=== PATIENT | male | born 1950 | race Caucasian/White ===

== ENCOUNTER → 2017-07-03 | Day surgery (SDC) | payer OTHER, BC ==
[2017-06-20 07:46] VITALS: Ht 162.6 cm; Wt 81.8 kg
[~2017-07-03] VITALS: Ht 162.6 cm; Wt 81.8 kg
[~2017-07-03] MED LIST: 500ML BSS 0.3ML EPI 1:1000PF IRRIG ONE; AMVISC PLUS 0.8ML SYRINGE INT OCU ONE; ASCO500T3 PO; ASPCH81X PO; ATROPINE SULFATE 0.1 MG/ML 5ML SYR IV PRN; BSS FLUSH ONE; BUPR-79 PO; CARV12.5 PO; CHOL1000 PO; CLON0.5T3 PO; ENDOCOAT 0.85ML SYRINGE INT OCU ONE; EpHEDrine SULFATE INJ 50 MG/ML AMP IV PRN; EpINEphrine INJ 1MG/ML AMP 1 MG/ML AMP ONE; FERR1TAB23 PO; FINA5TAB PO; FLM4 PO; FRS/40 PO; GLIM4TAB2 PO; LACTATED RINGER'S 1000ML 500 ML IV SCH; LIDOCAINE 4% OP SOLN DROP CHARGE ONE; LIDOCAINE 4% OP SOLN DROP CHARGE OPL SCH; LIDOCAINE HCL 1% MPF 2 ML VIAL ONE; LOSA50TA54 PO; METF-384 PO; MIDAZOLAM HCL 1 MG/ML 2ML VIAL ONE; MIX: 4ML BSS 1ML EPI 1:1000 PF TOP ONE; MOXIFLOXACIN OPH SOLN PER DROP CHARGE ONE; NTRGSL/4 UT; PANT40TA PO; POVIDONE-IODINE OP SOLN 30 ML BTL ONE; PROPARACAINE 0.5% OP SOLN PER DROP CHARGE OPL SCH; SIMV40TA2 PO; SPR25 PO; SUCR1TAB29 PO; SYMIN160 INH; TIOT1SPR INH; TOBRAMYCIN/DEXAMETHASONE OPH OINT PER APPLN CHARGE ONE; VITAMIN B12 PO; VNTHFA/IN INH; WARF2TAB8 PO; ZOLP10TA6 PO; [UNRECOGNIZED DRUG - OTHER] PO
--- NOTE | 2017-07-03 11:35 | History & Physical Bridge - [place] ---
H&P Re-Evaluation Bridge Note: I have examined the patient, reviewed the History & Physical and in the interval since the performance of the History & Physical I have noted the following changes of clinical significance: No changes noted
[2017-07-03] MEDS: PHENYLEPHRINE HCL 2.5% OP SOLN PER DROP CHARGE OPL SCH ×3 (11:38→11:48)
[2017-07-03] MEDS: TROPICAMIDE 1% OP SOLN PER DROP CHARGE OPL SCH ×3 (11:39→11:49)
[2017-07-03] MEDS: CYCLOPENTOLATE HCL 1% OP SOLN PER DROP CHARGE OPL SCH ×3 (11:40→11:50)
[2017-07-03] MEDS: MOXIFLOXACIN OPH SOLN PER DROP CHARGE OPL SCH ×3 (11:41→11:51)
--- NOTE | 2017-07-03 12:41 | [facility] Post Operative Brief Note ---
Immediate Operative Summary Operative Date Jul 03, 2017. Pre-Operative Diagnosis Cataract left eye Post-Operative Diagnosis Same Procedure(s) Performed Left Cataract Phacoemulsification With Intraocular Lens Implant Surgeon Sales Forecast Analyst Surgeon(s) None Estimated Blood Loss Zero Findings left cataract Specimens None Complication(s) None Disposition
--- NOTE | 2017-07-03 12:42 | [facility] Operative Report ---
Operative Report Date of Service Jul 03, 2017. Operative Report DATE OF OPERATION: 07/03/17 PREOPERATIVE DIAGNOSIS: Senile nuclear cataract, left eye POSTOPERATIVE DIAGNOSIS: Senile nuclear cataract, left eye PROCEDURE PERFORMED: Phacoemulsification with intraocular lens implantation, left eye SURGEON: Dr. Hugh Jacobs ANESTHESIA: Topical with 1% intracameral lidocaine and monitored anesthesia care COMPLICATIONS: None DESCRIPTION OF PROCEDURE: After positively identifying the patient both verbally and by wristband in the preoperative area, the left eye was marked as the operative eye. The patient was then brought back to the operating room by the anesthesia and nursing staff where they were given a drop of Lidocaine and betadine into the operative eye. They were then sterilely prepped and draped in the standard fashion typical for ophthalmic surgery. Steri-strips were placed along the upper eyelids to keep the lashes back, and a lid speculum was placed into the operative eye. At this point, a documented time out was performed with members of the ophthalmology, nursing, and anesthesia staffs all agreeing upon the correct patient, correct location for surgery, correct procedure, and correct type and power of intraocular lens to be implanted. The microscope was then swung into position. First, a paracentesis wound was made using a sideport blade. Then, in sequence, 1% preservative-free lidocaine followed by Endocoat viscoelastic was injected into the anterior chamber. Next , the main incision was made with a keratome blade in triplanar fashion. A sharp cystotome was introduced into the eye and used to create a tear in the anterior capsule, which was directed into a continuous curvilinear capsulorrhexis using Utrata forceps. Hydrodissection was then performed with BSS on a flat-tip cannula. Next, the phacoemulsification handpiece was introduced into the eye and used to remove the nucleus in a [id number] fashion. This was done without complication and then the irrigation-aspiration handpiece was introduced into the eye and used to remove all remaining cortical and epinuclear material. Amvisc was then injected into the anterior chamber as well as into the capsular bag and using the lens injector system, an MX60 14.5 D lens, serial number [id number], and expiration date 11/2017 was injected into the capsular bag and rotated into the correct position. Next, the irrigation- aspiration handpiece was used to remove all remaining Amvisc. BSS was used to hydrate the main wound, and then BSS was injected into the paracentesis site to reach physiologic pressure and then the main wound was checked and found to be watertight. The patient was given drops of Vigamox and Tobradex ointment into the operative eye, and then the surrounding area was cleaned and dried. A clear plastic shield was placed over the eye and the patient was then sat up and taken from the operating room by the anesthesia staff having tolerated the procedure well and suffering no complications. DISPOSITION: The patient was returned to the recovery room in stable condition. I attest to the content of the Intraoperative Record and any orders documented therein. Any exceptions are noted below.
--- NOTE | 2017-07-03 12:43 | Discharge Instructions-SurgCtr ---
Discharge Instructions Date of Service Jul 03, 2017. Visit Reason for Visit: Left Cataract Discharge Discharge Diagnosis / Problem: left cataract Discharge Goals Goal(s): Decrease discomfort, Improve function Activity Recommendations Activity Limitations: as noted below Anesthesia . Post Anesthesia Instructions: If you have had General Anesthesia or IV Sedation: * Do not drive today. * Resume driving when surgeon permits. * Do not make important decisions or sign legal documents today. * Call surgeon for: 1. Temperature elevations greater than 101 degrees F. 2. Uncontrollable pain. 3. Excessive bleeding. 4. Persistent nausea and vomiting. 5. Medication intolerance (nausea, vomiting or rash). * For nausea and vomiting use only clear liquids such as: tea, soda, bouillon until nausea subsides, then gradually increase diet as tolerated. * If you have any concerns or questions, call your surgeon's office. If physician is unavailable and it is an emergency, call 911 or go to the nearest emergency room. . Instructions / Follow-Up Instructions / Follow-Up ACTIVITY RECOMMENDATIONS: * Light activities. * You may walk outside, read, watch television. * You may notice redness on the white part of the eye and some blurry vision - this is normal. MEDICATIONS: Resume previous medications unless instructed otherwise by your surgeon. Start all eye drops at 2:30 pm today: * Eye drops (today): Prednisone - one drop in operative eye every 2 hours while awake Ofloxacin - one drop in operative eye every 2 hours while awake Prolensa - one drop in operative eye daily SPECIAL CARE INSTRUCTIONS: * Tape plastic shield over eye to sleep at night. Call your doctor at with any concerns or problems. FOLLOW UP VISIT: Follow-up with Dr Jacobs at [place] office as scheduled. Diet Recommendations Home Diet: no limitations Procedures Procedures Performed: Left Cataract Phacoemulsification With Intraocular Lens Implant Pending Studies Studies pending at discharge: no Medical Emergencies . Who to Call and When: Medical Emergencies: If at any time you feel your situation is an emergency, please call 911 immediately. . Non-Emergent Contact Non-Emergency issues call your: Surgeon . . "Provider Documentation" section prepared by Hugh Jacobs. .
[2017-07-03 12:44] VITALS: TEMP 36.9
--- NOTE | 2017-07-03 12:47 | Anesthesia Progress Nt - [facility] ---
Anesthesia Post Op Note Date & Time Jul 03, 2017 at 12:47 Vital Signs Pain Intensity: 0 Notes Mental Status: alert / awake / arousable, participated in evaluation Pt Amnestic to Procedure: Yes Nausea / Vomiting: adequately controlled Pain: adequately controlled Airway Patency, RR, SpO2: stable & adequate BP & HR: stable & adequate Hydration State: stable & adequate Anesthetic Complications: no major complications apparent
[2017-07-03 13:11] VITALS: BP 124/76; PULSE 71; O2SAT 95
== END | disposition home or self-care (01) ==
LOC: X.SURG 10:32
PROVIDERS: ATTEND Ophthalmology
DX: E11.36 Type 2 diabetes mellitus with diabetic cataract (principal); H25.12 Age-related nuclear cataract, left eye; I25.2 Old myocardial infarction; J45.909 Unspecified asthma, uncomplicated; J44.9 Chronic obstructive pulmonary disease, unspecified; G47.33 Obstructive sleep apnea (adult) (pediatric); Z79.899 Other long term (current) drug therapy

== ENCOUNTER → 2017-07-17 | Day surgery (SDC) | payer OTHER, BC ==
[2017-07-11 07:32] VITALS: Ht 162.6 cm; Wt 81.8 kg
[~2017-07-17] VITALS: Ht 162.6 cm; Wt 81.8 kg
[~2017-07-17] MED LIST changes: -CLON0.5T3 PO; -EpHEDrine SULFATE INJ 50 MG/ML AMP IV PRN; +KLN/5 PO; -LIDOCAINE 4% OP SOLN DROP CHARGE OPL SCH; +LIDOCAINE 4% OP SOLN DROP CHARGE OPR SCH; -PROPARACAINE 0.5% OP SOLN PER DROP CHARGE OPL SCH; +PROPARACAINE 0.5% OP SOLN PER DROP CHARGE OPR SCH; +SPIR25TA6 PO; -SPR25 PO
[2017-07-17] MEDS: PHENYLEPHRINE HCL 2.5% OP SOLN PER DROP CHARGE OPR SCH ×3 (09:46→09:56)
[2017-07-17] MEDS: TROPICAMIDE 1% OP SOLN PER DROP CHARGE OPR SCH ×3 (09:47→09:57)
[2017-07-17] MEDS: CYCLOPENTOLATE HCL 1% OP SOLN PER DROP CHARGE OPR SCH ×3 (09:48→09:58)
[2017-07-17] MEDS: MOXIFLOXACIN OPH SOLN PER DROP CHARGE OPR SCH ×3 (09:49→09:59)
--- NOTE | 2017-07-17 11:04 | [facility] Post Operative Brief Note ---
Immediate Operative Summary Operative Date Jul 17, 2017. Pre-Operative Diagnosis Cataract Right Eye Post-Operative Diagnosis Same Procedure(s) Performed Right Cataract Phacoemulsification With Intraocular Lens Implant Surgeon Dr. Jacobs Short Story Writer Surgeon(s) None Estimated Blood Loss 0 Findings right cataract Specimens None Complication(s) None Disposition
--- NOTE | 2017-07-17 11:05 | [facility] Operative Report ---
Operative Report Date of Service Jul 17, 2017. Operative Report DATE OF OPERATION: 07/17/17 PREOPERATIVE DIAGNOSIS: Senile nuclear cataract, right eye POSTOPERATIVE DIAGNOSIS: Senile nuclear cataract, right eye PROCEDURE PERFORMED: Phacoemulsification with intraocular lens implantation, right eye SURGEON: Dr. Hugh Jacobs ANESTHESIA: Topical with 1% intracameral lidocaine and monitored anesthesia care COMPLICATIONS: None DESCRIPTION OF PROCEDURE: After positively identifying the patient both verbally and by wristband in the preoperative area, the right eye was marked as the operative eye. The patient was then brought back to the operating room by the anesthesia and nursing staff where they were given a drop of Lidocaine and betadine into the operative eye. They were then sterilely prepped and draped in the standard fashion typical for ophthalmic surgery. Steri-strips were placed along the upper eyelids to keep the lashes back, and a lid speculum was placed into the operative eye. At this point, a documented time out was performed with members of the ophthalmology, nursing, and anesthesia staffs all agreeing upon the correct patient, correct location for surgery, correct procedure, and correct type and power of intraocular lens to be implanted. The microscope was then swung into position. First, a paracentesis wound was made using a sideport blade. Then, in sequence, 1% preservative-free lidocaine followed by Endocoat viscoelastic was injected into the anterior chamber. Next , the main incision was made with a keratome blade in triplanar fashion. A sharp cystotome was introduced into the eye and used to create a tear in the anterior capsule, which was directed into a continuous curvilinear capsulorrhexis using Utrata forceps. Hydrodissection was then performed with BSS on a flat-tip cannula. Next, the phacoemulsification handpiece was introduced into the eye and used to remove the nucleus in a [id number] fashion. This was done without complication and then the irrigation-aspiration handpiece was introduced into the eye and used to remove all remaining cortical and epinuclear material. Amvisc was then injected into the anterior chamber as well as into the capsular bag and using the lens injector system, an MX60 15.0 D lens, serial number [id number], and expiration date 12/2019 was injected into the capsular bag and rotated into the correct position. Next, the irrigation- aspiration handpiece was used to remove all remaining Amvisc. BSS was used to hydrate the main wound, and then BSS was injected into the paracentesis site to reach physiologic pressure and then the main wound was checked and found to be watertight. The patient was given drops of Vigamox and Tobradex ointment into the operative eye, and then the surrounding area was cleaned and dried. A clear plastic shield was placed over the eye and the patient was then sat up and taken from the operating room by the anesthesia staff having tolerated the procedure well and suffering no complications. DISPOSITION: The patient was returned to the recovery room in stable condition. I attest to the content of the Intraoperative Record and any orders documented therein. Any exceptions are noted below.
[2017-07-17 11:06] VITALS: TEMP 36.7
--- NOTE | 2017-07-17 11:06 | Discharge Instructions-SurgCtr ---
Discharge Instructions Date of Service Jul 17, 2017. Visit Reason for Visit: Cataract Right Eye Discharge Discharge Diagnosis / Problem: right cataract Discharge Goals Goal(s): Decrease discomfort, Improve function Medications Stopped Medications Name(s): METFORMIN LAST DOSE 07/14/17 Activity Recommendations Activity Limitations: as noted below Anesthesia . Post Anesthesia Instructions: If you have had General Anesthesia or IV Sedation: * Do not drive today. * Resume driving when surgeon permits. * Do not make important decisions or sign legal documents today. * Call surgeon for: 1. Temperature elevations greater than 101 degrees F. 2. Uncontrollable pain. 3. Excessive bleeding. 4. Persistent nausea and vomiting. 5. Medication intolerance (nausea, vomiting or rash). * For nausea and vomiting use only clear liquids such as: tea, soda, bouillon until nausea subsides, then gradually increase diet as tolerated. * If you have any concerns or questions, call your surgeon's office. If physician is unavailable and it is an emergency, call 911 or go to the nearest emergency room. . Instructions / Follow-Up Instructions / Follow-Up ACTIVITY RECOMMENDATIONS: * Light activities. * You may walk outside, read, watch television. * You may notice redness on the white part of the eye and some blurry vision - this is normal. MEDICATIONS: Resume previous medications unless instructed otherwise by your surgeon. Start all eye drops at 1 pm today: * Eye drops (today): Prednisone - one drop in operative eye every 2 hours while awake Ofloxacin - one drop in operative eye every 2 hours while awake Prolensa - one drop in operative eye daily SPECIAL CARE INSTRUCTIONS: * Tape plastic shield over eye to sleep at night. Call your doctor at with any concerns or problems. FOLLOW UP VISIT: Follow-up with Dr Jacobs at [place] office as scheduled. Diet Recommendations Home Diet: no limitations Procedures Procedures Performed: Right Cataract Phacoemulsification With Intraocular Lens Implant Pending Studies Studies pending at discharge: no Medical Emergencies . Who to Call and When: Medical Emergencies: If at any time you feel your situation is an emergency, please call 911 immediately. . Non-Emergent Contact Non-Emergency issues call your: Surgeon . . "Provider Documentation" section prepared by Hugh Jacobs. .
[2017-07-17 11:38] VITALS: BP 131/77; PULSE 72; O2SAT 97
--- NOTE | 2017-07-17 11:40 | Anesthesia Progress Nt - [facility] ---
Anesthesia Post Op Note Date & Time Jul 17, 2017 at 11:40 Vital Signs Vital Signs Past 12 Hours Date Time Temp Pulse Resp B/P (MAP) Pulse Ox O2 Delivery O2 Flow Rate FiO2 07/17/17 11:06 36.7 73 16 123/73 (90) 95 Room Air 07/17/17 09:41 36.7 73 16 130/78 (95) 95 Room Air Notes Mental Status: alert / awake / arousable, participated in evaluation Pt Amnestic to Procedure: Yes Nausea / Vomiting: adequately controlled Pain: adequately controlled Airway Patency, RR, SpO2: stable & adequate BP & HR: stable & adequate Hydration State: stable & adequate Anesthetic Complications: no major complications apparent
== END | disposition home or self-care (01) ==
LOC: X.SURG 09:10
PROVIDERS: ATTEND Ophthalmology
DX: H25.11 Age-related nuclear cataract, right eye (principal); E11.9 Type 2 diabetes mellitus without complications; I10 Essential (primary) hypertension; E78.00 Pure hypercholesterolemia, unspecified; K21.9 Gastro-esophageal reflux disease without esophagitis; Z86.73 Personal history of transient ischemic attack (TIA), and cerebral infarction without residual deficits; J44.9 Chronic obstructive pulmonary disease, unspecified; G47.30 Sleep apnea, unspecified; F41.9 Anxiety disorder, unspecified; Z95.818 Presence of other cardiac implants and grafts; Z95.0 Presence of cardiac pacemaker; I25.10 Atherosclerotic heart disease of native coronary artery without angina pectoris; I25.2 Old myocardial infarction; Z96.649 Presence of unspecified artificial hip joint; I50.9 Heart failure, unspecified; Z98.42 Cataract extraction status, left eye; Z79.01 Long term (current) use of anticoagulants; Z79.82 Long term (current) use of aspirin

== ENCOUNTER 2024-08-19 17:07 | Inpatient (IN) ==
--- NOTE | 2024-08-19 17:15 | ED Triage Note ---
Date of Service August 19, 2024 Provider in Triage Author: Debbie Holloway History of Present Illness This patient was briefly evaluated while in triage. An abbreviated physical exam was performed. This patient is a 74-year-old Male who presents to the ED for evaluation shortness of breath and chest tightness with exertion for several days went to [facility] today (was + influenza) per patient report, they were admitting him, but he didn't want to wait to be seen, so left and came to our facility. extensive cardiac history, hx of CVA, on warfarin. Physical Exam GENERAL: NAD CARDIOVASCULAR: tachycardic in 120s RESPIRATORY: BS diminished ABDOMEN: BS x 4. Nontender to palpation. Initial orders for labs and / or imaging were placed and patient was placed in the waiting area until a bed is available. Please see further documentation for the full ED course.
[2024-08-19 17:48] LABS: Hematocrit (blood only) 42.9 % (42.0-52.0); Hemoglobin 14.1 g/dl (14.0-18.0); Mean Corpuscular Hemoglobin 31.5 pg (25.0-34.0); Mean Corpuscular Hgb Conc 32.9 g/dL (32.0-36.0); Mean Corpuscular Volume 95.8 fL (80.0-100.0); Mean Platelet Volume 9.5 fL (9.4-12.4); Platelet Count 222 K/uL (130-400); RDW Coefficient of Variation 17.1 % (11.5-14.5); RDW Standard Deviation 59.9 fL (36.4-46.3); Red Blood Count 4.48 M/uL (4.70-6.10); White Blood Count 6.15 K/ul (4.8-10.8)
[2024-08-19 18:08] LABS: Albumin Globulin Ratio 1.5 (0.9-2); Albumin Level 4.4 gm/dl (3.4-5.0); BUN Creatinine Ratio 20.1 (10-20); Bilirubin,Total 0.5 mg/dl (0.2-1.0); Calcium 8.7 mg/dl (8.6-10.3); Creatinine Clr Calc Pharmacy 37.8 ml/min; Globulin 2.9 gm/dl (2.5-4.0); Potassium 4.1 mmol/L (3.5-5.1); Total Protein 7.3 gm/dl (6.0-8.3)
[2024-08-19 18:12] LABS: Basophils # (auto) 0.01 K/uL (0.00-0.20); Basophils % (auto) 0.2 %; Immature Granulocytes # (auto) 0.04 K/uL (0.01-0.20); Immature Granulocytes % (auto) 0.7 %; Lymphocytes # (auto) 0.25 K/uL (1.20-3.40); Lymphocytes % (auto) 4.1 %; Monocytes # (auto) 0.02 K/uL (0.11-0.59); Monocytes % (auto) 0.3 %; Neutrophils # (auto) 5.83 K/uL (1.40-6.50); Neutrophils % (auto) 94.7 %; Ovalocytes 1+; Troponin I High Sensitivity 26.9 pg/ml (0-20)
[2024-08-19] MEDS: SODIUM CHLORIDE 0.9% 1,000 ML IV ONE (18:25)
[2024-08-19 18:33] LABS: Adenovirus PCR Not Detected (NotDetected); Bordetella parapertussis PCR Not Detected (NotDetected); Bordetella pertussis PCR Not Detected (NotDetected); Chlamydia pneumoniae PCR Not Detected (NotDetected); Coronavirus 229E PCR Not Detected (NotDetected); Coronavirus CoV-2 (COVID19)PCR Not Detected (NotDetected); Coronavirus HKU1 PCR Not Detected (NotDetected); Coronavirus NL63 PCR Not Detected (NotDetected); Coronavirus OC43PCR Not Detected (NotDetected); Human Metapneumovirus PCR Not Detected (NotDetected); Influenza A (H3) PCR DETECTED (NotDetected); Influenza B PCR Not Detected (NotDetected); Mycoplasma pneumoniae PCR Not Detected (NotDetected); Parainfluenza Virus 1 PCR Not Detected (NotDetected); Parainfluenza Virus 2 PCR Not Detected (NotDetected); Parainfluenza Virus 3 PCR Not Detected (NotDetected); Parainfluenza Virus 4 PCR Not Detected (NotDetected); Respiratory Syncytial VirusPCR Not Detected (NotDetected); Rhinovirus/Enterovirus PCR Not Detected (NotDetected)
[2024-08-19 18:37] LABS: INR 3.1 (0.9-1.1); Partial Thromboplastin Ratio 1.6; Partial Thromboplastin Time 44 Seconds (21-31); Prothrombin Time 30.3 Seconds (9.0-12.0)
--- NOTE | 2024-08-19 18:45 | XRay Report ---
EXAM: Radiograph of the Chest 1 View INDICATION: Shortness of breath. TECHNIQUE: Frontal view of the chest. COMPARISON: No relevant prior studies available. FINDINGS: Lungs and pleural spaces: Moderate consolidation left lung base and small left pleural effusion noted. No pneumothorax. Heart: Shape and configuration within normal limits allowing for technique. Mediastinum: Normal contour. Bones/joints: No fracture, erosion or dislocation. Soft tissues: No abnormality noted. No radiopaque foreign body noted. Tubes, lines and devices: Prominent cardiac shadow. Right ventricular pacing lead intact. Upper abdomen: No abnormality noted. IMPRESSION: Moderate consolidation left lung base and small left pleural effusion noted. Consider pneumonia and mucous plugging. ACT 112: Negative or not required by law. Electronically signed by Ghada Gomes 08-19-2024 6:45 PM
[2024-08-19] MEDS ORDERED: CARBOHYDRATES FOR HYPOGLYCEMIA PO PRN ×2 (18:53→21:34)
[2024-08-19] MEDS ORDERED: DEXTROSE 50% 50 ML SYRINGE IV PRN ×2 (18:53→21:34)
[2024-08-19] MEDS ORDERED: GLUCOSE 10 TAB/TUBE PO PRN ×2 (18:53→21:34)
[2024-08-19] MEDS ORDERED: GLUCAGON FOR INJ 1 MG VIAL SQ PRN ×2 (18:53→21:34)
[2024-08-19] MEDS ORDERED: GLUCOSE 40% GEL 15 GM TUBE PO PRN ×2 (18:53→21:34)
--- NOTE | 2024-08-19 18:53 | Emergency Department Note ---
Impression & Plan DKA (diabetic ketoacidosis) ADMIT ED Provider Note HPI: History obtained from patient. The patient is a 74-year-old gentleman with history of previous stroke, diabetes, presents the emergency department today with a chief complaint of cough, shortness of breath, chest pressure with exertion. Patient states he has had the symptoms for the past 4 days. Patient states that he was seen this morning at [facility] in the ER, he states he was recommended for admission but he signed out AMA because it was taking too long to get his home medications. Patient therefore came to this emergency department to be assessed, on arrival here to the ED the patient is initially tachycardic and hypertensive, he was initially saturating at 93% on room air on arrival. ROS: - Per HPI Differential Diagnosis: Pneumonia, viral upper respiratory infection to include COVID-19, influenza A, pneumonia, ACS, pulmonary embolism, amongst other potential pathologies. *Outpatient medications and allergy history reviewed. PE: General: Alert HEENT: Normocephalic, trachea midline Eyes: Extraocular eye movement is intact, no scleral erythema Pulmonary: Clear to auscultation bilaterally, no wheezing Cardio: Tachycardic rate with regular rhythm GI: Abdomen is soft to palpation : No suprapubic tenderness MSK: No evidence of trauma or malformation of the extremities, no edema Skin: No evidence of rash Neuro: Alert, no focal deficits Psychiatric: Cooperative INDEPENDENT INTERPRETATIONS: residential monitor: (As interpreted by myself): - An order was placed for continuous cardiac monitoring - Patient was noted to be in sinus tachycardia with a rate of 120 EKG: (As interpreted by myself): Rate: 124 Rhythm: Sinus tachycardia Intervals: Within normal limits ST changes: No ST elevation Time: 1723 Chest x-ray: (As interpreted by myself): Left lower lobe pneumonia Interventions provided in ED: -IV fluid bolus, IV insulin drip, Tamiflu Medical Decision Making: IV was established and lab work obtained, patient was placed on manager monitoring. Lab work shows no leukocytosis, hemoglobin is normal, platelet count is normal, INR is therapeutic at 3.1, CMP shows creatinine 1.64 which is slightly elevated for the patient, blood glucose level is 490, serum bicarbonate level is slightly reduced at 19, initial high-sensitivity troponin level is mildly elevated. EKG does not show any evidence of acute ischemic changes per my interpretation. Viral panel testing was obtained and the patient is positive for influenza A, chest x-ray shows what appears to be a left lower lobe infiltrate. I think this is likely viral. Given the patient's lab work findings he was initiated on IV fluids and eventually an insulin drip over concern for a mild DKA. I discussed the patient's presentation with the on-call hospitalist, Dr. Lagunas, and the patient was placed for admission in stable condition. Patient was in agreement for admission and he was admitted in stable condition. Consultants/Discussions held with other healthcare providers: -Hospitalist, Dr. Lagunas Disposition discussion held by myself with: -Patient * CRITICAL CARE TIME: ( 44 ) minutes -I personally spent 44 minutes of critical care time on this patient independent of any procedures and diagnosis and management of diabetic ketoacidosis requiring initiation of insulin drip, interpretation of diagnostic studies, discussion with other healthcare providers and arrangement of admission. Diagnosis: 1. Diabetic ketoacidosis, acute 2. Influenza A infection, acute 3. Viral pneumonia, acute 4. Elevated creatinine, acute Disposition: Admission Kt Magana DO Emergency Medicine Past Med/Surg History Problem List (Updated 08/19/24 @ 22:36 by Kt Magana DO) DKA (diabetic ketoacidosis) (Acute) Hyperglycemia Hypomagnesemia Influenza Acute hypoxemic respiratory failure Ischemic cardiomyopathy Encounter for pre-operative examination Urinary incontinence BPH loc w/o ur obs/LUTS Recurrent UTI Bladder neck contracture Medical History CAD (coronary artery disease) HFrEF (heart failure with reduced ejection fraction) Posterior cerebral artery syndrome Carotid artery stenosis Hx MRSA infection 2014 unknown source-[facility] Hx of sepsis hospitalized 09/10/[address] [place]- w/ kidney infection- multiple kidney infections in the past few months Christian catheter in place Pacemaker [employer] 2015- last checked 09/2022 GERD (gastroesophageal reflux disease) IBS (irritable bowel syndrome) Diabetes mellitus, type 2 On anticoagulant therapy on warfarin Anxiety Depression Stroke 08/28/21- right sided weakness and hip weakness 2012--short term memory loss, "left/right eye top right corner can not see out of"--d/t clot, reason for warfarin Hypertension Hyperlipidemia 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 Flory Avalos Myocardial Infarction 1994 and 2001 Sleep apnea cpap Chronic obstructive pulmonary disease Asthma inhalers daily and prn Surgical History History of prostate surgery laser procedure History of total left hip replacement History of colonoscopy History of esophagogastroduodenoscopy (EGD) History of cholecystectomy History of tooth extraction all teeth Hx of parathyroidectomy partial History of bilateral cataract extraction History of angioplasty 1994 @ [place] History of heart artery stent x4--10/2001, 11/2007, 04/2015; 2019 [facility] [place] History of cardiac cath 2001 @ [place]/2007 X 1 STENT @ [place]/2014 X 1 STENT @ [facility]; 2018 [facility] Family History Aunt Family history of diabetes mellitus Other No family history of adverse response to anesthesia Social History Smoking Status: Former smoker Cigarettes Per Day: QUIT 01/1995; Second Hand Exposure: No; Do You Dip or Chew Tobacco: No; Hx Alcohol Use: No Hx Substance Use: No Preferred Language: Northern Irish Communication Ability: Effective Certified Medical Asst Required: No Beliefs That Will Affect Care: None Current Living Situation: Spouse Feels Safe at Home: Yes Assistive Devices: CPAP, Denture - Upper, Denture - Lower and Glasses Allergies Allergies Allergy/AdvReac Type Severity Reaction Status Date / Time venlafaxine Allergy Intermediate abnormal Verified 08/19/24 19:24 sexual function azithromycin Allergy Mild Hives Verified 08/19/24 19:24 [From Zithromax Z-Konrad] levofloxacin Allergy Unknown unknown Verified 08/19/24 19:24 Penicillins Allergy Unknown rash Verified 08/19/24 19:24 phenylpropanolamine Allergy Unknown RASH Verified 08/19/24 19:24 phenyltoloxamine Allergy Unknown RASH Verified 08/19/24 19:24 adhesive tape AdvReac Unknown pulls off Verified 08/19/24 19:24 skin sinubid Allergy Unknown Hives Uncoded 08/19/24 19:24 mirtazapine AdvReac Severe dysphoria Uncoded 08/19/24 19:24 Home Meds Home Medications Medication Instructions Recorded Confirmed albuterol sulfate 90 mcg/actuation 2 - 4 puff inhalation Q6H PRN 08/15/18 08/19/24 aerosol inhaler (Ventolin HFA) Shortness Of Breath ascorbic acid (vitamin C) 500 mg 1 cap PO 3XWK 08/15/18 08/19/24 capsule atorvastatin 80 mg tablet 80 mg PO HS 08/15/18 08/19/24 cholecalciferol (vitamin D3) 25 1,000 unit PO QPM 08/15/18 08/19/24 mcg (1,000 unit) capsule (Vitamin D3) clonazepam 0.5 mg tablet 0.25 mg PO DAILY PRN Anxiety 08/15/18 08/19/24 ferrous sulfate 325 mg (65 mg 325 mg PO 3XWK 08/15/18 08/19/24 iron) tablet nitroglycerin 0.4 mg sublingual 1 dose sublingual UD PRN Angina 08/15/18 08/19/24 tablet pantoprazole 40 mg tablet,delayed 40 mg PO QAM 08/15/18 08/19/24 release spironolactone 25 mg tablet 25 mg PO QAM PRN Shortness Of 08/15/18 08/19/24 Breath Or Wheezing cranberry fruit 450 mg tablet 450 mg PO QDL 10/31/22 08/19/24 (cranberry) fluticasone propionate 50 1 spray intranasal QDD 10/31/22 08/19/24 mcg/actuation nasal spray,suspension insulin aspart U-100 100 unit/mL 1 sliding scale dose subcut 10/31/22 08/19/24 subcutaneous solution (Novolog USEASDIRECTD U-100 Insulin aspart) insulin glargine 100 unit/mL (3 32 unit subcut QDD 10/31/22 08/19/24 mL) subcutaneous pen isosorbide mononitrate 60 mg 60 mg PO QAM 10/31/22 08/19/24 tablet,extended release 24 hr gmxlav-[id number]-utcflop 1 cap PO DAILY 10/31/22 08/19/24 3,000-9,500-15,000 unit capsule, delayed rel (Creon) sertraline 50 mg tablet 50 mg PO QAM 10/31/22 08/19/24 warfarin 2 mg tablet 2 mg PO UD 10/31/22 08/19/24 torsemide 20 mg tablet 60 mg PO QAM 12/24/22 08/19/24 cyanocobalamin (vitamin B-12) 500 500 mcg PO HS 08/19/24 08/19/24 mcg tablet magnesium chloride 71.5 mg 71.5 mg PO BID 08/19/24 08/19/24 (magnesium chloride) tablet,delayed release (Slow-Mag) metoprolol succinate 25 mg 25 mg PO DAILY 08/19/24 08/19/24 tablet,extended release 24 hr semaglutide 0.25 mg or 0.5 mg (2 0.5 mg subcut WK 08/19/24 08/19/24 mg/3 mL) subcutaneous pen injector (Ozempic) zolpidem 5 mg tablet 5 mg PO HS PRN Sleep 08/19/24 08/19/24 Previous Rx's Medication Instructions Recorded oxybutynin chloride 5 mg tablet 5 mg PO TID #90 tabs 04/07/24 Results & Data (ED) Vital Signs Vital Signs - 24 hr 08/19/24 17:12 08/19/24 17:12 08/19/24 18:03 Temperature 37.1 C Temperature Source Skin Pulse Rate 126 H 121 H Pulse Rate [Apical] Pulse Rhythm Pulse Rhythm [Apical] Pulse Strength [Apical] Respiratory Rate 18 Respiratory Effort / Characteristics Non-Labored Spontaneous Non-Labored Spontaneous Respiratory Depth Normal Normal Respiratory Pattern Regular Blood Pressure 175/80 H Blood Pressure [Right Arm] Blood Pressure Mean 111 Blood Pressure Mean [Right Arm] Blood Pressure Position [Right Arm] Pulse Oximetry 93 Oxygen Delivery Method Room Air Oxygen Flow Rate Sepsis Recent Fever Within 48 Hours No Sepsis New/Unexplained Change in Mental Status N/A Sepsis Action Taken by Nursing No Action Required Oxygen Flow Rate - Titration Pulse Oximetry Post Tiitration 08/19/24 18:13 08/19/24 18:13 08/19/24 18:13 Temperature Temperature Source Pulse Rate 117 H Pulse Rate [Apical] 117 H Pulse Rhythm Regular Pulse Rhythm [Apical] Regular Pulse Strength [Apical] Respiratory Rate 27 H 27 H Respiratory Effort / Characteristics Non-Labored Spontaneous Respiratory Depth Normal Respiratory Pattern Regular Blood Pressure Blood Pressure [Right Arm] 147/81 H Blood Pressure Mean Blood Pressure Mean [Right Arm] 103 Blood Pressure Position [Right Arm] Lying Pulse Oximetry 88 L 93 93 Oxygen Delivery Method Nasal Cannula Nasal Cannula Nasal Cannula Oxygen Flow Rate 0 2 Sepsis Recent Fever Within 48 Hours Sepsis New/Unexplained Change in Mental Status Sepsis Action Taken by Nursing Oxygen Flow Rate - Titration 2 Pulse Oximetry Post Tiitration 93 08/19/24 19:50 08/19/24 20:00 08/19/24 20:22 Temperature Temperature Source Pulse Rate 118 H 114 H Pulse Rate [Apical] 111 H Pulse Rhythm Pulse Rhythm [Apical] Regular Pulse Strength [Apical] Normal Respiratory Rate 18 Respiratory Effort / Characteristics Non-Labored Spontaneous Respiratory Depth Normal Respiratory Pattern Regular Blood Pressure 139/71 144/82 H Blood Pressure [Right Arm] 131/79 Blood Pressure Mean Blood Pressure Mean [Right Arm] 96 Blood Pressure Position [Right Arm] Lying Pulse Oximetry 92 Oxygen Delivery Method Nasal Cannula Oxygen Flow Rate 2 Sepsis Recent Fever Within 48 Hours Sepsis New/Unexplained Change in Mental Status Sepsis Action Taken by Nursing Oxygen Flow Rate - Titration Pulse Oximetry Post Tiitration 08/19/24 20:49 Temperature Temperature Source Pulse Rate Pulse Rate [Apical] 114 H Pulse Rhythm Pulse Rhythm [Apical] Pulse Strength [Apical] Respiratory Rate 24 Respiratory Effort / Characteristics Spontaneous Labored Short of Breath SOB on Exertion Tripoding Respiratory Depth Respiratory Pattern Blood Pressure Blood Pressure [Right Arm] Blood Pressure Mean Blood Pressure Mean [Right Arm] Blood Pressure Position [Right Arm] Pulse Oximetry 93 Oxygen Delivery Method Nasal Cannula Oxygen Flow Rate 3 Sepsis Recent Fever Within 48 Hours Sepsis New/Unexplained Change in Mental Status Sepsis Action Taken by Nursing Oxygen Flow Rate - Titration Pulse Oximetry Post Tiitration Laboratory Data 08/19/24 17:30 08/19/24 17:30 Lab Results 08/19/24 08/19/24 08/19/24 Range/Units 17:28 17:30 19:07 WBC 6.15 (4.8-10.8) K/ul RBC 4.48 L (4.70-6.10) M/uL Hgb 14.1 (14.0-18.0) g/dl POC Hgb (14.0-18.0) g/dl Hct 42.9 (42.0-52.0) % POC Hct (42-52) % MCV 95.8 (80.0-100.0) fL MCH 31.5 (25.0-34.0) pg MCHC 32.9 (32.0-36.0) g/dL RDW Std Deviation 59.9 H (36.4-46.3) fL RDW Coeff of Juine 17.1 H (11.5-14.5) % Plt Count 222 (130-400) K/uL MPV 9.5 (9.4-12.4) fL Immature Gran % (Auto) 0.7 % Neut % (Auto) 94.7 % Lymph % (Auto) 4.1 % [place] % (Auto) 0.3 % Eos % (Auto) 0.0 % Baso % (Auto) 0.2 % Neut # (Auto) 5.83 (1.40-6.50) K/uL Lymph # (Auto) 0.25 L (1.20-3.40) K/uL [place] # (Auto) 0.02 L (0.11-0.59) K/uL Eos # (Auto) 0.00 (0.00-0.50) K/uL Baso # (Auto) 0.01 (0.00-0.20) K/uL Immature Gran # (Auto) 0.04 (0.01-0.20) K/uL Ovalocytes 1+ PT 30.3 H (9.0-12.0) Seconds INR 3.1 H (0.9-1.1) APTT 44 H (21-31) Seconds PTT Ratio 1.6 POC pH (7.35-7.45) POC pCO2 (35-46) mmHg POC pO2 (80-95) mmHg POC HCO3 (19-24) daisy/L POC Total CO2 (24-31) mmol/L POC Base Excess (-9-1.8) daisy/L POC ABG O2 Sat (90-95) % POC Sodium (135-144) mmol/L Sodium 138 (136-145) mmol/L POC Potassium (3.3-5.0) mmol/L Potassium 4.1 (3.5-5.1) mmol/L Chloride 102 (98-107) mmol/L Carbon Dioxide 19 L (21-32) mmol/L Anion Gap 17 H (3-11) BUN 33 H (6-23) mg/dl Creatinine 1.64 H (0.6-1.4) mg/dl Est Cr Clr Drug Dosing 37.8 ml/min eGFR 43.35 BUN/Creatinine Ratio 20.1 H (10-20) Glucose 490 H* (70-99(Fasting)) mg/dl POC Glucose 479 H* (70-99) mg/dl Estimat Average Glucose 120 mg/dl Hemoglobin A1c 5.8 H (4.5-5.6) % Calcium 8.7 (8.6-10.3) mg/dl Phosphorus 2.9 (2.5-4.9) mg/dl Magnesium 1.1 L (1.7-2.4) mg/dl Total Bilirubin 0.5 (0.2-1.0) mg/dl AST 15 (13-39) U/L ALT 14 (7-52) U/L Alkaline Phosphatase 71 (34-104) U/L Troponin I High Sens 26.9 H 96.0 H* D (0-20) pg/ml Total Protein 7.3 (6.0-8.3) gm/dl Albumin 4.4 (3.4-5.0) gm/dl Globulin 2.9 (2.5-4.0) gm/dl Albumin/Globulin Ratio 1.5 (0.9-2) Procalcitonin (0-0.5) ng/ml Adenovirus (PCR) Not Detected (NotDetected) B. pertussis DNA (PCR) Not Detected (NotDetected) B.parapertussis DNA PCR Not Detected (NotDetected) C. pneumoniae DNA (PCR) Not Detected (NotDetected) Coronavirus OC43 (PCR) Not Detected (NotDetected) Coronavirus HKU1 (PCR) Not Detected (NotDetected) Coronavirus 229E (PCR) Not Detected (NotDetected) SARS-CoV-2 (PCR) Not Detected (NotDetected) Coronavirus NL63 (PCR) Not Detected (NotDetected) Human Metapneumovir PCR Not Detected (NotDetected) Influenza A (H3) PCR DETECTED A (NotDetected) Influenza Type B (PCR) Not Detected (NotDetected) M. pneumoniae (PCR) Not Detected (NotDetected) Parainfluenza 1 (PCR) Not Detected (NotDetected) Parainfluenza 2 (PCR) Not Detected (NotDetected) Parainfluenza 3 (PCR) Not Detected (NotDetected) Parainfluenza 4 (PCR) Not Detected (NotDetected) RSV (PCR) Not Detected (NotDetected) Entero/Rhino (PCR) Not Detected (NotDetected) 08/19/24 08/19/24 Range/Units 19:13 19:43 WBC (4.8-10.8) K/ul RBC (4.70-6.10) M/uL Hgb (14.0-18.0) g/dl POC Hgb 14.3 (14.0-18.0) g/dl Hct (42.0-52.0) % POC Hct 42 (42-52) % MCV (80.0-100.0) fL MCH (25.0-34.0) pg MCHC (32.0-36.0) g/dL RDW Std Deviation (36.4-46.3) fL RDW Coeff of Junie (11.5-14.5) % Plt Count (130-400) K/uL MPV (9.4-12.4) fL Immature Gran % (Auto) % Neut % (Auto) % Lymph % (Auto) % [place] % (Auto) % Eos % (Auto) % Baso % (Auto) % Neut # (Auto) (1.40-6.50) K/uL Lymph # (Auto) (1.20-3.40) K/uL [place] # (Auto) (0.11-0.59) K/uL Eos # (Auto) (0.00-0.50) K/uL Baso # (Auto) (0.00-0.20) K/uL Immature Gran # (Auto) (0.01-0.20) K/uL Ovalocytes PT (9.0-12.0) Seconds INR (0.9-1.1) APTT (21-31) Seconds PTT Ratio POC pH 7.38 (7.35-7.45) POC pCO2 34 L (35-46) mmHg POC pO2 61 L (80-95) mmHg POC HCO3 20 (19-24) daisy/L POC Total CO2 21 L (24-31) mmol/L POC Base Excess -5.0 (-9-1.8) daisy/L POC ABG O2 Sat 91.0 (90-95) % POC Sodium 138 (135-144) mmol/L Sodium (136-145) mmol/L POC Potassium 4.3 (3.3-5.0) mmol/L Potassium (3.5-5.1) mmol/L Chloride (98-107) mmol/L Carbon Dioxide (21-32) mmol/L Anion Gap (3-11) BUN (6-23) mg/dl Creatinine (0.6-1.4) mg/dl Est Cr Clr Drug Dosing ml/min eGFR BUN/Creatinine Ratio (10-20) Glucose (70-99(Fasting)) mg/dl POC Glucose (70-99) mg/dl Estimat Average Glucose mg/dl Hemoglobin A1c (4.5-5.6) % Calcium (8.6-10.3) mg/dl Phosphorus (2.5-4.9) mg/dl Magnesium (1.7-2.4) mg/dl Total Bilirubin (0.2-1.0) mg/dl AST (13-39) U/L ALT (7-52) U/L Alkaline Phosphatase (34-104) U/L Troponin I High Sens (0-20) pg/ml Total Protein (6.0-8.3) gm/dl Albumin (3.4-5.0) gm/dl Globulin (2.5-4.0) gm/dl Albumin/Globulin Ratio (0.9-2) Procalcitonin 0.06 (0-0.5) ng/ml Adenovirus (PCR) (NotDetected) B. pertussis DNA (PCR) (NotDetected) B.parapertussis DNA PCR (NotDetected) C. pneumoniae DNA (PCR) (NotDetected) Coronavirus OC43 (PCR) (NotDetected) Coronavirus HKU1 (PCR) (NotDetected) Coronavirus 229E (PCR) (NotDetected) SARS-CoV-2 (PCR) (NotDetected) Coronavirus NL63 (PCR) (NotDetected) Human Metapneumovir PCR (NotDetected) Influenza A (H3) PCR (NotDetected) Influenza Type B (PCR) (NotDetected) M. pneumoniae (PCR) (NotDetected) Parainfluenza 1 (PCR) (NotDetected) Parainfluenza 2 (PCR) (NotDetected) Parainfluenza 3 (PCR) (NotDetected) Parainfluenza 4 (PCR) (NotDetected) RSV (PCR) (NotDetected) Entero/Rhino (PCR) (NotDetected) Administered Medications Parenteral Electrolytes (Plasma-Lyte A Ph 7.4) 250 mls @ 60 mls/hr IV .Q4H10M ONE Stop: 08/19/24 23:52 Last Admin: 08/19/24 20:59 Dose: 60 mls/hr Documented By: HARJIT Magnesium Sulfate/Dextrose (Magnesium Sulfate / D5w) 1 gm in 100 mls @ 50 mls/hr IV Q2H KENDRA Stop: 08/20/24 03:59 Last Admin: 08/19/24 20:57 Dose: 50 mls/hr Documented By: HARJIT Discontinued Medications Sodium Chloride (Nss) 1,000 mls @ 999 mls/hr IV .Q1H1M ONE Stop: 08/19/24 19:18 Last Infusion: 08/19/24 21:54 Dose: Infused Documented By: Admin: 08/19/24 18:25 Dose: 999 mls/hr Documented By: HARJIT Insulin Human Regular 250 (units/ Sodium Chloride) 250 mls @ 8.2 mls/hr IV .Q24H [facility]; Protocol Stop: 09/18/24 18:59 Last Admin: 08/19/24 21:54 Dose: Not Given Documented By: KELLI Insulin Human Regular (Novolin-R Insulin Per Unit Charge) 10 units IV NOW STA Stop: 08/19/24 19:35 Last Admin: 08/19/24 19:55 Dose: 10 units Documented By: HARJIT Co-signed By: BETSY Ipratropium [place] (Ipratropium [place] Neb Soln 0.02% 0.5mg/2.5ml Vial) 0.5 mg NEB NOW STA Stop: 08/19/24 19:40 Last Admin: 08/19/24 20:49 Dose: 0.5 mg Documented By: RASHEEDA Levalbuterol HCl (Levalbuterol 1.25 Mg/3 Ml Neb) 1.25 mg NEB NOW STA Stop: 08/19/24 19:40 Last Admin: 08/19/24 20:49 Dose: 1.25 mg Documented By: RASHEEDA Metoprolol Tartrate (Metoprolol Tartrate 1 Mg/Ml Vial) 2.5 mg IV NOW STA Stop: 08/19/24 19:33 Last Admin: 08/19/24 19:50 Dose: 2.5 mg Documented By: HARJIT Miscellaneous (Stat Iv Infusion Titration Per Protocol) 1 each N/A NOW STA Stop: 08/19/24 18:54 Last Admin: 08/19/24 19:45 Dose: Not Given Documented By: HARJIT Oseltamivir Phosphate (Oseltamivir Phosphate 75 Mg Cap) 75 mg PO NOW STA; Protocol Stop: 08/19/24 18:55 Last Admin: 08/19/24 18:59 Dose: 75 mg Documented By: HARJIT Imaging Data Radiologist's Impression: Chest X-Ray 08/19/24 17:16 EXAM: Radiograph of the Chest 1 View INDICATION: Shortness of breath. TECHNIQUE: Frontal view of the chest. COMPARISON: No relevant prior studies available. FINDINGS: Lungs and pleural spaces: Moderate consolidation left lung base and small left pleural effusion noted. No pneumothorax. Heart: Shape and configuration within normal limits allowing for technique. Mediastinum: Normal contour. Bones/joints: No fracture, erosion or dislocation. Soft tissues: No abnormality noted. No radiopaque foreign body noted. Tubes, lines and devices: Prominent cardiac shadow. Right ventricular pacing lead intact. Upper abdomen: No abnormality noted. IMPRESSION: Moderate consolidation left lung base and small left pleural effusion noted. Consider pneumonia and mucous plugging. ACT 112: Negative or not required by law. Electronically signed by Ghada Gomes 08-19-2024 6:45 PM Discharge Plan Visit Data Chief Complaint: Shortness of Breath/Dyspnea Stated Complaint: +FLU, LOW OX, SOB, TIGHT CHEST ED Provider: Kt Magana Discharge Problem: DKA (diabetic ketoacidosis) Patient Disposition: Admitted As Inpatient Discharge Instructions Interventions: ED Discharge Assessment Last Done: 08/19/24 21:17
[2024-08-19] MEDS: OSELTAMIVIR PHOSPHATE 75 MG CAP PO STA (18:59)
[2024-08-19 19:35] LABS: Magnesium 1.1 mg/dl (1.7-2.4); Phosphorus 2.9 mg/dl (2.5-4.9)
[2024-08-19 19:37] LABS: Estimated Average Glucose 120 mg/dl; Hemoglobin A1C 5.8 % (4.5-5.6)
[2024-08-19] MEDS: STAT IV Infusion **Titration per Protocol STA (19:45)
[2024-08-19] MEDS: METOPROLOL TARTRATE 1 MG/ML VIAL IV STA ×2 (19:50→23:12)
--- NOTE | 2024-08-19 19:53 | History & Physical Report ---
Date of Service August 19, 2024 Assessment & Plan (1) Acute hypoxemic respiratory failure: (2) Influenza: (3) Hypomagnesemia: (4) Hyperglycemia: (5) Diabetes mellitus, type 2: (6) HFrEF (heart failure with reduced ejection fraction): (7) ICD (implantable cardioverter-defibrillator) in place: (8) Chronic obstructive pulmonary disease: (9) Asthma: (10) Sleep apnea: (11) CAD (coronary artery disease): (12) Stroke: (13) On anticoagulant therapy: Plan: HPI, ROS, PE completed by Carlie Ohara PA-C Assessment and Plan per Dr Lagunas. See addendum. History of Present Illness Chief Complaint: Cough Primary Care Provider: Edelmira Scott PA-C Patient is a 74-year-old male with PMH COPD, asthma, DM II, HFrEF, CAD, ischemic cardiomyopathy, ICD in place, CVA, anticoagulated on warfarin, CKD III, GERD, depression, anxiety, LURDES, BPH, chronic suprapubic catheter, left 3rd toe osteo myelitis s/p amputation, presented to ER with complaint of cough and SOB x 3 days. Patient reports 3 days ago started with cough which is productive of white/cream-colored sputum. Also complains of shortness of breath. He states for the past 3 days has also been having chest heaviness and tightness which is worse with walking. He has been having tactile fevers. He states has been using his albuterol inhaler 4 times a day at home which helps with shortness of breath and chest tightness initially and then quickly returns. He states around someone with a cough recently. Denies diaphoresis, N/V/D/C, MONTE, dizziness, syncope, neck pain, palpitations, hemoptysis, choking, otalgia, abdominal pain, extremity weakness, extremity edema, rashes, hematuria. Was seen at [facility] today for complaint of cough, shortness of breath. Per outpatient chart review ER note states patient was hypoxic on room air at rest with O2 sat in the 80s. Patient was found to have +Influenza A PCR. It was recommended patient be admitted, he had declined admission initially as he had requested a private room and then agreed upon admission. Per note patient was admitted by the hospitalist team however patient was still in the ER as bed not immediately available and patient ultimately chose to sign out AMA. Patient presented to [facility] this evening. In ER afebrile, P: 126, R: 27, BP: 175/80, dropped to 88% on RA. Allergies Allergy/AdvReac Type Severity Reaction Status Date / Time venlafaxine Allergy Intermediate abnormal Verified 08/19/24 19:24 sexual function azithromycin Allergy Mild Hives Verified 08/19/24 19:24 [From Zithromax Z-Konrad] levofloxacin Allergy Unknown unknown Verified 08/19/24 19:24 Penicillins Allergy Unknown rash Verified 08/19/24 19:24 phenylpropanolamine Allergy Unknown RASH Verified 08/19/24 19:24 phenyltoloxamine Allergy Unknown RASH Verified 08/19/24 19:24 adhesive tape AdvReac Unknown pulls off Verified 08/19/24 19:24 skin sinubid Allergy Unknown Hives Uncoded 08/19/24 19:24 mirtazapine AdvReac Severe dysphoria Uncoded 08/19/24 19:24 Home Medications Medication Instructions Recorded Confirmed Type albuterol sulfate 90 mcg/actuation 2 - 4 puff inhalation Q6H PRN 08/15/18 08/19/24 History aerosol inhaler (Ventolin HFA) Shortness Of Breath ascorbic acid (vitamin C) 500 mg 1 cap PO 3XWK 08/15/18 08/19/24 History capsule atorvastatin 80 mg tablet 80 mg PO HS 08/15/18 08/19/24 History cholecalciferol (vitamin D3) 25 1,000 unit PO QPM 08/15/18 08/19/24 History mcg (1,000 unit) capsule (Vitamin D3) clonazepam 0.5 mg tablet 0.25 mg PO DAILY PRN Anxiety 08/15/18 08/19/24 History ferrous sulfate 325 mg (65 mg 325 mg PO 3XWK 08/15/18 08/19/24 History iron) tablet nitroglycerin 0.4 mg sublingual 1 dose sublingual UD PRN Angina 08/15/18 08/19/24 History tablet pantoprazole 40 mg tablet,delayed 40 mg PO QAM 08/15/18 08/19/24 History release spironolactone 25 mg tablet 25 mg PO QAM PRN Shortness Of 08/15/18 08/19/24 History Breath Or Wheezing cranberry fruit 450 mg tablet 450 mg PO QDL 10/31/22 08/19/24 History (cranberry) fluticasone propionate 50 1 spray intranasal QDD 10/31/22 08/19/24 History mcg/actuation nasal spray,suspension insulin aspart U-100 100 unit/mL 1 sliding scale dose subcut 10/31/22 08/19/24 History subcutaneous solution (Novolog USEASDIRECTD U-100 Insulin aspart) insulin glargine 100 unit/mL (3 32 unit subcut QDD 10/31/22 08/19/24 History mL) subcutaneous pen isosorbide mononitrate 60 mg 60 mg PO QAM 10/31/22 08/19/24 History tablet,extended release 24 hr okhyis-[id number] 1 cap PO DAILY 10/31/22 08/19/24 History 3,000-9,500-15,000 unit capsule, delayed rel (Creon) sertraline 50 mg tablet 50 mg PO QAM 10/31/22 08/19/24 History warfarin 2 mg tablet 2 mg PO UD 10/31/22 08/19/24 History torsemide 20 mg tablet 60 mg PO QAM 12/24/22 08/19/24 History oxybutynin chloride 5 mg tablet 5 mg PO TID #90 tabs 04/07/24 08/19/24 Rx cyanocobalamin (vitamin B-12) 500 500 mcg PO HS 08/19/24 08/19/24 History mcg tablet magnesium chloride 71.5 mg 71.5 mg PO BID 08/19/24 08/19/24 History (magnesium chloride) tablet,delayed release (Slow-Mag) metoprolol succinate 25 mg 25 mg PO DAILY 08/19/24 08/19/24 History tablet,extended release 24 hr semaglutide 0.25 mg or 0.5 mg (2 0.5 mg subcut WK 08/19/24 08/19/24 History mg/3 mL) subcutaneous pen injector (Ozempic) zolpidem 5 mg tablet 5 mg PO HS PRN Sleep 08/19/24 08/19/24 History Past Med/Surg History Problem List (Updated 08/19/24 @ 22:36 by Kt Magana DO) DKA (diabetic ketoacidosis) (Acute) Hyperglycemia Hypomagnesemia Influenza Acute hypoxemic respiratory failure Ischemic cardiomyopathy Encounter for pre-operative examination Urinary incontinence BPH loc w/o ur obs/LUTS Recurrent UTI Bladder neck contracture Medical History CAD (coronary artery disease) HFrEF (heart failure with reduced ejection fraction) Posterior cerebral artery syndrome Carotid artery stenosis Hx MRSA infection 2014 unknown source-[facility] Hx of sepsis hospitalized 09/10/22 [facility]- w/ kidney infection- multiple kidney infections in the past few months Christian catheter in place Pacemaker [employer] 2015- last checked 09/2022 GERD (gastroesophageal reflux disease) IBS (irritable bowel syndrome) Diabetes mellitus, type 2 On anticoagulant therapy on warfarin Anxiety Depression Stroke 08/28/21- right sided weakness and hip weakness 2012--short term memory loss, "left/right eye top right corner can not see out of"--d/t clot, reason for warfarin Hypertension Hyperlipidemia ICD (implantable cardioverter-defibrillator) in place 03/2016 meditronic @ [facility]---follows with Dr. Flory Avalos Myocardial Infarction 1994 and 2001 Sleep apnea cpap Chronic obstructive pulmonary disease Asthma inhalers daily and prn Surgical History History of prostate surgery laser procedure History of total left hip replacement History of colonoscopy History of esophagogastroduodenoscopy (EGD) History of cholecystectomy History of tooth extraction all teeth Hx of parathyroidectomy partial History of bilateral cataract extraction History of angioplasty 1994 @ [place] History of heart artery stent x4--10/2001, 11/2007, 04/2015; 2018 [facility] History of cardiac cath 2001 @ [place]/2007 X 1 STENT @ [place]/2014 X 1 STENT @ [facility]; 2018 [facility] X 2 Family History Aunt Family history of diabetes mellitus Other No family history of adverse response to anesthesia Social History Smoking Status: Former smoker Cigarettes Per Day: QUIT 01/1995; Second Hand Exposure: No; Do You Dip or Chew Tobacco: No; Hx Alcohol Use: No Hx Substance Use: No Preferred Language: Citizen Of [place] Communication Ability: Effective Technology Applications Engineer Required: No Beliefs That Will Affect Care: None Current Living Situation: Spouse Feels Safe at Home: Yes Assistive Devices: CPAP, Denture - Upper, Denture - Lower and Glasses Review of Systems Review of Systems: All systems reviewed & are unremarkable except as noted in HPI & below Physical Exam Physical Exam: General: no acute distress on 2L O2 via NC, obese elderly male Head: normocephalic, atraumatic Eyes: conjunctiva non-injected, anicteric ENT: normal inspection external ears, nose, mucous membranes moist Neck: supple, trachea midline, non-tender Lungs: no respiratory distress at rest on current 2L via NC with O2 sat 93%, +dyspnea with prolonged talking, RR: 22, +diminished breath sounds throughout with wheezing CV: tachycardia, rate 114, regular rhythm, trace pretibial edema Abd: normal BS, soft, non-tender, +suprapubic catheter in place Ext: no cyanosis, no calf tenderness. left foot: +healing laceration at amputation site at area of 3rd distal metatarsal without any erythema or discharge Neuro: A&O x 3, no focal deficits noted, normal affect Skin: warm, dry Results & Data Results & Data Vital Signs (Past 12 Hours) Vital Signs Temp Pulse Pulse Resp BP BP Pulse Ox 08/19/24 18:13 117 H 27 H 93 08/19/24 18:13 117 H 27 H 147/81 H 93 08/19/24 18:13 88 L 08/19/24 18:03 121 H 08/19/24 17:12 37.1 C 126 H 18 175/80 H 93 O2 Del Method O2 Flow Rate 08/19/24 18:13 Nasal Cannula 08/19/24 18:13 Nasal Cannula 2 08/19/24 18:13 Nasal Cannula 0 08/19/24 18:03 08/19/24 17:12 Room Air Laboratory Results Short CBC 08/19/24 Range/Units 17:30 WBC 6.15 (4.8-10.8) K/ul Hgb 14.1 (14.0-18.0) g/dl Hct 42.9 (42.0-52.0) % Plt Count 222 (130-400) K/uL BMP 08/19/24 17:30 Sodium 138 Potassium 4.1 Chloride 102 Carbon Dioxide 19 L BUN 33 H Creatinine 1.64 H Glucose 490 H* Calcium 8.7 Liver Function 08/19/24 Range/Units 17:30 Total Bilirubin 0.5 (0.2-1.0) mg/dl AST 15 (13-39) U/L ALT 14 (7-52) U/L Alkaline Phosphatase 71 (34-104) U/L Albumin 4.4 (3.4-5.0) gm/dl Diagnostic Findings Chest X-Ray 08/19/24 17:16 EXAM: Radiograph of the Chest 1 View INDICATION: Shortness of breath. TECHNIQUE: Frontal view of the chest. COMPARISON: No relevant prior studies available. FINDINGS: Lungs and pleural spaces: Moderate consolidation left lung base and small left pleural effusion noted. No pneumothorax. Heart: Shape and configuration within normal limits allowing for technique. Mediastinum: Normal contour. Bones/joints: No fracture, erosion or dislocation. Soft tissues: No abnormality noted. No radiopaque foreign body noted. Tubes, lines and devices: Prominent cardiac shadow. Right ventricular pacing lead intact. Upper abdomen: No abnormality noted. IMPRESSION: Moderate consolidation left lung base and small left pleural effusion noted. Consider pneumonia and mucous plugging. ACT 112: Negative or not required by law. Electronically signed by Ghada Gomes 08-19-2024 6:45 PM Supervising Physician Co-Signing Physician Notes IM ATTENDING : Patient seen and examined. History obtained from patient and records. Concur with salient points upon review of preceding documentation by Ms. Carlie Ohara PA-C. In addition, patient with transient epistaxis episode at the ER. I take responsibility for plan of care below. FINAL ASSESSMENT AND PLAN as follows : Acute hypoxemic respiratory failure Secondary to asthma/COPD exacerbation secondary to community-acquired pne umonia/influenza illness Possible sepsis Mild DKA likely secondary to missed home insulin and Solu-Medrol Rx given at [facility] in a.m. DM2 insulin requiring, well-controlled as of today's hemoglobin A1c of 5.8 Troponin elevation secondary to illness Chronic systolic heart failure secondary to ischemic cardiomyopathy status post ICD (EF 25-29%, TTE 2023), patient euvolemic to dry CAD status post stent/PVD Transient epistaxis secondary to respiratory infection, history embolic CVA on Coumadin, patient hemoglobin stable, INR therapeutic Hypertension, elevated secondary illness Hyperlipidemia on statin Rx Hypomagnesemia CRI (creatinine at baseline) LURDES on CPAP Primary hyperparathyroidism status post surgery BPH status post surgery Anxiety/mood disorder, some anxiety during exam Left toe osteomyelitis status post recent podiatric surgery, healing well. Past tobacco abuse Medical telemetry Supplemental O2 CS, Ceftriaxone and Doxycycline Nebs RTC, short course low-dose prednisone course Pulmonary consult if without improvement Tamiflu adjusted for renal function Gentle IV hydration given systolic dysfunction, guideline recommended 30 cc/kg IBW fluid bolus administration over 3 hours for sepsis precluded by systolic dysfunction; resume home diuretic once patient euvolemic Replace magnesium Oral vitamin K 1 dose now given epistaxis in the setting of Coumadin coagulopathy with potential to progress following antibiotic administration, hold Coumadin for now Basal bolus insulin, ISS BG goal 1 10-1 40, carb count coverage DVT prophylaxis. Coumadin INR goal between 2 and 3 if without additional bouts of epistaxis I spent a total of 40 minutes coordinating, documenting, and providing care for this patientexcludingtime spent by another provider/QHP. Text document was generated using [employer] voice recognition software. It may contain grammatical or spelling errors. Kindly contact jonathanigned for clarification of any documentation item in brandyn ocampo.
[2024-08-19] MEDS: NovoLIN-R INSULIN PER UNIT CHARGE IV STA (19:55)
[2024-08-19 19:57] LABS: iSTAT Arterial Blood Gas HCO3 20 meg/L (19-24); iSTAT Arterial Blood Gas pCO2 34 mmHg (35-46); iSTAT Arterial Blood Gas pH 7.38 (7.35-7.45); iSTAT Arterial Blood Gas pO2 61 mmHg (80-95); iSTAT Carbon Dioxide 21 mmol/L (24-31); iSTAT Hematocrit 42 % (42-52); iSTAT Hemoglobin 14.3 g/dl (14.0-18.0); iSTAT Potassium 4.3 mmol/L (3.3-5.0); iSTAT Sodium 138 mmol/L (135-144)
--- NOTE | 2024-08-19 20:41 | History & Physical Report ---
Date of Service August 19, 2024 History of Present Illness Primary Care Provider: Edelmira Scott PA-C Allergies Allergy/AdvReac Type Severity Reaction Status Date / Time venlafaxine Allergy Intermediate abnormal Verified 08/19/24 19:24 sexual function azithromycin Allergy Mild Hives Verified 08/19/24 19:24 [From Zithromax Z-Konrad] levofloxacin Allergy Unknown unknown Verified 08/19/24 19:24 Penicillins Allergy Unknown rash Verified 08/19/24 19:24 phenylpropanolamine Allergy Unknown RASH Verified 08/19/24 19:24 phenyltoloxamine Allergy Unknown RASH Verified 08/19/24 19:24 adhesive tape AdvReac Unknown pulls off Verified 08/19/24 19:24 skin sinubid Allergy Unknown Hives Uncoded 08/19/24 19:24 mirtazapine AdvReac Severe dysphoria Uncoded 08/19/24 19:24 Home Medications Medication Instructions Recorded Confirmed Type albuterol sulfate 90 mcg/actuation 2 - 4 puff inhalation Q6H PRN 08/15/18 08/19/24 History aerosol inhaler (Ventolin HFA) Shortness Of Breath ascorbic acid (vitamin C) 500 mg 1 cap PO 3XWK 08/15/18 08/19/24 History capsule atorvastatin 80 mg tablet 80 mg PO HS 08/15/18 08/19/24 History cholecalciferol (vitamin D3) 25 1,000 unit PO QPM 08/15/18 08/19/24 History mcg (1,000 unit) capsule (Vitamin D3) clonazepam 0.5 mg tablet 0.5 mg PO DAILY PRN Anxiety 08/15/18 08/19/24 History cyanocobalamin (vitamin B-12) 2,500 mcg sublingual HS 08/15/18 08/19/24 History 2,500 mcg sublingual tablet (Vitamin B-12) ferrous sulfate 325 mg (65 mg 325 mg PO 3XWK 08/15/18 08/19/24 History iron) tablet losartan 50 mg tablet 12.5 mg PO QAM 08/15/18 08/19/24 History metformin 850 mg tablet 500 mg PO QID 08/15/18 07/14/24 History nitroglycerin 0.4 mg sublingual 1 dose sublingual UD PRN Angina 08/15/18 07/14/24 History tablet pantoprazole 40 mg tablet,delayed 40 mg PO QAM 08/15/18 07/14/24 History release spironolactone 25 mg tablet 25 mg PO QAM PRN Shortness Of 08/15/18 07/14/24 History Breath Or Wheezing cranberry fruit 450 mg tablet 450 mg PO QDL 10/31/22 08/19/24 History (cranberry) fluticasone propionate 50 1 spray intranasal QDD 10/31/22 08/19/24 History mcg/actuation nasal spray,suspension insulin aspart U-100 100 unit/mL 1 sliding scale dose subcut 10/31/22 08/19/24 History subcutaneous solution (Novolog USEASDIRECTD U-100 Insulin aspart) insulin glargine 100 unit/mL (3 32 unit subcut QDD 10/31/22 08/19/24 History mL) subcutaneous pen isosorbide mononitrate 60 mg 60 mg PO QAM 10/31/22 08/19/24 History tablet,extended release 24 hr [id number] 1 cap PO DAILY 10/31/22 08/19/24 History 3,000-9,500-15,000 unit capsule, delayed rel (Creon) metoclopramide HCl 5 mg tablet 5 mg PO QDL 10/31/22 07/14/24 History metoprolol tartrate 25 mg tablet 25 mg PO QDD 10/31/22 07/14/24 History semaglutide 0.25 mg or 0.5 mg (2 0.5 mg subcut WK 10/31/22 07/14/24 History mg/1.5 mL) subcutaneous pen injector (Ozempic) sertraline 50 mg tablet 50 mg PO QAM 10/31/22 07/14/24 History warfarin 2 mg tablet 2 mg PO UD 10/31/22 07/14/24 History torsemide 20 mg tablet 60 mg PO QAM 12/24/22 07/14/24 History oxybutynin chloride 5 mg tablet 5 mg PO TID #90 tabs 04/07/24 07/14/24 Rx zolpidem 5 mg tablet 5 mg PO HS PRN Sleep 08/19/24 08/19/24 History Past Med/Surg History Problem List (Updated 08/19/24 @ 20:02 by Carlie Ohara PA-C) Hyperglycemia Hypomagnesemia Influenza Acute hypoxemic respiratory failure Ischemic cardiomyopathy Encounter for pre-operative examination Urinary incontinence BPH loc w/o ur obs/LUTS Recurrent UTI Bladder neck contracture Medical History (Updated 08/19/24 @ 20:02 by Carlie Ohara PA-C) CAD (coronary artery disease) HFrEF (heart failure with reduced ejection fraction) Posterior cerebral artery syndrome Carotid artery stenosis Hx MRSA infection 2014 unknown source-[facility] Hx of sepsis hospitalized 09/10/22 [facility]- w/ kidney infection- multiple kidney infections in the past few months Christian catheter in place Pacemaker [employer] 2015- last checked 09/2022 GERD (gastroesophageal reflux disease) IBS (irritable bowel syndrome) Diabetes mellitus, type 2 On anticoagulant therapy on warfarin Anxiety Depression Stroke 08/28/21- right sided weakness and hip weakness 2012--short term memory loss, "left/right eye top right corner can not see out of"--d/t clot, reason for warfarin Hypertension Hyperlipidemia 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 Flory Avalos Myocardial Infarction 1994 and 2001 Sleep apnea cpap Chronic obstructive pulmonary disease Asthma inhalers daily and prn Surgical History History of prostate surgery laser procedure History of total left hip replacement History of colonoscopy History of esophagogastroduodenoscopy (EGD) History of cholecystectomy History of tooth extraction all teeth Hx of parathyroidectomy partial History of bilateral cataract extraction History of angioplasty 1994 @ [place] History of heart artery stent x4--10/2001, 11/2007, 04/2015; 2018 [facility] [place] History of cardiac cath 2001 @ [place]/2007 X 1 STENT @ [place]/2014 X 1 STENT @ [facility]; 2018 [facility] X 2 Family History Aunt Family history of diabetes mellitus Other No family history of adverse response to anesthesia Social History Smoking Status: Former smoker Cigarettes Per Day: QUIT 01/1995; Second Hand Exposure: No; Do You Dip or Chew Tobacco: No; Hx Alcohol Use: No Hx Substance Use: No Preferred Language: Amharic Communication Ability: Effective [employer] Required: No Beliefs That Will Affect Care: None Current Living Situation: Spouse Feels Safe at Home: Yes Assistive Devices: CPAP, Denture - Upper, Denture - Lower and Glasses Results & Data Results & Data Vital Signs (Past 12 Hours) Vital Signs Temp Pulse Pulse Resp BP BP Pulse Ox 08/19/24 20:22 114 H 144/82 H 08/19/24 20:00 111 H 18 131/79 92 08/19/24 19:50 118 H 139/71 08/19/24 18:13 117 H 27 H 93 08/19/24 18:13 117 H 27 H 147/81 H 93 08/19/24 18:13 88 L 08/19/24 18:03 121 H 08/19/24 17:12 37.1 C 126 H 18 175/80 H 93 O2 Del Method O2 Flow Rate 08/19/24 20:22 08/19/24 20:00 Nasal Cannula 2 08/19/24 19:50 08/19/24 18:13 Nasal Cannula 08/19/24 18:13 Nasal Cannula 2 08/19/24 18:13 Nasal Cannula 0 08/19/24 18:03 08/19/24 17:12 Room Air Laboratory Results Laboratory Results WBC 6.15 K/ul (4.8-10.8) 08/19/24 17:30 RBC 4.48 M/uL (4.70-6.10) L 08/19/24 17:30 Hgb 14.1 g/dl (14.0-18.0) 08/19/24 17:30 POC Hgb 14.3 g/dl (14.0-18.0) 08/19/24 19:43 Hct 42.9 % (42.0-52.0) 08/19/24 17:30 POC Hct 42 % (42-52) 08/19/24 19:43 MCV 95.8 fL (80.0-100.0) 08/19/24 17:30 MCH 31.5 pg (25.0-34.0) 08/19/24 17:30 MCHC 32.9 g/dL (32.0-36.0) 08/19/24 17:30 RDW Std Deviation 59.9 fL (36.4-46.3) H 08/19/24 17:30 RDW Coeff of Junie 17.1 % (11.5-14.5) H 08/19/24 17:30 Plt Count 222 K/uL (130-400) 08/19/24 17:30 MPV 9.5 fL (9.4-12.4) 08/19/24 17:30 Immature Gran % (Auto) 0.7 % 08/19/24 17:30 Neut % (Auto) 94.7 % 08/19/24 17:30 Lymph % (Auto) 4.1 % 08/19/24 17:30 [place] % (Auto) 0.3 % 08/19/24 17:30 Eos % (Auto) 0.0 % 08/19/24 17:30 Baso % (Auto) 0.2 % 08/19/24 17:30 Neut # (Auto) 5.83 K/uL (1.40-6.50) 08/19/24 17:30 Lymph # (Auto) 0.25 K/uL (1.20-3.40) L 08/19/24 17:30 [place] # (Auto) 0.02 K/uL (0.11-0.59) L 08/19/24 17:30 Eos # (Auto) 0.00 K/uL (0.00-0.50) 08/19/24 17:30 Baso # (Auto) 0.01 K/uL (0.00-0.20) 08/19/24 17:30 Immature Gran # (Auto) 0.04 K/uL (0.01-0.20) 08/19/24 17:30 Ovalocytes 1+ 08/19/24 17:30 PT 30.3 Seconds (9.0-12.0) H 08/19/24 17:30 INR 3.1 (0.9-1.1) H 08/19/24 17:30 APTT 44 Seconds (21-31) H 08/19/24 17:30 PTT Ratio 1.6 08/19/24 17:30 POC pH 7.38 (7.35-7.45) 08/19/24 19:43 POC pCO2 34 mmHg (35-46) L 08/19/24 19:43 POC pO2 61 mmHg (80-95) L 08/19/24 19:43 POC HCO3 20 daisy/L (19-24) 08/19/24 19:43 POC Total CO2 21 mmol/L (24-31) L 08/19/24 19:43 POC Base Excess -5.0 daisy/L (-9-1.8) 08/19/24 19:43 POC ABG O2 Sat 91.0 % (90-95) 08/19/24 19:43 POC Sodium 138 mmol/L (135-144) 08/19/24 19:43 Sodium 138 mmol/L (136-145) 08/19/24 17:30 POC Potassium 4.3 mmol/L (3.3-5.0) 08/19/24 19:43 Potassium 4.1 mmol/L (3.5-5.1) 08/19/24 17:30 Chloride 102 mmol/L (98-107) 08/19/24 17:30 Carbon Dioxide 19 mmol/L (21-32) L 08/19/24 17:30 Anion Gap 17 (3-11) H 08/19/24 17:30 BUN 33 mg/dl (6-23) H 08/19/24 17:30 Creatinine 1.64 mg/dl (0.6-1.4) H 08/19/24 17:30 Est Cr Clr Drug Dosing 37.8 ml/min 08/19/24 17:30 eGFR 43.35 08/19/24 17:30 BUN/Creatinine Ratio 20.1 (10-20) H 08/19/24 17:30 Glucose 490 mg/dl (70-99(Fasting)) H* 08/19/24 17:30 POC Glucose 479 mg/dl (70-99) H* 08/19/24 17:28 Estimat Average Glucose 120 mg/dl 08/19/24 17:30 Hemoglobin A1c 5.8 % (4.5-5.6) H 08/19/24 17:30 Calcium 8.7 mg/dl (8.6-10.3) 08/19/24 17:30 Phosphorus 2.9 mg/dl (2.5-4.9) 08/19/24 17:30 Magnesium 1.1 mg/dl (1.7-2.4) L 08/19/24 17:30 Total Bilirubin 0.5 mg/dl (0.2-1.0) 08/19/24 17:30 AST 15 U/L (13-39) 08/19/24 17:30 ALT 14 U/L (7-52) 08/19/24 17:30 Alkaline Phosphatase 71 U/L (34-104) 08/19/24 17:30 Troponin I High Sens 96.0 pg/ml (0-20) H* D 08/19/24 19:07 Total Protein 7.3 gm/dl (6.0-8.3) 08/19/24 17:30 Albumin 4.4 gm/dl (3.4-5.0) 08/19/24 17:30 Globulin 2.9 gm/dl (2.5-4.0) 08/19/24 17:30 Albumin/Globulin Ratio 1.5 (0.9-2) 08/19/24 17:30 Adenovirus (PCR) Not Detected (NotDetected) 08/19/24 17:30 B. pertussis DNA (PCR) Not Detected (NotDetected) 08/19/24 17:30 B.parapertussis DNA PCR Not Detected (NotDetected) 08/19/24 17:30 C. pneumoniae DNA (PCR) Not Detected (NotDetected) 08/19/24 17:30 Coronavirus OC43 (PCR) Not Detected (NotDetected) 08/19/24 17:30 Coronavirus HKU1 (PCR) Not Detected (NotDetected) 08/19/24 17:30 Coronavirus 229E (PCR) Not Detected (NotDetected) 08/19/24 17:30 SARS-CoV-2 (PCR) Not Detected (NotDetected) 08/19/24 17:30 Coronavirus NL63 (PCR) Not Detected (NotDetected) 08/19/24 17:30 Human Metapneumovir PCR Not Detected (NotDetected) 08/19/24 17:30 Influenza A (H3) PCR DETECTED (NotDetected) A 08/19/24 17:30 Influenza Type B (PCR) Not Detected (NotDetected) 08/19/24 17:30 M. pneumoniae (PCR) Not Detected (NotDetected) 08/19/24 17:30 Parainfluenza 1 (PCR) Not Detected (NotDetected) 08/19/24 17:30 Parainfluenza 2 (PCR) Not Detected (NotDetected) 08/19/24 17:30 Parainfluenza 3 (PCR) Not Detected (NotDetected) 08/19/24 17:30 Parainfluenza 4 (PCR) Not Detected (NotDetected) 08/19/24 17:30 RSV (PCR) Not Detected (NotDetected) 08/19/24 17:30 Entero/Rhino (PCR) Not Detected (NotDetected) 08/19/24 17:30 Impressions Chest X-Ray 08/19/24 17:16 EXAM: Radiograph of the Chest 1 View INDICATION: Shortness of breath. TECHNIQUE: Frontal view of the chest. COMPARISON: No relevant prior studies available. FINDINGS: Lungs and pleural spaces: Moderate consolidation left lung base and small left pleural effusion noted. No pneumothorax. Heart: Shape and configuration within normal limits allowing for technique. Mediastinum: Normal contour. Bones/joints: No fracture, erosion or dislocation. Soft tissues: No abnormality noted. No radiopaque foreign body noted. Tubes, lines and devices: Prominent cardiac shadow. Right ventricular pacing lead intact. Upper abdomen: No abnormality noted. IMPRESSION: Moderate consolidation left lung base and small left pleural effusion noted. Consider pneumonia and mucous plugging. ACT 112: Negative or not required by law. Electronically signed by Ghada Gomes 08-19-2024 6:45 PM
[2024-08-19] MEDS: IPRATROPIUM BROMIDE NEB SOLN 0.02% 0.5MG/2.5ML VIAL NEB STA (20:49)
[2024-08-19] MEDS: LEVALBUTEROL 1.25 MG/3 ML NEB NEB STA (20:49)
[2024-08-19] MEDS: MAGNESIUM SULFATE / D5W 1 GM/100 ML BAG IV SCH (20:57)
[2024-08-19] MEDS: PLASMA-LYTE A 250 ML IV ONE (20:59)
[2024-08-19] MEDS ORDERED: INSULIN ASPART PER UNIT CHARGE SC SCH (21:00)
[2024-08-19] MEDS ORDERED: NITROGLYCERIN SL 0.4 MG/TAB TAB SL PRN (21:32)
[2024-08-19] MEDS: INSULIN REGULAR 250 UNITS in SODIUM CHLORIDE 0.9% 247.5 ML IV SCH (21:54)
[2024-08-19] MEDS: LANTUS PER UNIT CHARGE SQ STA (22:31)
[2024-08-19] MEDS: INSULIN ASPART PER UNIT CHARGE SC SCH (22:31)
[2024-08-19] MEDS: DOXYCYCLINE HYCLATE 100 MG in DEXTROSE 5% MINI-B 100 ML IV ONE (22:32)
[2024-08-19] MEDS: PHYTONADIONE 5 MG TAB PO STA (23:11)
[2024-08-19] MEDS: ZOLPIDEM TARTRATE 5 MG TAB PO PRN (23:11)
[2024-08-19] MEDS: clonazePAM 0.5 MG TAB PO PRN (23:13)
[2024-08-20 00:14] LABS: BUN Creatinine Ratio 22.3 (10-20); Calcium 8.6 mg/dl (8.6-10.3); Creatinine Clr Calc Pharmacy 41.7 ml/min; Potassium 4.1 mmol/L (3.5-5.1); Troponin I High Sensitivity 1224.5 pg/ml (0-20)
[2024-08-20] MEDS: cefTRIAXone SODIUM 2,000 MG/50 ML BAG IV SCH (00:40)
[2024-08-20] MEDS: METOPROLOL TARTRATE 1 MG/ML VIAL IV STA (00:50)
[2024-08-20] MEDS: LEVALBUTEROL 1.25 MG/3 ML NEB NEB SCH (00:56)
[2024-08-20] MEDS: IPRATROPIUM BROMIDE NEB SOLN 0.02% 0.5MG/2.5ML VIAL INH SCH (00:56)
[2024-08-20] MEDS: ALBUMIN 25% 25 GM/100 ML VIAL IV ONE (01:04)
[2024-08-20] MEDS: PLASMA-LYTE A 250 ML IV ONE (02:50)
[2024-08-20 04:20] LABS: Hematocrit (blood only) 35.7 % (42.0-52.0); Immature Granulocytes # (auto) 0.03 K/uL (0.01-0.20); Immature Granulocytes % (auto) 0.4 %; Lymphocytes # (auto) 0.63 K/uL (1.20-3.40); Lymphocytes % (auto) 8.2 %; Mean Corpuscular Hemoglobin 31.7 pg (25.0-34.0); Mean Corpuscular Hgb Conc 33.6 g/dL (32.0-36.0); Mean Corpuscular Volume 94.4 fL (80.0-100.0); Mean Platelet Volume 8.9 fL (9.4-12.4); Monocytes % (auto) 3.9 %; Neutrophils # (auto) 6.72 K/uL (1.40-6.50); Neutrophils % (auto) 87.5 %; Platelet Count 186 K/uL (130-400); RDW Coefficient of Variation 16.8 % (11.5-14.5); RDW Standard Deviation 57.8 fL (36.4-46.3); Red Blood Count 3.78 M/uL (4.70-6.10); White Blood Count 7.68 K/ul (4.8-10.8)
[2024-08-20 04:41] LABS: BUN Creatinine Ratio 24.6 (10-20); Calcium 8.4 mg/dl (8.6-10.3); Creatinine Clr Calc Pharmacy 47.5 ml/min; Magnesium 2.2 mg/dl (1.7-2.4); Troponin I High Sensitivity 1396.5 pg/ml (0-20)
[2024-08-20 04:47] LABS: INR 2.9 (0.9-1.1); Prothrombin Time 28.6 Seconds (9.0-12.0)
[2024-08-20] MEDS: LANTUS PER UNIT CHARGE SQ SCH (06:02)
[2024-08-20] MEDS: INSULIN ASPART PER UNIT CHARGE SC SCH (06:03)
[2024-08-20] MEDS: DOXYCYCLINE HYCLATE 100 MG CAP PO SCH (08:51)
[2024-08-20] MEDS: SERTRALINE HCL 50 MG TABLET PO SCH (08:51)
[2024-08-20] MEDS: PANTOprazole 40 MG TAB PO SCH (08:51)
[2024-08-20] MEDS: oxyBUTYnin chloride 5 MG TAB PO SCH (08:51)
[2024-08-20] MEDS: ISOSORBIDE MONO EXTENDED REL 60 MG TABCR PO SCH (08:51)
[2024-08-20] MEDS: predniSONE 20 MG TAB PO SCH (08:51)
[2024-08-20] MEDS: PANCREAZE (LIPASE 4,200U) CAP PO SCH (08:52)
[2024-08-20] MEDS ORDERED: LANTUS PER UNIT CHARGE SQ SCH (09:00)
[2024-08-20] MEDS ORDERED: OSELTAMIVIR PHOSPHATE 75 MG CAP PO SCH (09:00)
[2024-08-20] MEDS ORDERED: SODIUM CHLORIDE 0.65% NA SOLN 45 ML (OCEAN) PRN (09:16)
--- NOTE | 2024-08-20 09:48 | Electrocardiogram Report ---
Test Reason : Blood Pressure : */* mmHG Vent. Rate : 124 BPM Atrial Rate : 124 BPM P-R Int : 176 ms QRS Dur : 86 ms QT Int : 290 ms P-R-T Axes : -24 9 98 degrees QTcB Int : 416 ms Sinus tachycardia with Fusion complexes Low voltage QRS Possible Inferior infarct (cited on or before 28-Sep-2015) Cannot rule out Anterior infarct (cited on or before 28-Sep-2015) Abnormal ECG When compared with ECG of 30-Sep-2015 09:34, Fusion complexes are now Present Questionable change in initial forces of Inferior leads Confirmed by Quentin Zambrano ([id number]) on 08/20/2024 9:47:37 AM Referred By: Confirmed By: Quentin Zambrano
[2024-08-20] MEDS: OSELTAMIVIR PHOSPHATE SUSP 30 MG/5 ML UDP PO SCH (10:23)
--- NOTE | 2024-08-20 10:46 | Hospitalist Progress Note ---
Date of Service August 20, 2024 Assessment & Plan (1) Severe sepsis with acute organ dysfunction: (2) Acute hypoxemic respiratory failure: (3) Influenza A with pneumonia: (4) COPD exacerbation: (5) Hypomagnesemia: (6) Diabetes mellitus, type 2: (7) ICD (implantable cardioverter-defibrillator) in place: (8) Chronic obstructive pulmonary disease: (9) Sleep apnea: (10) CAD (coronary artery disease): (11) Demand ischemia of myocardium: (12) On anticoagulant therapy: (13) Chronic heart failure with reduced ejection fraction (HFrEF, <= 40%): (14) Subconjunctival hemorrhage of right eye: Plan Patient with severe sepsis due to influenza pneumonia with evidence of demand ischemia and respiratory failure. Slowly improving. Continues to have tachycardia. Requires hospital level care, high risk for further decompensation with his comorbidities and severe influenza infection. Continue oxygen support Continue Tamiflu Low suspicion for secondary bacterial pneumonia with low procalcitonin, normal WBCs, normal lactic acid. Can narrow antibiotics Continue supportive care for influenza, mucolytics, antitussives Continue neb treatments and steroids for COPD exacerbation Echocardiogram pending Admission and Anticipated Discharge Date Admission Date: August 19, 2024 Subjective Patient states that his breathing does feel improved. Still with headache, scratchy throat, little bit of epistaxis due to dry nares and coughing Physical Exam Physical Exam: Constitutional: Alert, mildly ill in appearance, no acute distress HEENT: Mucous membranes moist. Right subconjunctival hemorrhage Lungs: Decreased breath sounds, prolonged expiratory phase, diffuse scattered wheezes on expiration CV: S1-S2, regular, tachycardic Abdomen: Soft, nontender, nondistended Extremities: No significant edema Neuro: No focal deficits Psych: Cooperative, normal mood Results & Data Results & Data Vital Signs (Past 12 Hours) Vital Signs Temp Pulse Pulse Pulse Resp BP BP 08/20/24 07:37 36.8 C 115 H 24 110/72 08/20/24 07:15 107 H 20 08/20/24 04:10 36.9 C 98 H 20 128/62 08/20/24 00:56 101 H 24 08/20/24 00:56 100 H 24 08/20/24 00:50 97 H 135/62 08/20/24 00:48 97 H 135/62 08/20/24 00:27 96 H 145/62 H 08/19/24 23:59 110 H 08/19/24 23:30 36.7 C 112 H 18 162/78 H 08/19/24 23:12 115 H 138/90 Pulse Ox O2 Del Method O2 Flow Rate 08/20/24 07:37 94 Nasal Cannula 3 08/20/24 07:15 90 Room Air 08/20/24 04:10 90 Nasal Cannula 3 08/20/24 00:56 91 CPAP 08/20/24 00:56 91 08/20/24 00:50 08/20/24 00:48 08/20/24 00:27 08/19/24 23:59 08/19/24 23:30 91 Nasal Cannula 2 08/19/24 23:12 Diagnostic Findings Reviewed imaging, laboratory and diagnostic studies. Pertinent findings as below. WBCs 7.8 Hemoglobin 12.0 INR 2.9 Electrolytes stable Glucoses reviewed, elevated due to steroids Lactate 1.8 Magnesium 2.2, improved Troponins reviewed Procalcitonin 0.06 Personally reviewed EKG, sinus tachycardia
[2024-08-20] MEDS ORDERED: NON-FORMULARY MEDICATION (Cranberry Fruit [Cranberry] 450 mg Tablet) PO SCH (11:30)
[2024-08-20] MEDS: ACETAMINOPHEN 325 MG TAB PO PRN (14:32)
[2024-08-20] MEDS ORDERED: HYDROcodone/HOMATROPINE SYRUP 5MG/1.5MG 5ML UDP PO PRN (15:49)
[2024-08-20] MEDS: WARFARIN SOD 2 MG TAB PO SCH (17:38)
[2024-08-20] MEDS: FLUTICASONE PROPIONATE NA SPR 16 GM BTL NAE SCH (17:39)
[2024-08-20] MEDS ORDERED: CYANOCOBALAMIN (B-12) 2,500 MCG TABLET PO SCH (21:00)
[2024-08-20] MEDS: ATORVASTATIN 40 MG TAB PO SCH (21:44)
[2024-08-20] MEDS: CYANOCOBALAMIN (B-12) 500 MCG TABLET PO SCH (21:45)
[2024-08-20] MEDS: CHOLECALCIFEROL 25 MCG (1000 UNITS) TAB PO SCH (21:45)
[2024-08-20] MEDS: guaiFENesin 600 MG TABCR PO SCH (21:46)
[2024-08-20] MEDS: METOPROLOL SUCC 25MG EXT REL TAB PO SCH (21:50)
[2024-08-21 06:52] LABS: Hematocrit (blood only) 35.7 % (42.0-52.0); Hemoglobin 11.9 g/dl (14.0-18.0); Mean Corpuscular Hemoglobin 31.9 pg (25.0-34.0); Mean Corpuscular Hgb Conc 33.3 g/dL (32.0-36.0); Mean Corpuscular Volume 95.7 fL (80.0-100.0); Mean Platelet Volume 9.6 fL (9.4-12.4); Platelet Count 183 K/uL (130-400); RDW Coefficient of Variation 16.7 % (11.5-14.5); RDW Standard Deviation 58.7 fL (36.4-46.3); Red Blood Count 3.73 M/uL (4.70-6.10)
[2024-08-21 07:15] LABS: BUN Creatinine Ratio 29.3 (10-20); Calcium 8.9 mg/dl (8.6-10.3); Creatinine Clr Calc Pharmacy 50.1 ml/min; Potassium 4.2 mmol/L (3.5-5.1)
[2024-08-21 07:34] LABS: Troponin I High Sensitivity 2174.1 pg/ml (0-20)
[2024-08-21 07:39] LABS: INR 1.5 (0.9-1.1); Prothrombin Time 15.6 Seconds (9.0-12.0)
[2024-08-21] MEDS: predniSONE 20 MG TAB PO SCH (08:04)
[2024-08-21] MEDS: FERROUS SULFATE 325 MG TAB PO SCH (08:05)
--- NOTE | 2024-08-21 08:51 | Cardiology Consultation ---
Date of Consultation August 21, 2024 Assessment & Plan (1) Influenza A with pneumonia: (2) Demand ischemia of myocardium: (3) Chronic heart failure with reduced ejection fraction (HFrEF, <= 40%): (4) Subconjunctival hemorrhage of right eye: Plan Assessment: 74 year old medically complex male admitted with acute hypoxia s/t influenza A and suspected pneumonia Cardiology requested for troponin elevation. Evaluation and recommendations. Plan: 1. Influenza A with pneumonia -Acutely ill appearing, but hemodynamically stable at this time. -Continued management of flu and pneumonia per primary team. Tamiflu, doxycycline, prednisone, and nebulizer treatments. 2. Demand ischemia of myocardium -Patient with known severe coronary disease, not amendable to PCI or intervention with ischemic cardiomyopathy -EKG unchanged. No acute St-T wave changes. -Echocardiogram obtained which shows stable reduced LVEF and no new wall motion abnormalities. Compared with most recent OP study and is unchanged. -Elevated troponin secondary to hypoxia (demand ischemia) in the setting of an acute infectious resp. process. -Continue Atorvastatin, Imdur, and Toprol xl as per current regimen 3. Chronic HFrEF -Patient is euvolemic on exam. -Chest xray with no suggestion of acute cardiac process -Strict I&O and daily weights. Renal function continues to trend back to baseline. will discuss with Dr. Klein, but would recommend restarting his home regimen of Torsemide in the AM. Patient is very sensitive to fluid shifts. Spironolactone as per home regimen on PRN basis. 4. Subconjunctival hemorrhage of right eye -in the setting of harsh persistent cough. -Continue Warfarin as per current regimen with close monitoring of INR Case has been discussed with Dr. Klein. Further recommendations regarding plan of care as per his assessment. I spent a total of 40 minutes on the date of service in preparation, delivery, documentation of the care provided to the patient excluding any time spent in the performance of separately billed services. BARBARA [facility] Cardiology [facility] Supervising Physician Co-Signing Physician Notes I have personally performed a history and physical examination on the patient. I have reviewed the advance practitioner's documentation, and I agree with, and take responsibility for the plan of care. 74-year-old male admitted due to acute hypoxemic respiratory failure due to influenza A pneumonia. Cardiology consultation requested due to elevated troponin. Patient without anginal symptoms. Echocardiogram with stable findings compared to previous. He does not display signs/symptoms of volume overload currently. INR therapeutic on admission, therefore, IV heparin was not initiated. Clopidogrel on hold since admission. INR today subtherapeutic. Chronically anticoagulated with warfarin due to history of posterior embolic stroke. Clinical status improved since admission, however, continues to require s upplemental oxygen. Denies anginal symptoms prior to admission. No orthopnea, PND, or lower extremity edema. Telemetry reveals sinus rhythm in the 70s and 80s. Recommendations: * Restart clopidogrel 75 mg daily * No indication for IV heparin at this time * Dose warfarin for goal INR 2.0-3.0 * Continue Atorvastatin, Imdur, and Toprol xl * Restart torsemide and spironolactone in AM pending review of labs * Low-dose Entresto remain on hold due to borderline hypotension I spent a total of 40 minutes on the date of service in preparation, delivery, and documentation of the care provided to this patient, excluding any time spent in the performance of separately billed services. Bertrand Klein DO, [facility] History of Present Illness Reason for Consultation: Demand ischemia vs ACS [facility] Att[facility]ician: Lupillo Mcwilliams DO History of Present Illness HPI: Patient is a 74 year old male with complex PMHx as stated below that presen fransico to the ER with known recent diagnosis of influenza A, shortness of breath, chest tightness, and a cough. Patient had initially presented to [facility] on 08/19/2024 with the same symptoms. He tested positive for Influenza A and was recommended for admission due to hypoxia. Patient accepted admission, but when it was time to move him up to his inpatient room, he refused and despite reiteration of his condition by the provider, chose to sign himself out AMA. Record obtained from ER-Admission note in EPIC dated 08/19/2024. Upon seeing patient today, he is resting comfortably in bed without cardiac complaint. Reports resolution of chest tightness, which he feels the nebulizers and use of incentive spirometer have helped. Reports some improvement in breathing. Currently with O2 sats in the low to mid 90's on 2LPM. Cardiac history: 1. CAD -Positive nuclear stress test 02/06/2023; CATH 02/2023 unchanged, no intervention -Negative stress test 2019 -PCI for recurrent ISR 2018 -BMS to LAD for ISR 2014 -PCI LAD 2001 -PCI to LAD 1994 2. ICM -EF 25-29% 11/2023 -EF 35-39% 2022 -EF 30-35% 2021 -EF 40% 2018 3. HFrEF 4. Single Chamber ICD 2015 5. HLD 6. 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 HTN 8. DM 2 9. Hypomagnesemia 10. LURDES on CPAP 11. Depression 12. CKD II -chronic indwelling de EKG on admission ST, prior cited Anterior and inferior infarct. Rate 124bpm Echocardiogram obtained 08/20/24 and unchanged when compared with patient's prior study at [facility] Chest Xray: IMPRESSION: Moderate consolidation left lung base and small left pleural effusion noted. Consider pneumonia and mucous plugging. Troponin elevation with peak Trop of 2925.4 and trending down. -750cc fluid balance Allergies Allergy/AdvReac Type Severity Reaction Status Date / Time venlafaxine Allergy Intermediate abnormal Verified 08/19/24 19:24 sexual function azithromycin Allergy Mild Hives Verified 08/19/24 19:24 [From Zithromax Z-Konrad] levofloxacin Allergy Unknown unknown Verified 08/19/24 19:24 Penicillins Allergy Unknown rash Verified 08/19/24 19:24 phenylpropanolamine Allergy Unknown RASH Verified 08/19/24 19:24 phenyltoloxamine Allergy Unknown RASH Verified 08/19/24 19:24 adhesive tape AdvReac Unknown pulls off Verified 08/19/24 19:24 skin sinubid Allergy Unknown Hives Uncoded 08/19/24 19:24 mirtazapine AdvReac Severe dysphoria Uncoded 08/19/24 19:24 Home Medications Medication Instructions Recorded Confirmed Type albuterol sulfate 90 mcg/actuation 2 - 4 puff inhalation Q6H PRN 08/15/18 08/19/24 History aerosol inhaler (Ventolin HFA) Shortness Of Breath ascorbic acid (vitamin C) 500 mg 1 cap PO 3XWK 08/15/18 08/19/24 History capsule atorvastatin 80 mg tablet 80 mg PO HS 08/15/18 08/19/24 History cholecalciferol (vitamin D3) 25 1,000 unit PO QPM 08/15/18 08/19/24 History mcg (1,000 unit) capsule (Vitamin D3) clonazepam 0.5 mg tablet 0.25 mg PO DAILY PRN Anxiety 08/15/18 08/19/24 History ferrous sulfate 325 mg (65 mg 325 mg PO 3XWK 08/15/18 08/19/24 History iron) tablet nitroglycerin 0.4 mg sublingual 1 dose sublingual UD PRN Angina 08/15/18 08/19/24 History tablet pantoprazole 40 mg tablet,delayed 40 mg PO QAM 08/15/18 08/19/24 History release spironolactone 25 mg tablet 25 mg PO QAM PRN Shortness Of 08/15/18 08/19/24 History Breath Or Wheezing cranberry fruit 450 mg tablet 450 mg PO QDL 10/31/22 08/19/24 History (cranberry) fluticasone propionate 50 1 spray intranasal QDD 10/31/22 08/19/24 History mcg/actuation nasal spray,suspension insulin aspart U-100 100 unit/mL 1 sliding scale dose subcut 10/31/22 08/19/24 History subcutaneous solution (Novolog USEASDIRECTD U-100 Insulin aspart) insulin glargine 100 unit/mL (3 32 unit subcut QDD 10/31/22 08/19/24 History mL) subcutaneous pen isosorbide mononitrate 60 mg 60 mg PO QAM 10/31/22 08/19/24 History tablet,extended release 24 hr [id number]-[id number] 1 cap PO DAILY 10/31/22 08/19/24 History 3,000-9,500-15,000 unit capsule, delayed rel (Creon) sertraline 50 mg tablet 50 mg PO QAM 10/31/22 08/19/24 History warfarin 2 mg tablet 2 mg PO UD 10/31/22 08/19/24 History torsemide 20 mg tablet 60 mg PO QAM 12/24/22 08/19/24 History oxybutynin chloride 5 mg tablet 5 mg PO TID #90 tabs 04/07/24 08/19/24 Rx cyanocobalamin (vitamin B-12) 500 500 mcg PO HS 08/19/24 08/19/24 History mcg tablet magnesium chloride 71.5 mg 71.5 mg PO BID 08/19/24 08/19/24 History (magnesium chloride) tablet,delayed release (Slow-Mag) metoprolol succinate 25 mg 25 mg PO DAILY 08/19/24 08/19/24 History tablet,extended release 24 hr semaglutide 0.25 mg or 0.5 mg (2 0.5 mg subcut WK 08/19/24 08/19/24 History mg/3 mL) subcutaneous pen injector (Ozempic) zolpidem 5 mg tablet 5 mg PO HS PRN Sleep 08/19/24 08/19/24 History Patient History Medical History CAD (coronary artery disease) HFrEF (heart failure with reduced ejection fraction) Posterior cerebral artery syndrome Carotid artery stenosis Hx MRSA infection 2014 unknown source-[facility] Hx of sepsis hospitalized 09/10/22 [facility] Avalos- w/ kidney infection- multiple kidney infections in the past few months De catheter in place Pacemaker [employer] 2015- last checked 09/2022 GERD (gastroesophageal reflux disease) IBS (irritable bowel syndrome) Diabetes mellitus, type 2 On anticoagulant therapy on warfarin Anxiety Depression Stroke 08/28/21- right sided weakness and hip weakness 2012--short term memory loss, "left/right eye top right corner can not see out of"--d/t clot, reason for warfarin Hypertension Hyperlipidemia ICD (implantable cardioverter-defibrillator) in place 03/2016 meditronic @ [facility]---follows with Dr. Flory Avalos Myocardial Infarction 1994 and 2001 Sleep apnea cpap Chronic obstructive pulmonary disease Asthma inhalers daily and prn Surgical History History of prostate surgery laser procedure History of total left hip replacement History of colonoscopy History of esophagogastroduodenoscopy (EGD) History of cholecystectomy History of tooth extraction all teeth Hx of parathyroidectomy partial History of bilateral cataract extraction History of angioplasty 1994 @ [place] History of heart artery stent x4--10/2001, 11/2007, 04/2015; 2019 [facility]IK[facility] Marie History of cardiac cath 2001 @ /2007 X 1 STENT @ [place]/2015 X 1 STENT @ [facility]; 2018 [facility] [place] X 2 Family History Aunt Family history of diabetes mellitus Other No family history of adverse response to anesthesia Social History Smoking Status: Former smoker Tobacco Type: Cigarettes Cigarettes Per Day: QUIT 01/1995; Smoking End Date: 01-25-1995; Second Hand Exposure: No; Do You Dip or Chew Tobacco: No; Tobacco Cessation Education Requested by Patient: No Hx Alcohol Use: No Hx Substance Use: No Preferred Language: Filipino Communication Ability: Effective Technical Services Consultant Required: No Beliefs That Will Affect Care: None Current Living Situation: Spouse Other Information That Helps Us Care for You: No Feels Safe at Home: Yes Safety Concerns: Feels Safe At This Time Assistive Devices: CPAP Review of Systems Review of Systems: All systems reviewed & are unremarkable except as noted in HPI & below Physical Exam Constitutional: well developed, well nourished and + ill appearing; no acute d istress Eyes: PERRL, conjunctivae normal, anicteric sclerae (right eye with prior trauma and unequal pupil. ) + conjunctival abnormality (right eye. known) Neck: normal visual inspection and trachea midline Respiratory: normal respiratory effort, + cough and able to speak in complete sentences; no respiratory distress and no labored breathing Auscultation: + diminished lung sounds (bilateral bases ) and + wheezes; no crackles and no rales Cardiovascular: Rate/Rhythm: regular rate and regular rhythm Heart Sounds: normal S1 and normal S2 Vessels: dorsalis pedis pulses present; no JVD Extremities: no edema Skin: no rashes, warm and dry Psychiatric: A+Ox3, euthymic affect Results & Data Vital Signs (Past 12 Hours) Vital Signs Temp Pulse Pulse Resp BP BP Pulse Ox 08/21/24 07:51 08/21/24 07:45 36.6 C 73 18 137/65 94 08/21/24 07:34 86 15 92 08/21/24 07:11 78 08/21/24 03:29 36.5 C 96 H 20 158/62 H 94 08/20/24 23:41 36.5 C 95 H 20 152/64 H 94 08/20/24 22:56 08/20/24 21:50 105 H O2 Del Method O2 Flow Rate 08/21/24 07:51 Nasal Cannula 2 08/21/24 07:45 Nasal Cannula 2 08/21/24 07:34 Nasal Cannula 2 08/21/24 07:11 08/21/24 03:29 Nasal Cannula 2 08/20/24 23:41 Nasal Cannula 2 08/20/24 22:56 Nasal Cannula 2 08/20/24 21:50 Laboratory Results Cardiac Enzymes 08/20/24 08/20/24 08/21/24 Range/Units 08:56 15:36 06:28 Troponin I High Sens 1794.7 H* D 2925.4 H* D 2174.1 H* D (0-20) pg/ml Coagulation 08/21/24 Range/Units 06:28 PT 15.6 H (9.0-12.0) Seconds CBC 08/21/24 Range/Units 06:28 WBC 8.30 (4.8-10.8) K/ul RBC 3.73 L (4.70-6.10) M/uL Hgb 11.9 L (14.0-18.0) g/dl Hct 35.7 L (42.0-52.0) % Plt Count 183 (130-400) K/uL Comprehensive Metabolic Panel 08/21/24 Range/Units 06:28 Sodium 140 (136-145) mmol/L Potassium 4.2 (3.5-5.1) mmol/L Chloride 108 H (98-107) mmol/L Carbon Dioxide 27 (21-32) mmol/L BUN 36 H (6-23) mg/dl Creatinine 1.23 (0.6-1.4) mg/dl Glucose 188 H (70-99(Fasting)) mg/dl Calcium 8.9 (8.6-10.3) mg/dl Intake and Output 08/20/24 08/21/24 08/21/24 22:59 06:59 14:59 Intake Total 300 / 1150 120 / 1150 Output Total 450 / 1650 600 / 1650 Balance -150 / -500 -480 / -500 Intake: Oral 300 / 900 120 / 900 Output: Urine Amount (Catheter) 450 / 1650 600 / 1650 Suprapubic 450 / 1650 600 / 1650 Other: Weight 82 kg Weight Measurement Method Built in [facility] Diagnostic Findings Echo 08/20/2024 LVEF 30-35% large sized apical, septal, anteroseptal, anterior and inferior wall motion abnormality with hypokinesis to akinesis to segments. RV normal size RV systolic function is normal Left atrium moderatly dilated Mild AI, Mild to moderate MR Mild TR PASP 43mmHG ECHO 12/13/2023 EPIC The qualitative LV ejection fraction is 25-29% (severely reduced). There is a large sized apical, septal, anteroseptal, and inferior wall motion abnormality with hypokinesis to akinesis of the segments. The left ventricular cavity is moderately dilated (LVED volume 90-100 ml/m^2). The LV wall thickness is mildly increased (concentric). Swirling noted in apex, but no definite LV thrombus. The left ventricular diastolic function is mildly abnormal (grade I). The right ventricular cavity size is qualitatively normal. Image resolution does not allow dimension measurements. The right ventricular systolic function is qualitatively normal. There is a pacemaker wire in the right ventricle. Mild aortic valve regurgitation is present. There is mild mitral annular calcification. Mild mitral regurgitation is present. There is mild pulmonary regurgitation. The proximal ascending thoracic aorta is mildly enlarged. The aortic root is borderline enlarged. Indeterminate IVC size and collapsability. Right atrial pressure estimated at 8 mmHg. Trivial tricuspid regurgitation is present. The signal is inadequate to calculate pulmonary artery systolic pressure. When compared to prior study in 09/2022 the EF has declined further.
[2024-08-21] MEDS: BENZONATATE 100 MG CAPSULE PO PRN (09:06)
--- NOTE | 2024-08-21 11:22 | Hospitalist Progress Note ---
Date of Service August 21, 2024 Assessment & Plan (1) Severe sepsis with acute organ dysfunction: (2) Acute hypoxemic respiratory failure: (3) Influenza A with pneumonia: (4) Demand ischemia of myocardium: (5) COPD exacerbation: (6) Hypomagnesemia: (7) Diabetes mellitus, type 2: (8) ICD (implantable cardioverter-defibrillator) in place: (9) Chronic obstructive pulmonary disease: (10) Sleep apnea: (11) CAD (coronary artery disease): (12) On anticoagulant therapy: (13) Chronic heart failure with reduced ejection fraction (HFrEF, <= 40%): (14) Subconjunctival hemorrhage of right eye: Plan Patient with acute influenza pneumonia and demand ischemia associated with this. Continue Tamiflu Continue to titrate oxygen as able Continue nebulizer treatments and prednisone for exacerbation of COPD in the setting of influenza pneumonia Cardiology consult for significantly elevated troponin, again suspect demand ischemia in setting of infection, however, patient with known CAD and ischemic cardiomyopathy. Continue to monitor glucose, cover with's insulin short acting. Anticipate glucose will improve when completes course of prednisone Dose warfarin daily, continue to monitor INR Attempted to contact patient's , no answer, no identifiable voicemail message. Admission and Anticipated Discharge Date Admission Date: August 19, 2024 Subjective Patient sitting up on edge of bed, ate a good breakfast. Definitely feels as though his breathing has improved but still little tightness in the chest with deep inspiration. Physical Exam Physical Exam: Constitutional: Alert, nontoxic in appearance HEENT: Mucous membranes moist. Lungs: Decreased breath sounds, improved airflow, improved wheezing CV: S1-S2, regular Abdomen: Soft, nontender, nondistended Extremities: No significant edema Neuro: No focal deficits Psych: Cooperative, normal mood Results & Data Results & Data Vital Signs (Past 12 Hours) Vital Signs Temp Pulse Pulse Resp BP BP Pulse Ox 08/21/24 07:51 08/21/24 07:45 36.6 C 73 18 137/65 94 08/21/24 07:34 86 15 92 08/21/24 07:11 78 08/21/24 03:29 36.5 C 96 H 20 158/62 H 94 08/20/24 23:41 36.5 C 95 H 20 152/64 H 94 O2 Del Method O2 Flow Rate 08/21/24 07:51 Nasal Cannula 2 08/21/24 07:45 Nasal Cannula 2 08/21/24 07:34 Nasal Cannula 2 08/21/24 07:11 08/21/24 03:29 Nasal Cannula 2 08/20/24 23:41 Nasal Cannula 2 Diagnostic Findings Reviewed imaging, laboratory and diagnostic studies. Pertinent findings as below. Reviewed echocardiogram, ejection fraction 30 to 35%, no significant changes from previous INR 1.5, significant decrease from yesterday Troponin 2174, trending downward now Glucoses reviewed, slightly elevated due to steroids Blood cultures no growth
[2024-08-21] MEDS: CLOPIDOGREL BISULFATE 75 MG TAB PO SCH (14:57)
[2024-08-21] MEDS: WARFARIN SOD 3 MG TAB PO SCH (15:00)
[2024-08-22 07:11] LABS: INR 1.4 (0.9-1.1); Prothrombin Time 14.7 Seconds (9.0-12.0)
--- NOTE | 2024-08-22 07:48 | Cardiology Progress Note ---
Date of Service August 22, 2024 Assessment & Plan (1) Influenza A with pneumonia: (2) Demand ischemia of myocardium: (3) Chronic heart failure with reduced ejection fraction (HFrEF, <= 40%): (4) Subconjunctival hemorrhage of right eye: Plan Assessment: 74 year old medically complex male admitted with acute hypoxia s/t influenza A and suspected pneumonia Cardiology requested for troponin elevation. Evaluation and recommendations. Plan: 1. Influenza A with pneumonia -Acutely ill appearing, but hemodynamically stable at this time. -Continued management of flu and pneumonia per primary team. Tamiflu, doxycycline, prednisone, and nebulizer treatments. 2. Demand ischemia of myocardium -Patient with known severe coronary disease, not amendable to PCI or intervention with ischemic cardiomyopathy -EKG unchanged. No acute St-T wave changes. -Echocardiogram obtained which shows stable reduced LVEF and no new wall motion abnormalities. Compared with most recent OP study and is unchanged. -Elevated troponin secondary to hypoxia (demand ischemia) in the setting of an acute infectious resp. process. -Continue Atorvastatin, Imdur, and Toprol xl as per current regimen 3. Chronic HFrEF -Patient is euvolemic on exam. -Chest xray with no suggestion of acute cardiac process -Strict I&O and daily weights. Renal function continues to trend back to baseline. will discuss with Dr. Klein, but would recommend restarting his home regimen of Torsemide in the AM. Patient is very sensitive to fluid shifts. Spironolactone as per home regimen on PRN basis. 4. Subconjunctival hemorrhage of right eye -in the setting of harsh persistent cough. -Continue Warfarin as per current regimen with close monitoring of INR 08/22/2024: -Patient is doing well from a cardiac perspective. -Respiratory status continues to improve. Continued management of acute infectious process by primary team. Wean O2 as appropriate. Encourage patient to be OOB in a chair today -BP well controlled. -Continue GDMT for known severe coronary disease including Atorvastatin, Imdur, Toprol xl, and Plavix -Continue Torsemide -Continue Warfarin -Cardiology will sign off. Please reach out with any new acute questions or concerns. Case has been discussed with Dr. Klein. Further recommendations regarding plan of care as per his assessment. I spent a total of 30 minutes on the date of service in preparation, delivery, documentation of the care provided to the patient excluding any time spent in the performance of separately billed services. [facility] Admission and Anticipated Discharge Date Admission Date: August 19, 2024 Supervising Physician Co-Signing Physician Notes I have personally performed a history and physical examination on the patient. I have reviewed the advance practitioner's documentation, and I agree with, and take responsibility for the plan of care. 74-year-old male admitted due to acute hypoxemic respiratory failure due to influenza A pneumonia. Cardiology consultation requested due to elevated tro ponin. Patient without anginal symptoms. Echocardiogram with stable findings compared to previous. He does not display signs/symptoms of volume overload currently. INR subtherapeutic over the past 2 days. Clopidogrel restarted 08/21/2024. Chronically anticoagulated with warfarin due to history of posterior embolic stroke. Clinical status improved since admission, however, continues to require supplemental oxygen. Denies anginal symptoms prior to admission. No orthopnea, PND, or lower extremity edema. Telemetry reveals sinus rhythm in the 70s and 80s. Recommendations: * Continue clopidogrel 75 mg daily, Aspirin discontinued * Agree with BID lovenox until INR therapeutic * Dose warfarin for goal INR 2.0-3.0 * Continue Atorvastatin, Imdur, and Toprol xl * Restart torsemide and spironolactone * Consider restarting low-dose Entresto at discharge pending ongoing BP assessment * Cardiology will sign off, please call with additional concerns/questions. I spent a total of 30 minutes on the date of service in preparation, delivery, and documentation of the care provided to this patient, excluding any time spent in the performance of separately billed services. Bertrand Klein DO, [facility] Subjective 08/22/2024: Patient seen and examined in follow up today. Feeling well from a cardiac perspective. No chest pain, pressure or palpitations, no edema. Patient states that his breathing continues to improve. He is currently saturating well on 2LPM. Patient does not wear O2 at home. Labs, vitals, diagnostics, telemetry and documentation reviewed. Telemetry reviewed showing SR with occasional PVC's rates 50's-80's. No acute events overnight. INR subtherapeutic 1.4 Review of Systems Review of Systems: All systems reviewed & are unremarkable except as noted in HPI & below Physical Exam Constitutional: well developed and well nourished; no acute distress Eyes: PERRL, conjunctivae normal, anicteric sclerae (right eye with prior trauma and unequal pupil. ) + conjunctival abnormality (right eye. known) Neck: normal visual inspection and trachea midline Respiratory: normal respiratory effort, + cough and able to speak in complete sentences; no respiratory distress and no labored breathing Auscultation: + diminished lung sounds (bilateral bases ) and + wheezes; no crackles and no rales Cardiovascular: Rate/Rhythm: regular rate and regular rhythm Heart Sounds: normal S1 and normal S2 Vessels: dorsalis pedis pulses present; no JVD Extremities: no edema Skin: no rashes, warm and dry Psychiatric: A+Ox3, euthymic affect Results & Data Vital Signs (Past 12 Hours) Vital Signs Temp Pulse Pulse Resp BP BP Pulse Ox 08/22/24 07:22 75 18 94 08/22/24 03:40 36.5 C 79 16 125/64 95 08/22/24 00:43 86 18 91 08/21/24 23:26 36.8 C 89 16 144/72 H 93 08/21/24 22:00 88 08/21/24 20:10 08/21/24 20:07 91 H 17 93 08/21/24 20:03 37.1 C 91 H 18 137/75 93 O2 Del Method O2 Flow Rate 08/22/24 07:22 Nasal Cannula 2 08/22/24 03:40 Nasal Cannula 2 08/22/24 00:43 Nasal Cannula 2 08/21/24 23:26 Nasal Cannula 2 08/21/24 22:00 08/21/24 20:10 Nasal Cannula 2 08/21/24 20:07 Nasal Cannula 2 08/21/24 20:03 Room Air Laboratory Results Coagulation 08/22/24 Range/Units 06:10 PT 14.7 H (9.0-12.0) Seconds Intake and Output 08/21/24 08/22/24 08/22/24 22:59 06:59 14:59 Intake Total 840 / 1090 250 / 1090 Output Total 850 / 1400 550 / 1400 Balance -10 / -310 -300 / -310 Intake: Oral 840 / 1090 250 / 1090 Output: Urine Amount (Catheter) 850 / 1400 550 / 1400 Suprapubic 850 / 1400 550 / 1400 Other: Weight 83.9 kg
[2024-08-22] MEDS: TORSEMIDE 20 MG TAB PO SCH (08:52)
--- NOTE | 2024-08-22 10:07 | Hospitalist Progress Note ---
Date of Service August 22, 2024 Assessment & Plan (1) Severe sepsis with acute organ dysfunction: (2) Acute hypoxemic respiratory failure: (3) Influenza A with pneumonia: (4) Demand ischemia of myocardium: (5) COPD exacerbation: (6) Hypomagnesemia: (7) Diabetes mellitus, type 2: (8) ICD (implantable cardioverter-defibrillator) in place: (9) Chronic obstructive pulmonary disease: (10) Sleep apnea: (11) CAD (coronary artery disease): (12) On anticoagulant therapy: (13) Chronic heart failure with reduced ejection fraction (HFrEF, <= 40%): (14) Subconjunctival hemorrhage of right eye: Plan Patient presented with acute sepsis with organ dysfunction due to severe influenza pneumonia. Patient is steadily improving. Patient still requiring some oxygen, continue to attempt to titrate off Complete course of Tamiflu Continue prednisone and neb treatments as needed Patient did receive a 2.5 mg of vitamin K in the ED for very mildly elevated INR, this explains why patient's INR is now subtherapeutic. Start Lovenox for coverage while warfarin dosing increased Continue to monitor INR May need 2 step pulse oximetry tomorrow to determine if he needs home oxygen, hopefully discharge home with or without oxygen tomorrow if he continues to improve. Admission and Anticipated Discharge Date Admission Date: August 19, 2024 Subjective Patient continues to feel better each day. Nursing reports he did desaturate with activity. Physical Exam Physical Exam: Constitutional: Alert, nontoxic HEENT: Mucous membranes moist. Lungs: Decreased breath sounds, prolonged expiratory phase few scattered expiratory wheezes, overall improved airflow CV: S1-S2, regular Abdomen: Soft, nontender, nondistended Extremities: Trace ankle edema Neuro: No focal deficits Psych: Cooperative, normal mood Results & Data Results & Data Vital Signs (Past 12 Hours) Vital Signs Temp Pulse Resp BP BP Pulse Ox O2 Del Method 08/22/24 09:56 Nasal Cannula 08/22/24 07:49 36.7 C 68 16 130/58 L 95 Nasal Cannula 08/22/24 07:22 75 18 94 Nasal Cannula 08/22/24 03:40 36.5 C 79 16 125/64 95 Nasal Cannula 08/22/24 00:43 86 18 91 Nasal Cannula 08/21/24 23:26 36.8 C 89 16 144/72 H 93 Nasal Cannula O2 Flow Rate 08/22/24 09:56 2 08/22/24 07:49 2 08/22/24 07:22 2 08/22/24 03:40 2 08/22/24 00:43 2 08/21/24 23:26 2 Diagnostic Findings INR 1.4
[2024-08-22] MEDS: ENOXAPARIN 80 MG/0.8 ML SYR SQ SCH (12:04)
[2024-08-22] MEDS ORDERED: WARFARIN SOD 5 MG TAB PO SCH (16:00)
[2024-08-22] MEDS: WARFARIN SOD 4 MG TAB PO SCH (16:04)
[2024-08-23 07:22] LABS: Hematocrit (blood only) 40.3 % (42.0-52.0); Hemoglobin 13.7 g/dl (14.0-18.0); Mean Corpuscular Hemoglobin 31.9 pg (25.0-34.0); Mean Corpuscular Volume 93.9 fL (80.0-100.0); Mean Platelet Volume 9.8 fL (9.4-12.4); Platelet Count 216 K/uL (130-400); RDW Coefficient of Variation 15.7 % (11.5-14.5); RDW Standard Deviation 53.8 fL (36.4-46.3); Red Blood Count 4.29 M/uL (4.70-6.10); White Blood Count 7.71 K/ul (4.8-10.8)
[2024-08-23 07:41] LABS: INR 1.6 (0.9-1.1)
[2024-08-23 07:53] LABS: BUN Creatinine Ratio 38.5 (10-20); Calcium 9.4 mg/dl (8.6-10.3); Creatinine Clr Calc Pharmacy 45.5 ml/min; Potassium 4.5 mmol/L (3.5-5.1)
[2024-08-23 07:57] VITALS: TEMP 97.7
--- NOTE | 2024-08-23 10:06 | Discharge Summary ---
Discharge Summary Date of Service August 23, 2024 Principal Dx & Hospital Course #1 = Principal Diagnosis (1) Severe sepsis with acute organ dysfunction: (2) Acute hypoxemic respiratory failure: (3) Influenza A with pneumonia: (4) Demand ischemia of myocardium: (5) COPD exacerbation: (6) Hypomagnesemia: (7) Diabetes mellitus, type 2: (8) ICD (implantable cardioverter-defibrillator) in place: (9) Chronic obstructive pulmonary disease: (10) Sleep apnea: (11) CAD (coronary artery disease): (12) On anticoagulant therapy: (13) Chronic heart failure with reduced ejection fraction (HFrEF, <= 40%): (14) Subconjunctival hemorrhage of right eye: Plan Patient presented to the emergency room with acute shortness of breath and cough. Noted to be hypoxic and tested positive for influenza A. Patient was admitted with severe sepsis due to influenza a pneumonia with respiratory failure due to exacerbation of COPD and pneumonia. Patient also has significant demand ischemia associated with his influenza A. Patient was given supportive measures. Supported with oxygen. Started empirically on antibiotics as well as Tamiflu. On further testing low suspicion for secondary bacterial pneumonia. His antibiotics were de-escalated to doxycycline for exacerbation of COPD and he continued on the Tamiflu. He was continued on his warfarin and INR was managed daily. Cardiology consultation was obtained for significant increase in his troponin. Patient has known ischemic cardiomyopathy and decreased ejection fraction. Echocardiogram was performed and overall was stable at his baseline. Symptom gottlieb he steadily improved through his hospitalization his shortness of breath significantly improved. His troponins trended downward. Rest of his vital signs remained stable. Patient's activity increased and he was ambulating throughout the room, however he continued to require some supplemental oxygen. On the day of discharge two-step oximetry was performed and indicated that he would meet criteria for home oxygen. This will be arranged for him. He will be discharged home to follow-up with his outpatient providers. Will coordinate home oxygen. He will complete a course of doxycycline and Tamiflu. He will also complete a short 5-day burst of steroids. Notes For Next Care Provider Continue to evaluate for ongoing home oxygen needs Medication Changes From Visit Tamiflu, doxycycline, prednisone courses for his exacerbation of COPD due to influenza A Admission HPI Per Admitting Provider Patient is a 74-year-old male with PMH COPD, asthma, DM II, HFrEF, CAD, ischemic cardiomyopathy, ICD in place, CVA, anticoagulated on warfarin, CKD III, GERD, depression, anxiety, LURDES, BPH, chronic suprapubic catheter, left 3rd toe osteomyelitis s/p amputation, presented to ER with complaint of cough and SOB x 3 days. Patient reports 3 days ago started with cough which is productive of white/cream-colored sputum. Also complains of shortness of breath. He states for the past 3 days has also been having chest heaviness and tightness which is worse with walking. He has been having tactile fevers. He states has been using his albuterol inhaler 4 times a day at home which helps with shortness of breath and chest tightness initially and then quickly returns. He states around someone with a cough recently. Denies diaphoresis, N/V/D/C, MONTE, dizziness, syncope, neck pain, palpitations, hemoptysis, choking, otalgia, abdominal pain, extremity weakness, extremity edema, rashes, hematuria. Was seen at [facility] today for complaint of cough, shortness of breath. Per outpatient chart review ER note states patient was hypoxic on room air at rest with O2 sat in the 80s. Patient was found to have +Influenza A PCR. It was recommended patient be admitted, he had declined admission initially as he had requested a private room and then agreed upon admission. Per note patient was admitted by the hospitalist team however patient was still in the ER as bed not immediately available and patient ultimately chose to sign out AMA. Patient presented to [facility] this evening. In ER afebrile, P: 126, R: 27, BP: 175/80, dropped to 88% on RA. Admission Exam Per Admitting Provider See H&P Discharge Exam Constitutional: Alert, nontoxic, no acute distress HEENT: Mucous membranes moist. Right subconjunctival hemorrhage Lungs: Decreased breath sounds, prolonged expiratory phase few rare scattered wheezes CV: S1-S2, regular Abdomen: Soft, nontender, nondistended Extremities: No significant edema Neuro: No focal deficits Psych: Cooperative, normal mood Updated Medication List Medication Instructions Recorded Confirmed Type ascorbic acid (vitamin C) 500 mg 1 cap PO 3XWK 08/15/18 08/19/24 History capsule atorvastatin 80 mg tablet 80 mg PO HS 08/15/18 08/19/24 History cholecalciferol (vitamin D3) 25 1,000 unit PO QPM 08/15/18 08/19/24 History mcg (1,000 unit) capsule (Vitamin D3) clonazepam 0.5 mg tablet 0.25 mg PO DAILY PRN Anxiety 08/15/18 08/19/24 History ferrous sulfate 325 mg (65 mg 325 mg PO 3XWK 08/15/18 08/19/24 History iron) tablet nitroglycerin 0.4 mg sublingual 1 dose sublingual UD PRN Angina 08/15/18 08/19/24 History tablet pantoprazole 40 mg tablet,delayed 40 mg PO QAM 08/15/18 08/19/24 History release spironolactone 25 mg tablet 25 mg PO QAM PRN Shortness Of 08/15/18 08/19/24 History Breath Or Wheezing cranberry fruit 450 mg tablet 450 mg PO QDL 10/31/22 08/19/24 History (cranberry) fluticasone propionate 50 1 spray intranasal QDD 10/31/22 08/19/24 History mcg/actuation nasal spray,suspension insulin aspart U-100 100 unit/mL 1 sliding scale dose subcut 10/31/22 08/19/24 History subcutaneous solution (Novolog USEASDIRECTD U-100 Insulin aspart) insulin glargine 100 unit/mL (3 32 unit subcut QDD 10/31/22 08/19/24 History mL) subcutaneous pen isosorbide mononitrate 60 mg 60 mg PO QAM 10/31/22 08/19/24 History tablet,extended release 24 hr [id number] 1 cap PO DAILY 10/31/22 08/19/24 History 3,000-9,500-15,000 unit capsule, delayed rel (Creon) sertraline 50 mg tablet 50 mg PO QAM 10/31/22 08/19/24 History warfarin 2 mg tablet 2 mg PO UD 10/31/22 08/19/24 History torsemide 20 mg tablet 60 mg PO QAM 12/24/22 08/19/24 History oxybutynin chloride 5 mg tablet 5 mg PO TID #90 tabs 04/07/24 08/19/24 Rx cyanocobalamin (vitamin B-12) 500 500 mcg PO HS 08/19/24 08/19/24 History mcg tablet magnesium chloride 71.5 mg 71.5 mg PO BID 08/19/24 08/19/24 History (magnesium chloride) tablet,delayed release (Slow-Mag) metoprolol succinate 25 mg 25 mg PO DAILY 08/19/24 08/19/24 History tablet,extended release 24 hr semaglutide 0.25 mg or 0.5 mg (2 0.5 mg subcut WK 08/19/24 08/19/24 History mg/3 mL) subcutaneous pen injector (Ozempic) zolpidem 5 mg tablet 5 mg PO HS PRN Sleep 08/19/24 08/19/24 History albuterol sulfate 90 mcg/actuation 2 puff inhalation Q2H PRN 08/23/24 Rx aerosol inhaler (Ventolin HFA) Shortness Of Breath #8.5 grams benzonatate 100 mg capsule 200 mg (2 x 100 mg) PO TID PRN 08/23/24 Rx cough #30 caps clopidogrel 75 mg tablet 75 mg PO QAM #30 tabs 08/23/24 Rx doxycycline hyclate 100 mg capsule 100 mg PO BID #3 caps 08/23/24 Rx guaifenesin 600 mg tablet, 1,200 mg (2 x 600 mg) PO Q12 #30 08/23/24 Rx extended release 12 hr (Mucinex) tabs oseltamivir 30 mg capsule (Tamiflu) 30 mg PO BID 1 day #2 caps 08/23/24 Rx prednisone 20 mg tablet 40 mg (2 x 20 mg) PO DAILY #2 tabs 08/23/24 Rx Hospital Stay Data Consultations 08/19/24 19:35 ED Decision to Admit Stat 08/20/24 16:50 Consult Cardiology Routine Diagnostic Imagining Performed Reviewed imaging, laboratory and diagnostic studies. Pertinent findings as below. WBC 7.7 Hemoglobin 13.7 INR 1.6 Electrolytes stable Creatinine 1.35 Glucoses were monitored elevated due to steroids, anticipate continuing to improve as his course of prednisone is completed Pending Results Patient Have Any Pending Studies at Discharge: No Discharge Instructions Given to Patient (Per Discharging Provider) Wear oxygen at all times. Anticipate that you may be able to come off oxygen in a few weeks as you continue to recover Follow-up with your PCP Follow-up with cardiology Get PT/INR checked per usual process on Saturday Total Time Total Time Spent Total Time Spent (In Minutes): 37
[2024-08-23 11:34] VITALS: BP 121/62; RESP 16; O2SAT 94
[2024-08-23 12:10] VITALS: PULSE 70
== END 2024-08-23 14:21 | disposition home or self-care (01) | DRG 871 ==
LOC: ED 17:07 → 2W 20:52 → SUATTDRO 20:52 → 2W 21:17

== ENCOUNTER 2024-10-04 10:25 | Observation (INO) ==
--- NOTE | 2024-10-04 10:51 | Emergency Department Note ---
Impression & Plan COPD exacerbation, Breath shortness, Pleural effusion ED Provider Note NAME: STEVEN FRIEDMAN AGE: 74 SEX: M : 1950 ARRIVES VIA: Walk-In INFORMANT: Patient ED PROVIDER(S): Rufino Solorzano DO CHIEF COMPLAINT: Shortness of breath HPI: Patient is a 74-year-old male who presents to the ER with a past medical history of chronic heart failure with an EF less than 40, demand ischemia, COPD, sepsis, DKA who presents to the ER for shortness of breath which has gotten significantly worse over the past 2 days. He does admit to a mild cough. Denies any belly pain, nausea, vomiting, or diarrhea. No dysuria, urgency, or frequency. No other exacerbating or remitting factors. ADDITIONAL HISTORY OBTAINED: Per HPI Chronic Medical/Social Conditions Affecting Care: Per HPI PAST MEDICAL HISTORY:See Below PAST SURGICAL HISTORY:See Below FAMILY HISTORY:See Below SOCIAL HISTORY:See Below HOME MEDICATIONS:See Below ALLERGIES:See Below VITALS:See Below PHYSICAL EXAMINATION: GENERAL: Sitting up in bed, alert, dyspneic EYE EXAM: normal conjunctiva. OROPHARYNX: mucous membranes are moist NECK: supple, no nuchal rigidity, no adenopathy, non-tender LUNGS: Wheezing bilaterally. Normal chest wall mechanics HEART: no murmurs, S1 normal and S2 normal ABDOMEN: abdomen soft, non-tender, normo-active bowel sounds, no masses, no rebound or guarding. UPPER EXTREMITIES: upper extremities are grossly normal. LOWER EXTREMITIES: No pitting edema. NEURO EXAM: Normal sensorium, cranial nerves II-XII grossly intact, normal speech, no gross weakness of arms, no gross weakness of legs. MEDICAL DECISION MAKING: Patient is a 74-year-old female who presents ER for the above-stated complaint. IV was established and blood work was obtained. Labs show no significant leukocytosis or anemia. INR at 4.6. BMP with LFTs and bilirubin was unremarkable. Troponin was negative. Lipase was normal. Viral panel was negative. Chest x-ray with left-sided infiltrate/effusion. Patient was given neb treatments and steroids. He was given an hour-long neb treatment. He did feel significantly better. Discussed case with the hospitalist for further evaluation, management, and treatment. Consults/Care Managements Discussions: Per [facility] Triage Nursing notes reviewed. Limited review of prior medical records performed Vital Signs: reviewed and remarkable for no significant abnormalities Differential diagnosis: Differential diagnoses includes but is not limited to pneumonia, bronchitis, COPD/Asthma exacerbation, pneumothorax, pulmonary embolism, congestive heart failure, acute coronary syndrome ER treatment provided: See below Diagnostics interpreted by me include EKG and cardiac monitoring as listed below: -Cardiac Monitoring: An order was placed for continuous cardiac monitoring. The monitor shows a rate of 90 with sinus rhythm. -ECG: Sinus tachycardia rate of 146 Normal axis No PVCs QTc 414 -Laboratory studies:Interpreted by me as stated above in MDM and shown below. Imaging studies: Xrays: As interpreted by me: Portable AP upright 1 view of the chest left lower lobe infiltrate CTs show: none Procedures:none Critical Care: None Past Med/Surg History Problem List (Updated 10/04/24 @ 14:18 by Rufino Solorzano DO) Pleural effusion (Acute) Breath shortness (Acute) Subconjunctival hemorrhage of right eye Chronic heart failure with reduced ejection fraction (HFrEF, <= 40%) Demand ischemia of myocardium COPD exacerbation (Acute) Severe sepsis with acute organ dysfunction Influenza A with pneumonia DKA (diabetic ketoacidosis) (Acute) Hyperglycemia Hypomagnesemia Acute hypoxemic respiratory failure Ischemic cardiomyopathy Encounter for pre-operative examination Urinary incontinence BPH loc w/o ur obs/LUTS Recurrent UTI Bladder neck contracture Medical History CAD (coronary artery disease) HFrEF (heart failure with reduced ejection fraction) Posterior cerebral artery syndrome Carotid artery stenosis Hx MRSA infection 2014 unknown source-[facility] [place] Hx of sepsis hospitalized 09/10/22 [facility]- w/ kidney infection- multiple kidney infections in the past few months Christian catheter in place Pacemaker [employer] 2015- last checked 09/2022 GERD (gastroesophageal reflux disease) IBS (irritable bowel syndrome) Diabetes mellitus, type 2 On anticoagulant therapy on warfarin Anxiety Depression Stroke 08/28/21- right sided weakness and hip weakness 2012--short term memory loss, "left/right eye top right corner can not see out of"--d/t clot, reason for warfarin Hypertension Hyperlipidemia 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 Flory Avalos Myocardial Infarction 1994 and 2001 Sleep apnea cpap Chronic obstructive pulmonary disease Asthma inhalers daily and prn Surgical History History of prostate surgery laser procedure History of total left hip replacement History of colonoscopy History of esophagogastroduodenoscopy (EGD) History of cholecystectomy History of tooth extraction all teeth Hx of parathyroidectomy partial History of bilateral cataract extraction History of angioplasty 1994 @ [place] History of heart artery stent x4--10/2001, 11/2007, 04/2015; 2018 [facility] History of cardiac cath 2001 @ X 1 STENT @ [place]/2015 X 1 STENT @ [facility]; 2018 [facility] X 2 Family History Aunt Family history of diabetes mellitus Other No family history of adverse response to anesthesia Social History Smoking Status: Former smoker Tobacco Type: Cigarettes Cigarettes Per Day: QUIT 01/1995; Second Hand Exposure: No; Do You Dip or Chew Tobacco: No; Hx Alcohol Use: No Hx Substance Use: No Preferred Language: Palestinian Communication Ability: Effective 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 Beliefs That Will Affect Care: None Current Living Situation: Spouse Feels Safe at Home: Yes Assistive Devices: CPAP Allergies Allergies Allergy/AdvReac Type Severity Reaction Status Date / Time venlafaxine Allergy Intermediate abnormal Verified 08/19/24 19:24 sexual function azithromycin Allergy Mild Hives Verified 08/19/24 19:24 [From Zithromax Z-Konrad] levofloxacin Allergy Unknown unknown Verified 08/19/24 19:24 Penicillins Allergy Unknown rash Verified 08/19/24 19:24 phenylpropanolamine Allergy Unknown RASH Verified 08/19/24 19:24 phenyltoloxamine Allergy Unknown RASH Verified 08/19/24 19:24 adhesive tape AdvReac Unknown pulls off Verified 08/19/24 19:24 skin sinubid Allergy Unknown Hives Uncoded 08/19/24 19:24 mirtazapine AdvReac Severe dysphoria Uncoded 08/19/24 19:24 Home Meds Home Medications Medication Instructions Recorded Confirmed ascorbic acid (vitamin C) 500 mg 1 cap PO 3XWK 08/15/18 10/04/24 capsule atorvastatin 80 mg tablet 80 mg PO HS 08/15/18 10/04/24 cholecalciferol (vitamin D3) 25 1,000 unit PO QPM 08/15/18 10/04/24 mcg (1,000 unit) capsule (Vitamin D3) clonazepam 0.5 mg tablet 0.25 mg PO DAILY PRN Anxiety 08/15/18 10/04/24 ferrous sulfate 325 mg (65 mg 325 mg PO 3XWK 08/15/18 10/04/24 iron) tablet nitroglycerin 0.4 mg sublingual 1 dose sublingual UD PRN Angina 08/15/18 10/04/24 tablet pantoprazole 40 mg tablet,delayed 40 mg PO QAM 08/15/18 10/04/24 release spironolactone 25 mg tablet 25 mg PO UD PRN Shortness Of 08/15/18 10/04/24 Breath Or Wheezing cranberry fruit 450 mg tablet 450 mg PO QDL 10/31/22 10/04/24 (cranberry) fluticasone propionate 50 1 spray intranasal QDD 10/31/22 10/04/24 mcg/actuation nasal spray,suspension insulin aspart U-100 100 unit/mL 1 sliding scale dose subcut 10/31/22 10/04/24 subcutaneous solution (Novolog USEASDIRECTD U-100 Insulin aspart) insulin glargine 100 unit/mL (3 32 unit subcut QDD 10/31/22 10/04/24 mL) subcutaneous pen (Lantus Solostar U-100 Insulin) isosorbide mononitrate 60 mg 60 mg PO QAM 10/31/22 10/04/24 tablet,extended release 24 hr hmnfix-[id number]-jevbbub 1 cap PO DAILY 10/31/22 10/04/24 3,000-9,500-15,000 unit capsule, delayed rel (Creon) sertraline 50 mg tablet 50 mg PO QAM 10/31/22 10/04/24 torsemide 20 mg tablet 60 mg PO QAM 12/24/22 10/04/24 cyanocobalamin (vitamin B-12) 500 500 mcg PO PM 08/19/24 10/04/24 mcg tablet magnesium chloride 71.5 mg 71.5 mg PO BID 08/19/24 10/04/24 (magnesium chloride) tablet,delayed release (Slow-Mag) metoprolol succinate 25 mg 25 mg PO DAILY 08/19/24 10/04/24 tablet,extended release 24 hr semaglutide 0.25 mg or 0.5 mg (2 0.5 mg subcut UD 08/19/24 10/04/24 mg/3 mL) subcutaneous pen injector (Ozempic) zolpidem 5 mg tablet 5 mg PO HS PRN Sleep 08/19/24 10/04/24 guaifenesin 600 mg tablet, 1,200 mg PO UD 10/04/24 10/04/24 extended release 12 hr (Mucinex) ketoconazole 2 % shampoo 1 applic topical .Q3RD DAY 10/04/24 10/04/24 warfarin 2 mg tablet 2 - 3 mg PO UD 10/04/24 10/04/24 Previous Rx's Medication Instructions Recorded albuterol sulfate 90 mcg/actuation 2 puff inhalation Q2H PRN 08/23/24 aerosol inhaler (Ventolin HFA) Shortness Of Breath #8.5 grams benzonatate 100 mg capsule 200 mg (2 x 100 mg) PO TID PRN 08/23/24 cough #30 caps clopidogrel 75 mg tablet 75 mg PO QAM #30 tabs 08/23/24 oxybutynin chloride 5 mg tablet 5 mg PO TID #90 tabs 09/15/24 Results & Data (ED) Vital Signs Vital Signs - 24 hr 10/04/24 10:34 10/04/24 11:03 10/04/24 11:52 Temperature 36.4 C L Temperature Source Temporal Artery Scan Pulse Rate 85 87 Pulse Rate [Apical] Pulse Rhythm [Apical] Pulse Strength [Apical] Respiratory Rate 14 Respiratory Effort / Characteristics Spontaneous Respiratory Depth Normal Respiratory Pattern Regular Blood Pressure 143/70 H Blood Pressure [Left Arm] Blood Pressure Mean 94 Blood Pressure Mean [Left Arm] Blood Pressure Position [Left Arm] Pulse Oximetry 92 Oxygen Delivery Method Room Air Room Air Sepsis New/Unexplained Change in Mental Status No Sepsis Action Taken by Nursing No Action Required 10/04/24 12:31 Temperature Temperature Source Pulse Rate Pulse Rate [Apical] 92 H Pulse Rhythm [Apical] Regular Pulse Strength [Apical] Normal Respiratory Rate 22 Respiratory Effort / Characteristics Respiratory Depth Normal Respiratory Pattern Blood Pressure Blood Pressure [Left Arm] 153/63 H Blood Pressure Mean Blood Pressure Mean [Left Arm] 93 Blood Pressure Position [Left Arm] Sitting Pulse Oximetry 94 Oxygen Delivery Method Room Air Sepsis New/Unexplained Change in Mental Status Sepsis Action Taken by Nursing Laboratory Data 10/04/24 11:01 10/04/24 11:01 Lab Results 10/04/24 10/04/24 Range/Units 11:01 11:19 WBC 6.59 (4.8-10.8) K/ul RBC 4.83 (4.70-6.10) M/uL Hgb 14.8 (14.0-18.0) g/dl Hct 46.3 (42.0-52.0) % MCV 95.9 (80.0-100.0) fL MCH 30.6 (25.0-34.0) pg MCHC 32.0 (32.0-36.0) g/dL RDW Std Deviation 49.2 H (36.4-46.3) fL RDW Coeff of Junie 13.9 (11.5-14.5) % Plt Count 195 (130-400) K/uL MPV 9.3 L (9.4-12.4) fL Immature Gran % (Auto) 0.2 % Neut % (Auto) 63.9 % Lymph % (Auto) 29.3 % [place] % (Auto) 6.1 % Eos % (Auto) 0.0 % Baso % (Auto) 0.5 % Neut # (Auto) 4.22 (1.40-6.50) K/uL Lymph # (Auto) 1.93 (1.20-3.40) K/uL [place] # (Auto) 0.40 (0.11-0.59) K/uL Eos # (Auto) 0.00 (0.00-0.50) K/uL Baso # (Auto) 0.03 (0.00-0.20) K/uL Immature Gran # (Auto) 0.01 (0.01-0.20) K/uL PT 43.2 H (9.0-12.0) Seconds INR 4.6 H (0.9-1.1) Sodium 141 (136-145) mmol/L Potassium 3.8 (3.5-5.1) mmol/L Chloride 107 (98-107) mmol/L Carbon Dioxide 30 (21-32) mmol/L Anion Gap 4 (3-11) BUN 25 H (6-23) mg/dl Creatinine 1.15 (0.6-1.4) mg/dl Est Cr Clr Drug Dosing 54.2 ml/min eGFR 66.37 BUN/Creatinine Ratio 21.7 H (10-20) Glucose 211 H (70-99(Fasting)) mg/dl Calcium 9.0 (8.6-10.3) mg/dl Total Bilirubin 0.5 (0.2-1.0) mg/dl AST 9 L (13-39) U/L ALT 10 (7-52) U/L Alkaline Phosphatase 75 (34-104) U/L Troponin I High Sens 16.7 (0-20) pg/ml B-Natriuretic Peptide 156 H (0-100) pg/ml Total Protein 6.0 (6.0-8.3) gm/dl Albumin 4.0 (3.4-5.0) gm/dl Globulin 2.0 L (2.5-4.0) gm/dl Albumin/Globulin Ratio 2.0 (0.9-2) Lipase 20 (11-82) U/L Adenovirus (PCR) Not Detected (NotDetected) B. pertussis DNA (PCR) Not Detected (NotDetected) B.parapertussis DNA PCR Not Detected (NotDetected) C. pneumoniae DNA (PCR) Not Detected (NotDetected) Coronavirus OC43 (PCR) Not Detected (NotDetected) Coronavirus HKU1 (PCR) Not Detected (NotDetected) Coronavirus 229E (PCR) Not Detected (NotDetected) SARS-CoV-2 (PCR) Not Detected (NotDetected) Coronavirus NL63 (PCR) Not Detected (NotDetected) Human Metapneumovir PCR Not Detected (NotDetected) Influenza Type A (PCR) Not Detected (NotDetected) Influenza Type B (PCR) Not Detected (NotDetected) M. pneumoniae (PCR) Not Detected (NotDetected) Parainfluenza 1 (PCR) Not Detected (NotDetected) Parainfluenza 2 (PCR) Not Detected (NotDetected) Parainfluenza 3 (PCR) Not Detected (NotDetected) Parainfluenza 4 (PCR) Not Detected (NotDetected) RSV (PCR) Not Detected (NotDetected) Entero/Rhino (PCR) Not Detected (NotDetected) Administered Medications Discontinued Medications Albuterol (Albut/Ipratrop 3mg/0.5mg Neb 3 Ml Vial) 9 ml NEB NOW STA; Protocol Stop: 10/04/24 10:49 Last Admin: 10/04/24 11:17 Dose: 9 ml Documented By: JIMMY Ioversol (Optiray 320 100ml) 94 ml IV ONCE ONE Stop: 10/04/24 13:39 Last Admin: 10/04/24 13:38 Dose: 94 ml Documented By: SARIKA Methylprednisolone (Methylprednisolone 125 Mg/2 Ml Vial) 60 mg IV NOW STA Stop: 10/04/24 10:49 Last Admin: 10/04/24 11:16 Dose: 60 mg Documented By: JIMMY Imaging Data Radiologist's Impression: Chest X-Ray 10/04/24 10:48 HISTORY: Chest pain. TECHNIQUE: Portable AP radiograph of the chest. COMPARISON: Chest radiograph dated 08/19/2024. FINDINGS: hospital monitor leads overlie the chest. Moderate left effusion and left lower lung/retrocardiac opacity is similar. Clear right lung. No pneumothorax. Cardiomegaly. Left-sided aortic arch. Midline trachea. Left subclavian approach single-lead pacer/AICD with lead directed toward the right ventricular apex. hospital monitor leads overlie the chest. IMPRESSION: * No significant interval change. * Moderate left effusion with adjacent left lower lung/retrocardiac airspace opacity, which could represent pneumonia or atelectasis. * Cardiomegaly. Electronically signed by Steven Horowitz 10-04-2024 12:[address] 10/04/24 13:17 EXAMINATION: Chest CT with CLINICAL HISTORY: Assess pleural effusion, hemoptysis TECHNIQUE: Contiguous axial images were obtained through the chest with the use of intravenous contrast. Sagittal and coronal reformations are supplied. FINDINGS: A left-sided implantable cardiac device noted. Advanced pulmonary emphysema is present. Left lung base airspace consolidation present with elevation of the left hemidiaphragm. No pleural effusion. Mild hypoventilatory changes at the right lung base. Heart size mildly enlarged. No adenopathy in the chest. Trachea and mainstem bronchi patent. Thyroid normal in size. Moderate bilateral gynecomastia present. No pericardial effusion. Limited visualization of the upper abdomen shows advanced atherosclerotic disease of the aorta. No adrenal mass . In bone windows, mild osseous demineralization and kyphosis. IMPRESSION: Moderate left lung base airspace consolidation which could represent pneumonia. However, in the setting of hemoptysis, further evaluation is suggested as underlying malignancy cannot be excluded. No pleural effusion. ACT 112: Positive. There are findings on this examination that require communication between the performing entity and the patient following Patient Test Result Information Act ([place] ACT 112) guidelines. Electronically signed by Deyanira Childers 10-04-2024 2:05 PM Discharge Plan Visit Data Chief Complaint: Shortness of Breath/Dyspnea Stated Complaint: DIFFICULTY BREATHING ED Provider: Rufino Solorzano Discharge Problem: COPD exacerbation, Breath shortness, Pleural effusion Forms Stand Alone Forms: [facility] Prescriptions Prescriptions: No Action oxybutynin chloride 5 mg tablet 5 mg PO TID Qty: 90 3RF Rx Instructions: 1 1.2 tab atorvastatin 80 mg Tablet 80 mg PO HS clonazepam 0.5 mg Tablet 0.25 mg PO DAILY PRN (Reason: Anxiety) spironolactone 25 mg Tablet 25 mg PO UD PRN (Reason: Shortness Of Breath Or Wheezing) Rx Instructions: 25 mg po qam prn. per pt he thinks its dc or on hold pantoprazole 40 mg Tablet,Delayed Release (Dr/Ec) 40 mg PO QAM ferrous sulfate 325 mg (65 mg iron) Tablet 325 mg PO 3XWK Rx Instructions: sat//sun nitroglycerin 0.4 mg Tablet, Sublingual 1 dose Sublingual UD PRN (Reason: Angina) cholecalciferol (vitamin D3) [Vitamin D3] 1,000 unit Capsule 1,000 unit PO QPM ascorbic acid (vitamin C) 500 mg Capsule 1 cap PO 3XWK Rx Instructions: tue/thur/sat isosorbide mononitrate 60 mg Tablet Extended Release 24 Hr 60 mg PO QAM insulin aspart U-100 [Novolog U-100 Insulin aspart] 100 unit/mL Solution 1 sliding scale dose SUBCUT USEASDIRECTD Rx Instructions: 18 UNITS AM, 12 UNITS NOON, 10 UNITS DINNER fluticasone propionate 50 mcg/actuation [place],Suspension 1 spray INTRANASAL QDD Rx Instructions: administer into each nostril sertraline 50 mg Tablet 50 mg PO QAM insulin glargine [Lantus Solostar U-100 Insulin] 100 unit/mL (3 mL) Insulin Pen 32 unit SUBCUT QDD Creon 3,000-9,500- 15,000 unit Capsule,Delayed Release(Dr/Ec) 1 cap PO DAILY cranberry 450 mg Tablet 450 mg PO QDL Rx Instructions: administer with a meal torsemide 20 mg tablet 60 mg PO QAM zolpidem 5 mg tablet 5 mg PO HS PRN (Reason: Sleep) cyanocobalamin (vitamin B-12) 500 mcg Tablet 500 mcg PO PM Slow-Mag 71.5 mg tablet,delayed release (DR/EC) 71.5 mg PO BID Ozempic 0.25 mg or 0.5 mg (2 mg/3 mL) Pen Injector 0.5 mg SUBCUT UD Rx Instructions: 0.5 mg subcut wk. When asked about this medication, pt said they changed it to "1 1/2 tab" No fill history available. metoprolol succinate 25 mg Tablet Extended Release 24 Hr 25 mg PO DAILY benzonatate 100 mg Capsule 200 mg PO TID PRN (Reason: cough) Qty: 30 0RF clopidogrel 75 mg Tablet 75 mg PO QAM Qty: 30 0RF albuterol sulfate [Ventolin HFA] 90 mcg/actuation Hfa Aerosol Inhaler 2 puff INHALATION Q2H PRN (Reason: Shortness Of Breath) Qty: 8.5 0RF ketoconazole 2 % shampoo 1 applic TOPICAL .Q3RD DAY warfarin 2 mg tablet 2 - 3 mg PO UD Rx Instructions: Sun, Tu, Th: 3 mg (1 and 1/2 tab); Rest of days: 2 mg po guaifenesin [Mucinex] 600 mg tablet extended release 12hr 1,200 mg PO UD Rx Instructions: 1200 mg po q12,.Pt didnt seem too sure of this medication Referrals Referrals: Edelmira Scott PA-C [Primary Care Provider] -
[2024-10-04] MEDS: methylPREDNISolone 125 MG/2 ML VIAL IV STA (11:16)
[2024-10-04] MEDS: ALBUT/IPRATROP 3MG/0.5MG NEB 3 ML VIAL NEB STA (11:17)
[2024-10-04 11:43] LABS: Basophils # (auto) 0.03 K/uL (0.00-0.20); Basophils % (auto) 0.5 %; Hematocrit (blood only) 46.3 % (42.0-52.0); Hemoglobin 14.8 g/dl (14.0-18.0); Immature Granulocytes # (auto) 0.01 K/uL (0.01-0.20); Immature Granulocytes % (auto) 0.2 %; Lymphocytes # (auto) 1.93 K/uL (1.20-3.40); Lymphocytes % (auto) 29.3 %; Mean Corpuscular Hemoglobin 30.6 pg (25.0-34.0); Mean Corpuscular Volume 95.9 fL (80.0-100.0); Mean Platelet Volume 9.3 fL (9.4-12.4); Monocytes % (auto) 6.1 %; Neutrophils # (auto) 4.22 K/uL (1.40-6.50); Neutrophils % (auto) 63.9 %; Platelet Count 195 K/uL (130-400); RDW Coefficient of Variation 13.9 % (11.5-14.5); RDW Standard Deviation 49.2 fL (36.4-46.3); Red Blood Count 4.83 M/uL (4.70-6.10); White Blood Count 6.59 K/ul (4.8-10.8)
[2024-10-04 12:01] LABS: BUN Creatinine Ratio 21.7 (10-20); Bilirubin,Total 0.5 mg/dl (0.2-1.0); Creatinine Clr Calc Pharmacy 54.2 ml/min; Potassium 3.8 mmol/L (3.5-5.1)
[2024-10-04 12:07] LABS: Troponin I High Sensitivity 16.7 pg/ml (0-20)
--- NOTE | 2024-10-04 12:11 | XRay Report ---
HISTORY: Chest pain. TECHNIQUE: Portable AP radiograph of the chest. COMPARISON: Chest radiograph dated 08/19/2024. FINDINGS: shelter monitor leads overlie the chest. Moderate left effusion and left lower lung/retrocardiac opacity is similar. Clear right lung. No pneumothorax. Cardiomegaly. Left-sided aortic arch. Midline trachea. Left subclavian approach single-lead pacer/AICD with lead directed toward the right ventricular apex. shelter monitor leads overlie the chest. IMPRESSION: * No significant interval change. * Moderate left effusion with adjacent left lower lung/retrocardiac airspace opacity, which could represent pneumonia or atelectasis. * Cardiomegaly. Electronically signed by Kevyn Horowitz 10-04-2024 12:11 PM
[2024-10-04 12:13] LABS: INR 4.6 (0.9-1.1); Prothrombin Time 43.2 Seconds (9.0-12.0)
--- NOTE | 2024-10-04 12:17 | Electrocardiogram Report ---
Test Reason : Blood Pressure : */* mmHG Vent. Rate : 83 BPM Atrial Rate : 83 BPM P-R Int : 240 ms QRS Dur : 86 ms QT Int : 370 ms P-R-T Axes : * -20 113 degrees QTcB Int : 434 ms Sinus rhythm with 1st degree A-V block with Fusion complexes Low voltage QRS Inferior infarct (cited on or before 28-Sep-2015) Cannot rule out Anterior infarct (cited on or before 28-Sep-2015) Abnormal ECG When compared with ECG of 19-Aug-2024 17:23, NE interval has increased Vent. rate has decreased by 41 bpm Questionable change in initial forces of Septal leads Questionable change in initial forces of Inferior leads Confirmed by Quentin Zambrano ([id number]) on 10/04/2024 12:17:39 PM Referred By: Confirmed By: Quentin Zambrano
[2024-10-04 12:32] LABS: Adenovirus PCR Not Detected (NotDetected); Bordetella parapertussis PCR Not Detected (NotDetected); Bordetella pertussis PCR Not Detected (NotDetected); Chlamydia pneumoniae PCR Not Detected (NotDetected); Coronavirus 229E PCR Not Detected (NotDetected); Coronavirus CoV-2 (COVID19)PCR Not Detected (NotDetected); Coronavirus HKU1 PCR Not Detected (NotDetected); Coronavirus NL63 PCR Not Detected (NotDetected); Coronavirus OC43PCR Not Detected (NotDetected); Human Metapneumovirus PCR Not Detected (NotDetected); Influenza A PCR Not Detected (NotDetected); Influenza B PCR Not Detected (NotDetected); Mycoplasma pneumoniae PCR Not Detected (NotDetected); Parainfluenza Virus 1 PCR Not Detected (NotDetected); Parainfluenza Virus 2 PCR Not Detected (NotDetected); Parainfluenza Virus 3 PCR Not Detected (NotDetected); Parainfluenza Virus 4 PCR Not Detected (NotDetected); Respiratory Syncytial VirusPCR Not Detected (NotDetected); Rhinovirus/Enterovirus PCR Not Detected (NotDetected)
--- NOTE | 2024-10-04 13:33 | History & Physical Report ---
Date of Service October 04, 2024 Assessment & Plan (1) CAD (coronary artery disease): (2) Pacemaker: (3) Diabetes mellitus, type 2: (4) Anxiety: (5) Depression: (6) Hypertension: (7) Hyperlipidemia: (8) Ischemic cardiomyopathy: (9) Chronic heart failure with reduced ejection fraction (HFrEF, <= 40%): (10) COPD exacerbation: (11) BPH loc w/o ur obs/LUTS: Plan The patient is a 74-year-old male with a past medical history of COPD, CHF, ischemic cardiomyopathy, recent admission with sepsis/pneumonia/influenza A August 2024 who presents to the ED on 10/04/2024 with complaints of worsening shortness of breath over the past 24 hours Assessment and plan: COPD exacerbation: Chest x-ray and chest CT with possible pneumonia patient notes blood-tinged sputum, check procalcitonin p.o. prednisone, s/p IV Solu-Medrol in ED, nebulizers Will hold off on antibiotics at this time, patient is treated for pneumonia 1 month ago Pulmonology consulted to rule out possible malignancy Patient will need 2 step prior to discharge Hx CHF with reduced EF30-35% Hx ischemic cardiomyopathy/ICD Continue statin/Plavix/ metoprolol/ nitrate/torsemide Hx CVA: On warfarin indefinitely, INR supratherapeutic 4.6,hold Coumadin for tonight, check INR in a.m. Hx DM2: Managed on insulin at home, SSI/4 times daily BGM, glycemic pharmacy consultation A total of 60 minutes was spent on chart review/reviewing diagnostic data/facilitating plan of care/discussion with consultants Full DVT prophylaxis: Warfarin, on hold History of Present Illness Chief Complaint: shortness of breath, wheezing Primary Care Provider: Edelmira Scott PA-C Patient is a 74-year-old male with PMH COPD, asthma, DM II, HFrEF, CAD, ischemic cardiomyopathy, ICD in place, CVA, anticoagulated on warfarin, CKD III, GERD, depression, anxiety, LURDES, BPH, chronic suprapubic catheter, left 3rd toe osteomyelitis s/p amputation, presented to ER on 10/04/2024 with complaints of shortness of breath over the past 24 hours. Patient reports trouble sleeping last night due to shortness of breath. Patient does wear a CPAP at at bedtime and reports compliance. Patient reports feeling better since he was recently discharged on 08/23/2024. At that time, he was admitted for sepsis with influenza A and respiratory failure acute exacerbation of COPD and pneumonia. At this time, he was discharged home on doxycycline/Tamiflu/5-day burst of steroids. Today, the patient reports some hemoptysis and blood-tinged sputum. Also reports some wheezing worsening with movement. Denies any fever/chills. Denies any nausea/vomiting/diarrhea. Denies any abdominal pain The patient's labs on arrival are remarkable for INR 4.6, BUN 25, glucose 211, AST 9, BNP 156, BioFire negative chest x-ray shows moderate left effusion with adjacent left lower lung/retrocardiac airspace opacity, pneumonia versus atelectasis The patient will be admitted for further management of COPD exacerbation Allergies Allergy/AdvReac Type Severity Reaction Status Date / Time venlafaxine Allergy Intermediate abnormal Verified 08/19/24 19:24 sexual function azithromycin Allergy Mild Hives Verified 08/19/24 19:24 [From Zithromax Z-Konrad] levofloxacin Allergy Unknown unknown Verified 08/19/24 19:24 Penicillins Allergy Unknown rash Verified 08/19/24 19:24 phenylpropanolamine Allergy Unknown RASH Verified 08/19/24 19:24 phenyltoloxamine Allergy Unknown RASH Verified 08/19/24 19:24 mirtazapine AdvReac Severe dysphoria Verified 10/04/24 15:45 adhesive tape AdvReac Unknown pulls off Verified 08/19/24 19:24 skin sinubid Allergy Unknown Hives Uncoded 08/19/24 19:24 Home Medications Medication Instructions Recorded Confirmed Type ascorbic acid (vitamin C) 500 mg 1 cap PO 3XWK 08/15/18 10/04/24 History capsule atorvastatin 80 mg tablet 80 mg PO HS 08/15/18 10/04/24 History cholecalciferol (vitamin D3) 25 1,000 unit PO QPM 08/15/18 10/04/24 History mcg (1,000 unit) capsule (Vitamin D3) clonazepam 0.5 mg tablet 0.25 mg PO DAILY PRN Anxiety 08/15/18 10/04/24 History ferrous sulfate 325 mg (65 mg 325 mg PO 3XWK 08/15/18 10/04/24 History iron) tablet nitroglycerin 0.4 mg sublingual 1 dose sublingual UD PRN Angina 08/15/18 10/04/24 History tablet pantoprazole 40 mg tablet,delayed 40 mg PO QAM 08/15/18 10/04/24 History release spironolactone 25 mg tablet 25 mg PO UD PRN Shortness Of 08/15/18 10/04/24 History Breath Or Wheezing cranberry fruit 450 mg tablet 450 mg PO QDL 10/31/22 10/04/24 History (cranberry) fluticasone propionate 50 1 spray intranasal QDD 10/31/22 10/04/24 History mcg/actuation nasal spray,suspension insulin aspart U-100 100 unit/mL 1 sliding scale dose subcut 10/31/22 10/04/24 History subcutaneous solution (Novolog USEASDIRECTD U-100 Insulin aspart) insulin glargine 100 unit/mL (3 32 unit subcut QDD 10/31/22 10/04/24 History mL) subcutaneous pen (Lantus Solostar U-100 Insulin) isosorbide mononitrate 60 mg 60 mg PO QAM 10/31/22 10/04/24 History tablet,extended release 24 hr auqiaa-wjixnirp-tcoalcc 1 cap PO DAILY 10/31/22 10/04/24 History 3,000-9,500-15,000 unit capsule, delayed rel (Creon) sertraline 50 mg tablet 50 mg PO QAM 10/31/22 10/04/24 History torsemide 20 mg tablet 60 mg PO QAM 12/24/22 10/04/24 History cyanocobalamin (vitamin B-12) 500 500 mcg PO PM 08/19/24 10/04/24 History mcg tablet magnesium chloride 71.5 mg 71.5 mg PO BID 08/19/24 10/04/24 History (magnesium chloride) tablet,delayed release (Slow-Mag) metoprolol succinate 25 mg 25 mg PO DAILY 08/19/24 10/04/24 History tablet,extended release 24 hr semaglutide 0.25 mg or 0.5 mg (2 0.5 mg subcut UD 08/19/24 10/04/24 History mg/3 mL) subcutaneous pen injector (Ozempic) zolpidem 5 mg tablet 5 mg PO HS PRN Sleep 08/19/24 10/04/24 History albuterol sulfate 90 mcg/actuation 2 puff inhalation Q2H PRN 08/23/24 10/04/24 Rx aerosol inhaler (Ventolin HFA) Shortness Of Breath #8.5 grams benzonatate 100 mg capsule 200 mg (2 x 100 mg) PO TID PRN 08/23/24 10/04/24 Rx cough #30 caps clopidogrel 75 mg tablet 75 mg PO QAM #30 tabs 08/23/24 10/04/24 Rx oxybutynin chloride 5 mg tablet 5 mg PO TID #90 tabs 09/15/24 10/04/24 Rx guaifenesin 600 mg tablet, 1,200 mg PO UD 10/04/24 10/04/24 History extended release 12 hr (Mucinex) ketoconazole 2 % shampoo 1 applic topical .Q3RD DAY 10/04/24 10/04/24 History warfarin 2 mg tablet 2 - 3 mg PO UD 10/04/24 10/04/24 History Past Med/Surg History Problem List (Updated 10/04/24 @ 14:18 by Rufino Solorzano DO) Pleural effusion (Acute) Breath shortness (Acute) Subconjunctival hemorrhage of right eye Chronic heart failure with reduced ejection fraction (HFrEF, <= 40%) Demand ischemia of myocardium COPD exacerbation (Acute) Severe sepsis with acute organ dysfunction Influenza A with pneumonia DKA (diabetic ketoacidosis) (Acute) Hyperglycemia Hypomagnesemia Acute hypoxemic respiratory failure Ischemic cardiomyopathy Encounter for pre-operative examination Urinary incontinence BPH loc w/o ur obs/LUTS Recurrent UTI Bladder neck contracture Medical History CAD (coronary artery disease) HFrEF (heart failure with reduced ejection fraction) Posterior cerebral artery syndrome Carotid artery stenosis Hx MRSA infection 2014 unknown source-[facility] Hx of sepsis hospitalized 09/10/22 [facility]- w/ kidney infection- multiple kidney infections in the past few months Christian catheter in place Pacemaker [employer] 2015- last checked 09/2022 GERD (gastroesophageal reflux disease) IBS (irritable bowel syndrome) Diabetes mellitus, type 2 On anticoagulant therapy on warfarin Anxiety Depression Stroke 08/28/21- right sided weakness and hip weakness 2012--short term memory loss, "left/right eye top right corner can not see out of"--d/t clot, reason for warfarin Hypertension Hyperlipidemia ICD (implantable cardioverter-defibrillator) in place 03/2016 [facility]itronic @ [facility]---follows with Dr. Flory Avalos Myocardial Infarction 1994 and 2001 Sleep apnea cpap Chronic obstructive pulmonary disease Asthma inhalers daily and prn Surgical History History of prostate surgery laser procedure History of total left hip replacement History of colonoscopy History of esophagogastroduodenoscopy (EGD) History of cholecystectomy History of tooth extraction all teeth Hx of parathyroidectomy partial History of bilateral cataract extraction History of angioplasty 1994 @ [facility] History of heart artery stent x4--10/2001, 11/2007, 04/2015; 2018 [facility] [place] History of cardiac cath 2001 @ X 1 STENT @ [place] X 1 STENT @ [facility] [place]; 2018 [facility] X 2 Family History Aunt Family history of diabetes mellitus Other No family history of adverse response to anesthesia Social History Smoking Status: Former smoker Tobacco Type: Cigarettes Cigarettes Per Day: QUIT 01/1995; Second Hand Exposure: No; Do You Dip or Chew Tobacco: No; Hx Alcohol Use: No Hx Substance Use: No Preferred Language: Georgian Communication Ability: Effective Continuous Miner Operator Required: No Beliefs That Will Affect Care: None Current Living Situation: Spouse Feels Safe at Home: Yes Assistive Devices: CPAP Review of Systems Review of Systems: All systems reviewed & are unremarkable except as noted in HPI & below Physical Exam Constitutional: WD/WN, vitals as above Eyes: PERRL, conjunctivae normal, anicteric sclerae ENMT: external ear and nose normal, oropharynx normal Neck: trachea midline, no thyromegaly Respiratory: normal respiratory effort, lungs clear to auscultation Cardiovascular: RRR, no murmur, no edema Gastrointestinal (Abdomen): normal bowel sounds, soft, nontender, no hepatosplenomegaly Musculoskeletal: no cyanosis or clubbing, extremities motor strength 5/5 Skin: no rashes, warm and dry Neurologic: PERRL, EOMI, accommodation nl, no face palsy, no dysarthria Psychiatric: A+Ox3, euthymic affect Genitourinary: no testicular masses, no penis abnormality Lymphatic: no cervical or axillary lymphadenopathy Results & Data Results & Data Vital Signs (Past 12 Hours) Vital Signs Temp Pulse Pulse Resp BP BP Pulse Ox 10/04/24 12:31 92 H 22 153/63 H 94 10/04/24 11:52 87 10/04/24 11:03 10/04/24 10:34 36.4 C L 85 14 143/70 H 92 O2 Del Method 10/04/24 12:31 Room Air 10/04/24 11:52 10/04/24 11:03 Room Air 10/04/24 10:34 Room Air Diagnostic Findings Laboratory Results WBC 6.59 K/ul (4.8-10.8) 10/04/24 11:01 RBC 4.83 M/uL (4.70-6.10) 10/04/24 11:01 Hgb 14.8 g/dl (14.0-18.0) 10/04/24 11:01 Hct 46.3 % (42.0-52.0) 10/04/24 11:01 MCV 95.9 fL (80.0-100.0) 10/04/24 11:01 MCH 30.6 pg (25.0-34.0) 10/04/24 11:01 MCHC 32.0 g/dL (32.0-36.0) 10/04/24 11:01 RDW Std Deviation 49.2 fL (36.4-46.3) H 10/04/24 11:01 RDW Coeff of Junie 13.9 % (11.5-14.5) 10/04/24 11:01 Plt Count 195 K/uL (130-400) 10/04/24 11:01 MPV 9.3 fL (9.4-12.4) L 10/04/24 11:01 Immature Gran % (Auto) 0.2 % 10/04/24 11:01 Neut % (Auto) 63.9 % 10/04/24 11:01 Lymph % (Auto) 29.3 % 10/04/24 11:01 [place] % (Auto) 6.1 % 10/04/24 11:01 Eos % (Auto) 0.0 % 10/04/24 11:01 Baso % (Auto) 0.5 % 10/04/24 11:01 Neut # (Auto) 4.22 K/uL (1.40-6.50) 10/04/24 11:01 Lymph # (Auto) 1.93 K/uL (1.20-3.40) 10/04/24 11:01 [place] # (Auto) 0.40 K/uL (0.11-0.59) 10/04/24 11:01 Eos # (Auto) 0.00 K/uL (0.00-0.50) 10/04/24 11:01 Baso # (Auto) 0.03 K/uL (0.00-0.20) 10/04/24 11:01 Immature Gran # (Auto) 0.01 K/uL (0.01-0.20) 10/04/24 11:01 PT 43.2 Seconds (9.0-12.0) H 10/04/24 11:01 INR 4.6 (0.9-1.1) H 10/04/24 11:01 Sodium 141 mmol/L (136-145) 10/04/24 11:01 Potassium 3.8 mmol/L (3.5-5.1) 10/04/24 11:01 Chloride 107 mmol/L (98-107) 10/04/24 11:01 Carbon Dioxide 30 mmol/L (21-32) 10/04/24 11:01 Anion Gap 4 (3-11) 10/04/24 11:01 BUN 25 mg/dl (6-23) H 10/04/24 11:01 Creatinine 1.15 mg/dl (0.6-1.4) 10/04/24 11:01 Est Cr Clr Drug Dosing 54.2 ml/min 10/04/24 11:01 eGFR 66.37 10/04/24 11:01 BUN/Creatinine Ratio 21.7 (10-20) H 10/04/24 11:01 Glucose 211 mg/dl (70-99(Fasting)) H 10/04/24 11:01 Calcium 9.0 mg/dl (8.6-10.3) 10/04/24 11:01 Total Bilirubin 0.5 mg/dl (0.2-1.0) 10/04/24 11:01 AST 9 U/L (13-39) L 10/04/24 11:01 ALT 10 U/L (7-52) 10/04/24 11:01 Alkaline Phosphatase 75 U/L (34-104) 10/04/24 11:01 Troponin I High Sens 16.7 pg/ml (0-20) 10/04/24 11:01 B-Natriuretic Peptide 156 pg/ml (0-100) H 10/04/24 11:01 Total Protein 6.0 gm/dl (6.0-8.3) 10/04/24 11:01 Albumin 4.0 gm/dl (3.4-5.0) 10/04/24 11:01 Globulin 2.0 gm/dl (2.5-4.0) L 10/04/24 11:01 Albumin/Globulin Ratio 2.0 (0.9-2) 10/04/24 11:01 Lipase 20 U/L (11-82) 10/04/24 11:01 Adenovirus (PCR) Not Detected (NotDetected) 10/04/24 11:19 B. pertussis DNA (PCR) Not Detected (NotDetected) 10/04/24 11:19 B.parapertussis DNA PCR Not Detected (NotDetected) 10/04/24 11:19 C. pneumoniae DNA (PCR) Not Detected (NotDetected) 10/04/24 11:19 Coronavirus OC43 (PCR) Not Detected (NotDetected) 10/04/24 11:19 Coronavirus HKU1 (PCR) Not Detected (NotDetected) 10/04/24 11:19 Coronavirus 229E (PCR) Not Detected (NotDetected) 10/04/24 11:19 SARS-CoV-2 (PCR) Not Detected (NotDetected) 10/04/24 11:19 Coronavirus NL63 (PCR) Not Detected (NotDetected) 10/04/24 11:19 Human Metapneumovir PCR Not Detected (NotDetected) 10/04/24 11:19 Influenza Type A (PCR) Not Detected (NotDetected) 10/04/24 11:19 Influenza Type B (PCR) Not Detected (NotDetected) 10/04/24 11:19 M. pneumoniae (PCR) Not Detected (NotDetected) 10/04/24 11:19 Parainfluenza 1 (PCR) Not Detected (NotDetected) 10/04/24 11:19 Parainfluenza 2 (PCR) Not Detected (NotDetected) 10/04/24 11:19 Parainfluenza 3 (PCR) Not Detected (NotDetected) 10/04/24 11:19 Parainfluenza 4 (PCR) Not Detected (NotDetected) 10/04/24 11:19 RSV (PCR) Not Detected (NotDetected) 10/04/24 11:19 Entero/Rhino (PCR) Not Detected (NotDetected) 10/04/24 11:19 Impressions Chest X-Ray 10/04/24 10:48 HISTORY: Chest pain. TECHNIQUE: Portable AP radiograph of the chest. COMPARISON: Chest radiograph dated 08/19/2024. FINDINGS: director of securities and real estate leads overlie the chest. Moderate left effusion and left lower lung/retrocardiac opacity is similar. Clear right lung. No pneumothorax. Cardiomegaly. Left-sided aortic arch. Midline trachea. Left subclavian approach single-lead pacer/AICD with lead directed toward the right ventricular apex. director of securities and real estate leads overlie the chest. IMPRESSION: * No significant interval change. * Moderate left effusion with adjacent left lower lung/retrocardiac airspace opacity, which could represent pneumonia or atelectasis. * Cardiomegaly. Electronically signed by Kevyn Horowitz 10-04-2024 12:11 PM Supervising Physician Co-Signing Physician Notes Patient seen and examined at bedside. Patient not doing great today. Symptoms have been ongoing and getting worse for months. Acutely for past few days he has really been having difficulty breathing and breathing with exertion. States he has been coughing up blood for the past few weeks, blood tinged not miriam. Has been having hacking cough for weeks that has gotten worse recently. Has recent course of abx for CAP. On exam, bilateral rhonchi and wheezing noted on exam, with diminished breath sounds in left lower lobe, JVP at baseline, no bilateral LE edema. COPD exacerbation likely 2/2 ongoing LLL infiltrate, treat with prednisone and nebs. Concern for persistent LLL opacity since July and blood tinged sputum. Symptoms/labs/hemodynamics not consistent with active CAP, however on differential, will treat with vancomycin/zosyn (MRSA/pseudomonal coverage) to start and do MRSA screen, IS, flutter valve. Malignancy on differential given persistence of infiltrate and blood tinged sputum. Other differential includes parapneumonic effusion, empyema post pneumonia treatment, less likely heart failure exacerbation/autoimmune causes. Pulmonology consulted for workup of persistent left lower lobe infiltrate with blood tinged sputum. I have seen and discussed the case with the collaborating advanced practitioner. I agree with the above H&P. I have reviewed and confirmed the patients medical history, the findings on physical examination, and the patients diagnosis and treatment plan with Ricky Anaya NP and agree with the information documented. I spent a total of 20 minutes coordinating, documenting, and providing care for this patient excluding time spent in the performance of separately billed serv ices. All of the aforementioned completed outside of collaborating with the assigned advanced practitioner for a full treatment plan. I have reviewed the advanced practitioner's documentation, and I agree with, and take responsibility for the plan of care
[2024-10-04] MEDS: OPTIRAY 320 100ml IV ONE (13:38)
--- NOTE | 2024-10-04 14:07 | CT Scan Report ---
EXAMINATION: Chest CT with CLINICAL HISTORY: Assess pleural effusion, hemoptysis TECHNIQUE: Contiguous axial images were obtained through the chest with the use of intravenous contrast. Sagittal and coronal reformations are supplied. FINDINGS: A left-sided implantable cardiac device noted. Advanced pulmonary emphysema is present. Left lung base airspace consolidation present with elevation of the left hemidiaphragm. No pleural effusion. Mild hypoventilatory changes at the right lung base. Heart size mildly enlarged. No adenopathy in the chest. Trachea and mainstem bronchi patent. Thyroid normal in size. Moderate bilateral gynecomastia present. No pericardial effusion. Limited visualization of the upper abdomen shows advanced atherosclerotic disease of the aorta. No adrenal mass . In bone windows, mild osseous demineralization and kyphosis. IMPRESSION: Moderate left lung base airspace consolidation which could represent pneumonia. However, in the setting of hemoptysis, further evaluation is suggested as underlying malignancy cannot be excluded. No pleural effusion. ACT 112: Positive. There are findings on this examination that require communication between the performing entity and the patient following Patient Test Result Information Act ([place] ACT 112) guidelines. Electronically signed by Deyanira Childers 10-04-2024 2:05 PM
[2024-10-04] MEDS ORDERED: BENZONATATE 100 MG CAPSULE PO PRN (15:39)
[2024-10-04] MEDS ORDERED: PHARMACY GLYCEMIC MGMT CONSULT PRN (15:39)
[2024-10-04] MEDS ORDERED: CARBOHYDRATES FOR HYPOGLYCEMIA PO PRN (15:39)
[2024-10-04] MEDS ORDERED: GLUCOSE 10 TAB/TUBE PO PRN (15:39)
[2024-10-04] MEDS ORDERED: GLUCAGON FOR INJ 1 MG VIAL SQ PRN (15:39)
[2024-10-04] MEDS ORDERED: DEXTROSE 50% 50 ML SYRINGE IV PRN (15:39)
[2024-10-04] MEDS ORDERED: clonazePAM 0.5 MG TAB PO PRN (15:39)
[2024-10-04] MEDS ORDERED: GLUCOSE 40% GEL 15 GM TUBE PO PRN (15:39)
[2024-10-04] MEDS ORDERED: ACETAMINOPHEN 325 MG TAB PO PRN (15:39)
[2024-10-04] MEDS ORDERED: VANCOMYCIN CONSULT ACTIVE PRN (16:01)
[2024-10-04] MEDS: CLOPIDOGREL BISULFATE 75 MG TAB PO SCH (17:18)
[2024-10-04] MEDS: guaiFENesin 600 MG TABCR PO SCH (17:19)
[2024-10-04] MEDS: FERROUS SULFATE 325 MG TAB PO SCH (17:19)
[2024-10-04] MEDS: FLUTICASONE PROPIONATE NA SPR 16 GM BTL SCH (17:19)
[2024-10-04] MEDS: ISOSORBIDE MONO EXTENDED REL 60 MG TABCR PO SCH (17:20)
[2024-10-04] MEDS: METOPROLOL SUCC 25MG EXT REL TAB PO SCH (17:20)
[2024-10-04] MEDS: PANTOprazole 40 MG TAB PO SCH (17:20)
[2024-10-04] MEDS: TORSEMIDE 20 MG TAB PO SCH (17:21)
[2024-10-04] MEDS: SERTRALINE HCL 50 MG TABLET PO SCH (17:21)
[2024-10-04] MEDS: CEFEPIME 2000MG 2,000 MG/20 ML SYR IV SCH (17:22)
[2024-10-04] MEDS: VANCOMYCIN HCL 2,000 MG in SODIUM CHLORIDE 0.9% 500 ML IV SCH (17:22)
[2024-10-04] MEDS: INSULIN ASPART PER UNIT CHARGE SC SCH (17:33)
[2024-10-04] MEDS: ALBUT/IPRATROP 3MG/0.5MG NEB 3 ML VIAL NEB SCH (19:58)
[2024-10-04] MEDS: CHOLECALCIFEROL 25 MCG (1000 UNITS) TAB PO SCH (21:22)
[2024-10-04] MEDS: ATORVASTATIN 40 MG TAB PO SCH (21:23)
[2024-10-04] MEDS: CYANOCOBALAMIN (B-12) 500 MCG TABLET PO SCH (21:23)
[2024-10-04] MEDS: LANTUS PER UNIT CHARGE SC SCH (21:26)
[2024-10-04] MEDS: ZOLPIDEM TARTRATE 5 MG TAB PO PRN (21:54)
[2024-10-05] MEDS: INSULIN ASPART PER UNIT CHARGE SC SCH (00:38)
[2024-10-05] MEDS ORDERED: VANCOMYCIN HCL 1,000 MG/270 ML BAG IV SCH (04:00)
[2024-10-05] MEDS: VANCOMYCIN HCL 1,000 MG/270 ML BAG IV SCH (04:20)
[2024-10-05 06:29] LABS: Hematocrit (blood only) 42.4 % (42.0-52.0); Hemoglobin 14.2 g/dl (14.0-18.0); Mean Corpuscular Hemoglobin 31.4 pg (25.0-34.0); Mean Corpuscular Hgb Conc 33.5 g/dL (32.0-36.0); Mean Corpuscular Volume 93.8 fL (80.0-100.0); Mean Platelet Volume 9.7 fL (9.4-12.4); Platelet Count 203 K/uL (130-400); RDW Coefficient of Variation 13.8 % (11.5-14.5); RDW Standard Deviation 47.9 fL (36.4-46.3); Red Blood Count 4.52 M/uL (4.70-6.10); White Blood Count 11.46 K/ul (4.8-10.8)
[2024-10-05 07:03] LABS: INR 3.1 (0.9-1.1); Prothrombin Time 30.6 Seconds (9.0-12.0)
[2024-10-05 07:09] LABS: BUN Creatinine Ratio 23.4 (10-20); Calcium 8.7 mg/dl (8.6-10.3); Creatinine Clr Calc Pharmacy 42.7 ml/min; Potassium 4.3 mmol/L (3.5-5.1)
[2024-10-05] MEDS: LANTUS PER UNIT CHARGE SC SCH (08:23)
[2024-10-05] MEDS: predniSONE 20 MG TAB PO SCH (08:24)
[2024-10-05] MEDS: PANCREAZE (LIPASE 4,200U) CAP PO SCH (08:28)
--- NOTE | 2024-10-05 08:36 | Pulmonary Consultation ---
Date of Consultation October 05, 2024 Assessment & Plan (1) COPD with emphysema: (2) Multifocal pneumonia: (3) Hemoptysis: (4) Pulmonary hypertension: Plan CT chest 10/04/2024 personally reviewed: Motion degraded study Centrilobular emphysema appreciated bilaterally Consolidative process appreciated in the inferior lobe lingula as well as left lower lobe Elevated left hemidiaphragm Cardiomegaly 2D echo 08/20/2024: EF 30-35%, RV normal in size and function, mild to moderate MR, PASP 43 mmHg -- Multilobar pneumonia Respiratory BioFire negative for everything on 10/04/2024 Procalcitonin 0.1, nasal MRSA negative BNP 156 -- Hemoptysis Likely secondary to pneumonia with supratherapeutic INR --COPD with emphysema States that he is on Spiriva at home Does not seem to be in exacerbation Would recommend to change to either Stiolto or Anoro on discharge --Pulmonary hypertension Likely combination of type II and type III Plan: Okay to discontinue vancomycin given that the nasal MRSA is negative Continue with antibiotics, would recommend to continue holding anticoagulation white matter Avoid flutter valve Antitussive medication [id number] No plan for bronchoscopy, recommend discontinuing steroids Patient will need a repeat CT chest in approximately 10-12 weeks, if he still has persistent left lower lobe opacity then bronchoscopy can be pursued as an outpatient Case was discussed with primary team Please note the above document was generated using voice recognition software. It may contain grammatical, syntax or spelling errors.Any formal questions or concerns about the content, text or information contained within the body of this dictation should be directly addressed to the provider for clarification. History of Present Illness Attending Physician: Marc Mckenzie MD History of Present Illness 74-year-old male presented to the hospital for shortness of breath Past medical history: Diabetes, systolic CHF, history of CVA Pulmonary consulted for hemoptysis At the time of examination patient was resting comfortably on the recliner He stated he is feeling much better since he came to the hospital No hemoptysis today. He is using Spiriva at home and is compliant with it Hemoptysis first that was appreciated yesterday. Patient was not able to quantify it. He has been having issues with cough for the last week or 2. No dysuria, no diarrhea. Denied any unusual headache or blurry vision No fever or chills Social history: [id number]-pfbm smoking history, quit in 2014. 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 Has a dog at home No history of lung cancer in the family Allergies Allergy/AdvReac Type Severity Reaction Status Date / Time venlafaxine Allergy Intermediate abnormal Verified 08/19/24 19:24 sexual function azithromycin Allergy Mild Hives Verified 08/19/24 19:24 [From Zithromax Z-Konrad] levofloxacin Allergy Unknown unknown Verified 08/19/24 19:24 Penicillins Allergy Unknown rash Verified 08/19/24 19:24 phenylpropanolamine Allergy Unknown RASH Verified 08/19/24 19:24 phenyltoloxamine Allergy Unknown RASH Verified 08/19/24 19:24 mirtazapine AdvReac Severe dysphoria Verified 10/04/24 15:45 adhesive tape AdvReac Unknown pulls off Verified 08/19/24 19:24 skin sinubid Allergy Unknown Hives Uncoded 08/19/24 19:24 Home Medications Medication Instructions Recorded Confirmed Type ascorbic acid (vitamin C) 500 mg 1 cap PO 3XWK 08/15/18 10/04/24 History capsule atorvastatin 80 mg tablet 80 mg PO HS 08/15/18 10/04/24 History cholecalciferol (vitamin D3) 25 1,000 unit PO QPM 08/15/18 10/04/24 History mcg (1,000 unit) capsule (Vitamin D3) clonazepam 0.5 mg tablet 0.25 mg PO DAILY PRN Anxiety 08/15/18 10/04/24 History ferrous sulfate 325 mg (65 mg 325 mg PO 3XWK 08/15/18 10/04/24 History iron) tablet nitroglycerin 0.4 mg sublingual 1 dose sublingual UD PRN Angina 08/15/18 10/04/24 History tablet pantoprazole 40 mg tablet,delayed 40 mg PO QAM 08/15/18 10/04/24 History release spironolactone 25 mg tablet 25 mg PO UD PRN Shortness Of 08/15/18 10/04/24 History Breath Or Wheezing cranberry fruit 450 mg tablet 450 mg PO QDL 10/31/22 10/04/24 History (cranberry) fluticasone propionate 50 1 spray intranasal QDD 10/31/22 10/04/24 History mcg/actuation nasal spray,suspension insulin aspart U-100 100 unit/mL 1 sliding scale dose subcut 10/31/22 10/04/24 History subcutaneous solution (Novolog USEASDIRECTD U-100 Insulin aspart) insulin glargine 100 unit/mL (3 32 unit subcut QDD 10/31/22 10/04/24 History mL) subcutaneous pen (Lantus Solostar U-100 Insulin) isosorbide mononitrate 60 mg 60 mg PO QAM 10/31/22 10/04/24 History tablet,extended release 24 hr [id number] 1 cap PO DAILY 10/31/22 10/04/24 History 3,000-9,500-15,000 unit capsule, delayed rel (Creon) sertraline 50 mg tablet 50 mg PO QAM 10/31/22 10/04/24 History torsemide 20 mg tablet 60 mg PO QAM 12/24/22 10/04/24 History cyanocobalamin (vitamin B-12) 500 500 mcg PO PM 08/19/24 10/04/24 History mcg tablet magnesium chloride 71.5 mg 71.5 mg PO BID 08/19/24 10/04/24 History (magnesium chloride) tablet,delayed release (Slow-Mag) metoprolol succinate 25 mg 25 mg PO DAILY 08/19/24 10/04/24 History tablet,extended release 24 hr semaglutide 0.25 mg or 0.5 mg (2 0.5 mg subcut UD 08/19/24 10/04/24 History mg/3 mL) subcutaneous pen injector (Ozempic) zolpidem 5 mg tablet 5 mg PO HS PRN Sleep 08/19/24 10/04/24 History albuterol sulfate 90 mcg/actuation 2 puff inhalation Q2H PRN 08/23/24 10/04/24 Rx aerosol inhaler (Ventolin HFA) Shortness Of Breath #8.5 grams benzonatate 100 mg capsule 200 mg (2 x 100 mg) PO TID PRN 08/23/24 10/04/24 Rx cough #30 caps clopidogrel 75 mg tablet 75 mg PO QAM #30 tabs 08/23/24 10/04/24 Rx oxybutynin chloride 5 mg tablet 5 mg PO TID #90 tabs 09/15/24 10/04/24 Rx guaifenesin 600 mg tablet, 1,200 mg PO UD 10/04/24 10/04/24 History extended release 12 hr (Mucinex) ketoconazole 2 % shampoo 1 applic topical .Q3RD DAY 10/04/24 10/04/24 History warfarin 2 mg tablet 2 - 3 mg PO UD 10/04/24 10/04/24 History Patient History Medical History CAD (coronary artery disease) HFrEF (heart failure with reduced ejection fraction) Posterior cerebral artery syndrome Carotid artery stenosis Hx MRSA infection 2014 unknown source-[facility] Hx of sepsis hospitalized 09/10/22 NIKITA Avalos- w/ kidney infection- multiple kidney infections in the past few months Christian catheter in place Pacemaker [employer] 2015- last checked 09/2022 GERD (gastroesophageal reflux disease) IBS (irritable bowel syndrome) Diabetes mellitus, type 2 On anticoagulant therapy on warfarin Anxiety Depression Stroke 08/28/21- right sided weakness and hip weakness 2012--short term memory loss, "left/right eye top right corner can not see out of"--d/t clot, reason for warfarin Hypertension Hyperlipidemia ICD (implantable cardioverter-defibrillator) in place 03/2016 [facility]itronic @ [facility]---follows with Dr. Flory Avalos Myocardial Infarction 1994 and 2001 Sleep apnea cpap Chronic obstructive pulmonary disease Asthma inhalers daily and prn Surgical History History of prostate surgery laser procedure History of total left hip replacement History of colonoscopy History of esophagogastroduodenoscopy (EGD) History of cholecystectomy History of tooth extraction all teeth Hx of parathyroidectomy partial History of bilateral cataract extraction History of angioplasty 1994 @ [facility] History of heart artery stent x4--10/2001, 11/2007, 04/2015; 2018 Charan Ríos History of cardiac cath 2001 @ [facility]/2007 X 1 STENT @ [facility]/2014 X 1 STENT @ [facility]; 2018 Charan RÍOS X 2 Family History Aunt Family history of diabetes mellitus Other No family history of adverse response to anesthesia Social History (Reviewed 01/29/25 @ 20:50 by SANJANA Babb Smoking Status: Former smoker Tobacco Type: Cigarettes Cigarettes Per Day: QUIT 01/1995; Smoking End Date: 1994; Second Hand Exposure: No; Do You Dip or Chew Tobacco: No; Hx Alcohol Use: No Hx Substance Use: No Preferred Language: Yoruba Communication Ability: Effective Play Back Operator Required: No Beliefs That Will Affect Care: None Current Living Situation: Spouse Other Information That Helps Us Care for You: No Feels Safe at Home: Yes Safety Concerns: Feels Safe At This Time Assistive Devices: Glasses Review of Systems 2 Review of Systems: All systems reviewed & are unremarkable except as noted in HPI & below Physical Exam 2 Physical Exam: Constitutional: No acute distress HEENT: EOMI, PERRLA Respiratory system: Good air entry bilaterally, no wheeze, no rhonchi, mild crackles bilaterally CVS: S1-S2 positive, no murmurs or gallops Abdomen: Soft, nontender, nondistended, positive bowel sounds x4 Extremities: +2 pulses bilaterally radialis/ dorsalis pedis, no cyanosis, no edema Neuro: Awake alert oriented x3 Psych: Normal mood and affect G/U: No Christian Skin: no rashes, warm and dry Lymphatic: no cervical or axillary lymphadenopathy Results & Data Results & Data Vital Signs (Past 12 Hours) Vital Signs Temp Pulse Pulse Resp BP Pulse Ox O2 Del Method 10/05/24 07:29 80 18 88 L Room Air 10/05/24 07:22 85 10/05/24 07:00 36.7 C 87 20 117/64 90 Room Air 10/05/24 04:10 36.5 C 84 18 120/62 96 Nasal Cannula 10/05/24 00:00 36.7 C 99 H 19 117/56 L 90 Room Air 10/04/24 22:33 99 H Laboratory Results 10/05/24 05:51 10/05/24 05:51 PG Care Time/CCT Total # of Minutes Spent Total Time Spent with Patient: Total time spent is greater than 50% in coordination of care (as documented) at patient's floor/unit and/or counseling patient: [place] [address] INT INP/OBS CARE 3/75MIN Patient Type New Diagnoses COPD with emphysema J43.9 Multifocal pneumonia J18.9 Hemoptysis R04.2 Pulmonary hypertension I27.20
[2024-10-05 10:38] VITALS: RESP 16; TEMP 97.9; O2SAT 90
--- NOTE | 2024-10-05 10:45 | Pharmacy Report ---
Pharmacy Glycemic Short Note 2 - Date of Service October 05, 2024 - Glycemic Short BSG Results (Last 24 hours): 10/04/24 10/04/24 10/04/24 11:01 16:33 20:56 Glucose 211 H POC Glucose 244 H 240 H 10/05/24 10/05/24 10/05/24 00:28 04:10 05:51 Glucose 219 H POC Glucose 262 H 210 H 10/05/24 07:06 Glucose POC Glucose 209 H OUTPATIENT ANTIDIABETIC REGIMEN: * Lantus 32 units qDD, Insulin aspart 18 units am, 12 units noon, 10 units with dinner. Ozempic 0.5 mg * A1c 5.8% 08/19/24 ASSESSMENT: * Patient admitted with COPD exacerbation, received 60 mg Solum-medrol IV x 1, BSGs have been in the low to mid 200s * Prednisone 40 mg daily starting today, tightened carb ratio to stress of 3 based on outpatient total insulin dose * Increased lantus dose this morning, will set scale for PM~ SCr increased and prednisone likely to wear off overnight so cautious with increase PLAN FOR INPATIENT GLYCEMIC CONTROL: * Hold outpatient oral diabetes medications * Basal insulin * Lantus 20 units SQ x1 this AM, scale up to 20 units PM * Bolus insulin * NovoLog per scale ACHS or Q6hrs while NPO * Goal Range: Low 110 mg/dL - High 140 mg/dL * Correction Factor: 15 mg/dL/unit * Nutritional / Prandial insulin per carb ratio of 1 unit per 4 grams CHO consumed
--- NOTE | 2024-10-05 14:45 | Electrocardiogram Report ---
Test Reason : Blood Pressure : */* mmHG Vent. Rate : 83 BPM Atrial Rate : 83 BPM P-R Int : 244 ms QRS Dur : 90 ms QT Int : 360 ms P-R-T Axes : 52 -8 100 degrees QTcB Int : 423 ms Sinus rhythm with 1st degree A-V block possible Inferior infarct (cited on or before 28-Sep-2015) Anteroseptal infarct (cited on or before 28-Sep-2015) Abnormal ECG When compared with ECG of 04-Oct-2024 10:46, Fusion complexes are no longer Present Confirmed by Bin Crouch ([id number]) on 10/05/2024 2:45:27 PM Referred By: REFERRED SELF Confirmed By: Bin Crouch
--- NOTE | 2024-10-05 15:17 | Discharge Summary ---
Date of Service October 05, 2024 Admission HPI Per Admitting Provider Patient is a 74-year-old male with PMH COPD, asthma, DM II, HFrEF, CAD, ischemic cardiomyopathy, ICD in place, CVA, anticoagulated on warfarin, CKD III, GERD, depression, anxiety, LURDES, BPH, chronic suprapubic catheter, left 3rd toe osteomyelitis s/p amputation, presented to ER on 10/04/2024 with complaints of shortness of breath over the past 24 hours. Patient reports trouble sleeping last night due to shortness of breath. Patient does wear a CPAP at at bedtime and reports compliance. Patient reports feeling better since he was recently discharged on 08/23/2024. At that time, he was admitted for sepsis with influenza A and respiratory failure acute exacerbation of COPD and pneumonia. At this time, he was discharged home on doxycycline/Tamiflu/5-day burst of steroids. Today, the patient reports some hemoptysis and blood-tinged sputum. Also reports some wheezing worsening with movement. Denies any fever/chills. Denies any nausea/vomiting/diarrhea. Denies any abdominal pain The patient's labs on arrival are remarkable for INR 4.6, BUN 25, glucose 211, AST 9, BNP 156, BioFire negative chest x-ray shows moderate left effusion with adjacent left lower lung/retrocardiac airspace opacity, pneumonia versus atelectasis The patient will be admitted for further management of COPD exacerbation Admission Exam Per Admitting Provider Constitutional: WD/WN, vitals as above Eyes: PERRL, conjunctivae normal, anicteric sclerae ENMT: external ear and nose normal, oropharynx normal Neck: trachea midline, no thyromegaly Respiratory: normal respiratory effort, lungs clear to auscultation Cardiovascular: RRR, no murmur, no edema Gastrointestinal (Abdomen): normal bowel sounds, soft, nontender, no hepatosplenomegaly Musculoskeletal: no cyanosis or clubbing, extremities motor strength 5/5 Skin: no rashes, warm and dry Neurologic: PERRL, EOMI, accommodation nl, no face palsy, no dysarthria Psychiatric: A+Ox3, euthymic affect Genitourinary: no testicular masses, no penis abnormality Lymphatic: no cervical or axillary lymphadenopathy Principal Diagnosis Pneumonia Discharge Exam Constitutional: WD/WN, vitals as above Eyes: PERRL, conjunctivae normal, anicteric sclerae ENMT: external ear and nose normal Neck: supple Respiratory: normal respiratory effort, lungs clear to auscultation Cardiovascular: RRR, no murmur, no edema Gastrointestinal (Abdomen): normal bowel sounds, soft, nontender Musculoskeletal: moves extremities Skin: no rashes, warm and dry Neurologic: PERRL, EOMI, no face palsy, no dysarthria, moves extremities Psychiatric: A+Ox3, euthymic affect Discharge Data Allergies Allergy/AdvReac Type Severity Reaction Status Date / Time venlafaxine Allergy Intermediate abnormal Verified 08/19/24 19:24 sexual function azithromycin Allergy Mild Hives Verified 08/19/24 19:24 [From Zithromax Z-Konrad] levofloxacin Allergy Unknown unknown Verified 08/19/24 19:24 Penicillins Allergy Unknown rash Verified 08/19/24 19:24 phenylpropanolamine Allergy Unknown RASH Verified 08/19/24 19:24 phenyltoloxamine Allergy Unknown RASH Verified 08/19/24 19:24 mirtazapine AdvReac Severe dysphoria Verified 10/04/24 15:45 adhesive tape AdvReac Unknown pulls off Verified 08/19/24 19:24 skin sinubid Allergy Unknown Hives Uncoded 08/19/24 19:24 Consultations 10/04/24 14:00 ED Decision to Admit Stat 10/04/24 14:49 Consult Pulmonology Routine Ordered Studies 10/04/24 13:17 CT chest diagnostic w con Stat FINDINGS: A left-sided implantable cardiac device noted. Advanced pulmonary emphysema is present. Left lung base airspace consolidation present with elevation of the left hemidiaphragm. No pleural effusion. Mild hypoventilatory changes at the right lung base. Heart size mildly enlarged. No adenopathy in the chest. Trachea and mainstem bronchi patent. Thyroid normal in size. Moderate bilateral gynecomastia present. No pericardial effusion. Limited visualization of the upper abdomen shows advanced atherosclerotic disease of the aorta. No adrenal mass . In bone windows, mild osseous demineralization and kyphosis. IMPRESSION: Moderate left lung base airspace consolidation which could represent pneumonia. However, in the setting of hemoptysis, further evaluation is suggested as underlying malignancy cannot be excluded. No pleural effusion. Hospital Course (1) CAD (coronary artery disease): (2) Pacemaker: (3) Diabetes mellitus, type 2: (4) Anxiety: (5) Depression: (6) Hypertension: (7) Hyperlipidemia: (8) Ischemic cardiomyopathy: (9) Chronic heart failure with reduced ejection fraction (HFrEF, <= 40%): (10) COPD exacerbation: (11) BPH loc w/o ur obs/LUTS: Plan The patient is a 74-year-old male with a past medical history of COPD, CHF, ischemic cardiomyopathy, recent admission with sepsis/pneumonia/influenza A August 2024 who presents to the ED on 10/04/2024 with complaints of worsening shortness of breath over the past 24 hours Assessment and plan: Multilobar pneumonia COPD w/ emphysema Hemoptysis CT chest reviewed by pleat patternmaker - Centrilobular emphysema bilaterally. Consolidative process appreciated in the inferior lobe lingula as well as left lower lobe. Elevated left hemidiaphragm patient notes blood-tinged sputum, now resolved received p.o. prednisone, s/p IV Solu-Medrol in ED - will stop steroids now, discussed w/ pulm. - nebulizers while inpt Pt initially started on vancomycin, and cefepime -> MRSA swab negative and vanco discontinued. discussed with pulm. - will discharge on cefuroxime + doxy. Pseudomonal coverage does not seem to be needed Pulmonology consulted - recommendations as above, in addition will DC on Stiolto. Pt will also need repeat CT chest in 10-12 weeks and pulm. follow up, PFTs Hx CHF with reduced EF30-35% Hx ischemic cardiomyopathy/ICD Continue statin/Plavix/ metoprolol/ nitrate/torsemide Hx CVA: On warfarin indefinitely, INR supratherapeutic 4.6,on admission, coumadin was held. current Hgb 3.1. Follow up as outpt Hx DM2: Managed on insulin at home, SSI/4 times daily BGM, glycemic pharmacy consultation Total Time Total Time Spent Total Time Spent (In Minutes): 40 Discharge Plan Discharge Items Patient Disposition: Home - Self-Care Reason For Visit: SOB,COPD EXAC Discharge Diagnosis: Pneumonia Activity: Per Instructions section Non-emergency contact: Primary Care Provider Call non-emergency contact if: you have any medication questions and your symptoms worsen Follow-up/Referrals: Edelmira Scott PA-C [Primary Care Provider] - (Date & Time 10/13/2024 9:00 AM Provider: Edelmira Scott PA-C [facility], [place] ) Diet: Carb Consistent or DM2 and Heart Healthy Addtl Attending Provider Instructions: Follow up with your primary care doctor and pleat patternmaker. Finish antibiotic treatment as prescribed - cefuroxime and doxycycline. Use inhaler - Stiolto as prescribed. You will need follow up CT chest in 10-12 weeks. Pending Studies at Discharge: No Stand-Alone Forms: My [facility] Box[facility], Smoking Cessation Medications and DC Order Prescriptions: New doxycycline hyclate 100 mg tablet 100 mg PO BID 8 Days Qty: 16 0RF cefuroxime axetil 500 mg tablet 500 mg PO BID 8 Days Qty: 16 0RF Stiolto Respimat 2.5-2.5 mcg/actuation mist 2 puff inhalation DAILY Qty: 4 0RF Continued oxybutynin chloride 5 mg tablet 5 mg PO TID Qty: 90 3RF Rx Instructions: 1 1.2 tab atorvastatin 80 mg Tablet 80 mg PO HS clonazepam 0.5 mg Tablet 0.25 mg PO DAILY PRN (Reason: Anxiety) spironolactone 25 mg Tablet 25 mg PO UD PRN (Reason: Shortness Of Breath Or Wheezing) Rx Instructions: 25 mg po qam prn. per pt he thinks its dc or on hold pantoprazole 40 mg Tablet,Delayed Release (Dr/Ec) 40 mg PO QAM ferrous sulfate 325 mg (65 mg iron) Tablet 325 mg PO 3XWK Rx Instructions: tue/thur/sun nitroglycerin 0.4 mg Tablet, Sublingual 1 dose Sublingual UD PRN (Reason: Angina) cholecalciferol (vitamin D3) [Vitamin D3] 1,000 unit Capsule 1,000 unit PO QPM ascorbic acid (vitamin C) 500 mg Capsule 1 cap PO 3XWK Rx Instructions: tue/thur/sat isosorbide mononitrate 60 mg Tablet Extended Release 24 Hr 60 mg PO QAM insulin aspart U-100 [Novolog U-100 Insulin aspart] 100 unit/mL Solution 1 sliding scale dose SUBCUT USEASDIRECTD Rx Instructions: 18 UNITS AM, 12 UNITS NOON, 10 UNITS DINNER fluticasone propionate 50 mcg/actuation [place],Suspension 1 spray INTRANASAL QDD Rx Instructions: administer into each nostril sertraline 50 mg Tablet 50 mg PO QAM insulin glargine [Lantus Solostar U-100 Insulin] 100 unit/mL (3 mL) Insulin Pen 32 unit SUBCUT QDD Creon 3,000-9,500- 15,000 unit Capsule,Delayed Release(Dr/Ec) 1 cap PO DAILY cranberry 450 mg Tablet 450 mg PO QDL Rx Instructions: administer with a meal torsemide 20 mg tablet 60 mg PO QAM zolpidem 5 mg tablet 5 mg PO HS PRN (Reason: Sleep) cyanocobalamin (vitamin B-12) 500 mcg Tablet 500 mcg PO PM Slow-Mag 71.5 mg tablet,delayed release (DR/EC) 71.5 mg PO BID Ozempic 0.25 mg or 0.5 mg (2 mg/3 mL) Pen Injector 0.5 mg SUBCUT UD Rx Instructions: 0.5 mg subcut wk. When asked about this medication, pt said they changed it to "1 1/2 tab" No fill history available. metoprolol succinate 25 mg Tablet Extended Release 24 Hr 25 mg PO DAILY benzonatate 100 mg Capsule 200 mg PO TID PRN (Reason: cough) Qty: 30 0RF clopidogrel 75 mg Tablet 75 mg PO QAM Qty: 30 0RF albuterol sulfate [Ventolin HFA] 90 mcg/actuation Hfa Aerosol Inhaler 2 puff INHALATION Q2H PRN (Reason: Shortness Of Breath) Qty: 8.5 0RF ketoconazole 2 % shampoo 1 applic TOPICAL .Q3RD DAY warfarin 2 mg tablet 2 - 3 mg PO UD Rx Instructions: Sun, Tues, Th: 3 mg (1 and 1/2 tab); Rest of days: 2 mg po guaifenesin [Mucinex] 600 mg tablet extended release 12hr 1,200 mg PO UD Rx Instructions: 1200 mg po q12,.Pt didnt seem too sure of this medication Discharge Orders: Discharge Order (Routine); Ordered 10/05/24 Ordered By: Marc Knott/Other Patient Handouts: COPD and Heart Disease, Discharge Instructions: COPD Admission Data Admit Date/Time: 10/04/24 13:29 Attending Provider: Marc Mckenzie Admit Provider: Derrell Healy Primary Care Provider: Scott,Edelmira L. Other Providers: Derrell Healy; Bradford Watson Other Interventions: Discharge Summary Assessment (RN) Last Done: 10/05/24 15:54
[2024-10-05] MEDS: guaiFENesin/DEXTROM SYRUP 200MG/20MG 10ML UDC PO SCH (15:26)
[2024-10-05 15:56] VITALS: BP 132/66; PULSE 99
--- NOTE | 2024-10-05 16:55 | Communication Note ---
Date of Service: October 05, 2024 By CMS guidelines, a determination that the admission or continued stay is not medically necessary has been made by a member of the UR committee and a physi casimiro for this hospital stay, therefore a Code 44 will be completed and the Inpatient admission will be changed to outpatient.
[2024-10-05] MEDS ORDERED: VANCOMYCIN HCL 1,250 MG in SODIUM CHLORIDE 0.9% 250 ML IV SCH (20:00)
[2024-10-06] MEDS ORDERED: LANTUS PER UNIT CHARGE SC SCH (09:00)
== END 2024-10-05 16:30 | disposition home or self-care (01) | DRG 194 ==
LOC: ED 10:25 → 2E 13:29 → INTOOBSV 13:29 → SUATTDRO 13:29 → 2E 14:32

== ENCOUNTER 2025-05-25 16:58 | Inpatient (IN) ==
--- NOTE | 2025-05-25 17:52 | XRay Report ---
Chest radiograph, one view History: Chest pain Comparison: 10/27/2024 Findings: Single AP view of the chest performed. No focal consolidation or pleural effusion. No pneumothorax. The cardiomediastinal silhouette is within normal limits. Normal pulmonary vascularity. No evidence for lymphadenopathy. Left chest wall single-lead AICD. Elevated left hemidiaphragm with subjacent atelectasis similar to prior. No visualized bony or soft tissue abnormality. Impression: No acute process Electronically signed by Bin Clancy 05-25-2025 5:48 PM
[2025-05-25 17:54] LABS: Hematocrit (blood only) 47.2 % (42.0-52.0); Hemoglobin 16.0 g/dl (14.0-18.0); Immature Granulocytes # (auto) 0.02 K/uL (0.01-0.20); Immature Granulocytes % (auto) 0.3 %; Mean Corpuscular Hemoglobin 32.1 pg (25.0-34.0); Mean Corpuscular Volume 94.8 fL (80.0-100.0); Platelet Count 205 K/uL (130-400); RDW Standard Deviation 49.7 fL (36.4-46.3); Red Blood Count 4.98 M/uL (4.70-6.10); White Blood Count 7.96 K/ul (4.8-10.8)
[2025-05-25 18:17] LABS: Alanine Aminotransferase 15.0 U/L (7-52); Albumin Globulin Ratio 1.9 (0.9-2); Albumin Level 4.3 gm/dl (3.4-5.0); Alkaline Phosphatase 68.0 U/L (34-104); Anion Gap 9.0 (3-11); Bilirubin,Total 0.7 mg/dl (0.2-1.0); Blood Urea Nitrogen 34.0 mg/dl (6-23); Calcium 9.3 mg/dl (8.6-10.3); Carbon Dioxide 31.0 mmol/L (21-32); Chloride 103.0 mmol/L (98-107); Creatinine Clr Calc Pharmacy 41.1 ml/min; Globulin 2.3 gm/dl (2.5-4.0); Glucose 138.0 mg/dl (70-99(Fasting)); Potassium 3.9 mmol/L (3.5-5.1); Sodium 143.0 mmol/L (136-145); Total Protein 6.6 gm/dl (6.0-8.3)
[2025-05-25 18:23] LABS: Influenza A virus by PCR Negative (Neg); Influenza B virus by PCR Negative (Neg); SARS CoV2 RNA(COVID-19) Ceph NEGATIVE (Negative)
[2025-05-25 18:28] LABS: INR 2.3 (0.9-1.1); Partial Thromboplastin Time 39 Seconds (21-31); Prothrombin Time 23.0 Seconds (9.0-12.0)
[2025-05-25] MEDS: ALBUT/IPRATROP 3MG/0.5MG NEB 3 ML VIAL NEB STA (20:17)
--- NOTE | 2025-05-25 20:17 | Emergency Department Note ---
History of Present Illness General Chief complaint: Shortness of Breath/Dyspnea Stated complaint: SOB SINCE ~SAT Time Seen by Provider: 05/25/25 19:25 History of Present Illness Patient is a 74-year-old male with past medical history significant for COPD, BPH, ischemic cardiomyopathy, history of CHF, diabetes, dyslipidemia, anxiety, chronic anticoagulation with other chronic medical problems who presents to the emergency department for evaluation of shortness of breath. Patient notes that when he saw Dr. Dubon, his rail project engineer most recently, he was given oxygen to wear with activity. He notes however when he went to the MD, they told him that he should be wearing the oxygen all of the time, and provided him with a more robust oxygen supply. He states that he wore the oxygen all of the time for a few days, then just went back to using it as needed based on pulmonology's recommendations. In the last 4 days, he has noticed increasing chest tightness and shortness of breath. He feels like he is working harder to breathe. He has been using the oxygen at home more frequently because it helps him to feel better. He does have sleep apnea and uses a CPAP, but he is waking up overnight, working hard to breathe, despite wearing the CPAP. He is checking his oxygen saturations at home and has recorded sats as low as 86% on room air. He does report a productive cough. He has an albuterol inhaler at home, he is using 2 puffs 3-4 times per day, without relief. No real chest pain, just some chest tightness. He has not been ill with any cold or URI symptoms recently. No fever or chills. Home Medications Medication Instructions Recorded Confirmed Type ascorbic acid (vitamin C) 500 mg 1 cap PO 3XWK 08/15/18 05/25/25 History capsule atorvastatin 80 mg tablet 80 mg PO HS 08/15/18 05/25/25 History cholecalciferol (vitamin D3) 25 1,000 unit PO QPM 08/15/18 05/25/25 History mcg (1,000 unit) capsule (Vitamin D3) clonazepam 0.5 mg tablet 0.25 mg PO DAILY PRN Anxiety 08/15/18 05/25/25 History ferrous sulfate 325 mg (65 mg 325 mg PO 3XWK 08/15/18 05/25/25 History iron) tablet nitroglycerin 0.4 mg sublingual 1 dose sublingual UD PRN Angina 08/15/18 05/25/25 History tablet insulin aspart U-100 100 unit/mL See Rx Instructions .Route .COMPLEX 10/31/22 05/25/25 History subcutaneous solution (Novolog U-100 Insulin aspart) insulin glargine 100 unit/mL (3 32 unit subcut QDD 10/31/22 05/25/25 History mL) subcutaneous pen (Lantus Solostar U-100 Insulin) isosorbide mononitrate 60 mg 90 mg PO QAM 10/31/22 05/25/25 History tablet,extended release 24 hr lidepp-[id number]-zwhongl (pork) 1 cap PO DAILY 10/31/22 05/25/25 History 3,000-9,500-15,000 unit capsule,del rel (Creon) sertraline 50 mg tablet 50 mg PO QAM 10/31/22 05/25/25 History torsemide 20 mg tablet 60 mg PO BID 12/24/22 05/25/25 History cyanocobalamin (vitamin B-12) 500 500 mcg PO PM 08/19/24 05/25/25 History mcg tablet magnesium chloride 71.5 mg 71.5 mg PO BID 08/19/24 05/25/25 History (magnesium chloride) tablet,delayed release (Slow-Mag) semaglutide 0.25 mg or 0.5 mg (2 0.5 mg subcut WK 08/19/24 05/25/25 History mg/3 mL) subcutaneous pen injector (Ozempic) zolpidem 5 mg tablet 5 mg PO HS Sleep 08/19/24 05/25/25 History clopidogrel 75 mg tablet 75 mg PO QAM #30 tabs 08/23/24 05/25/25 Rx warfarin 2 mg tablet See Rx Instructions .Route .COMPLEX 10/04/24 05/25/25 History Portable Oxygen #1 ea 12/24/24 12/24/24 Rx tiotropium 2.5 mcg-olodaterol 2.5 2 puff inhalation DAILY #4 grams 01/21/25 05/25/25 Rx mcg/actuation mist for inhalation (Stiolto Respimat) oxybutynin chloride 5 mg tablet 5 mg PO TID #90 tabs 02/11/25 05/25/25 Rx albuterol sulfate 90 mcg/actuation 2 puff inhalation QAM Shortness Of 05/25/25 05/25/25 History aerosol inhaler (Ventolin HFA) Breath cranberry 500 mg capsule 500 mg PO QDL 05/25/25 05/25/25 History metformin 500 mg tablet 500 mg PO ACHS 05/25/25 05/25/25 History metoprolol succinate 50 mg 25 mg PO QPM 05/25/25 05/25/25 History tablet,extended release 24 hr Allergies Allergy/AdvReac Type Severity Reaction Status Date / Time azithromycin Allergy Intermediate Hives Verified 05/25/25 20:52 [From Zithromax Z-Knorad] Penicillins Allergy Intermediate rash Verified 05/25/25 20:52 phenylpropanolamine Allergy Intermediate RASH Verified 05/25/25 20:52 phenyltoloxamine Allergy Intermediate RASH Verified 05/25/25 20:52 venlafaxine Allergy Intermediate abnormal Verified 05/25/25 20:52 sexual function levofloxacin Allergy Unknown unknown Verified 05/25/25 20:52 mirtazapine AdvReac Severe dysphoria Verified 05/25/25 20:52 adhesive tape AdvReac Intermediate pulls off Verified 05/25/25 20:52 skin sinubid Allergy Intermediate Hives Uncoded 05/25/25 20:52 Past Med/Surg History Problem List (Updated 05/25/25 @ 23:04 by Debbie Holloway) Viral upper respiratory infection (Acute) Acute exacerbation of chronic obstructive pulmonary disease (Acute) Hypoxic respiratory failure (Acute) Hypoxic respiratory failure Pulmonary nodule Obesity Abnormal chest CT Pulmonary hypertension Hemoptysis Multifocal pneumonia COPD with emphysema Pleural effusion (Acute) Breath shortness (Acute) Subconjunctival hemorrhage of right eye Chronic heart failure with reduced ejection fraction (HFrEF, <= 40%) Demand ischemia of myocardium COPD exacerbation (Acute) Severe sepsis with acute organ dysfunction Influenza A with pneumonia DKA (diabetic ketoacidosis) (Acute) Hyperglycemia Hypomagnesemia Acute hypoxemic respiratory failure Ischemic cardiomyopathy Encounter for pre-operative examination Urinary incontinence BPH loc w/o ur obs/LUTS Recurrent UTI Bladder neck contracture Medical History CAD (coronary artery disease) HFrEF (heart failure with reduced ejection fraction) Posterior cerebral artery syndrome Carotid artery stenosis Hx MRSA infection 2014 unknown source-[facility] Hx of sepsis hospitalized 09/10/22 [facility] [place]- w/ kidney infection- multiple kidney infections in the past few months Christian catheter in place Pacemaker [employer] 2015- last checked 09/2022 GERD (gastroesophageal reflux disease) IBS (irritable bowel syndrome) Diabetes mellitus, type 2 On anticoagulant therapy on warfarin Anxiety Depression Stroke 08/28/21- right sided weakness and hip weakness 2012--short term memory loss, "left/right eye top right corner can not see out of"--d/t clot, reason for warfarin Hypertension Hyperlipidemia 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 Flory Avalos Myocardial Infarction 1994 and 2001 Sleep apnea cpap Chronic obstructive pulmonary disease Asthma inhalers daily and prn Surgical History History of prostate surgery laser procedure History of total left hip replacement History of colonoscopy History of esophagogastroduodenoscopy (EGD) History of cholecystectomy History of tooth extraction all teeth Hx of parathyroidectomy partial History of bilateral cataract extraction History of angioplasty 1994 @ [place] History of heart artery stent x4--10/2001, 11/2007, 04/2015; 2018 [facility] [place] History of cardiac cath 2001 @ [place]/2007 X 1 STENT @ [place] [facility] [place] [facility] X 2 Family History Aunt Family history of diabetes mellitus Other No family history of adverse response to anesthesia Social History Smoking Status: Former smoker Tobacco Type: Cigarettes Cigarettes Per Day: QUIT 01/1995; Second Hand Exposure: No; Do You Dip or Chew Tobacco: No; Hx Alcohol Use: No Hx Substance Use: No Preferred Language: Bel[place]an Communication Ability: Effective Drivers License Examiner Required: No Beliefs That Will Affect Care: None Current Living Situation: Spouse Feels Safe at Home: Yes Assistive Devices: Cane, CPAP and Walker Review of Systems A total of 10 systems reviewed and were otherwise negative Physical Exam Vital Signs Vital Signs - 24 hr 05/25/25 17:10 05/25/25 19:23 05/25/25 19:25 Temperature 36.6 C Temperature Source Temporal Artery Scan Pulse Rate 70 71 Pulse Rate [Apical] Pulse Rhythm [Apical] Pulse Strength [Apical] Respiratory Rate 20 Respiratory Effort / Characteristics Respiratory Depth Respiratory Pattern Blood Pressure 175/96 H Blood Pressure [Right Arm] Blood Pressure Mean 122 Blood Pressure Mean [Right Arm] Blood Pressure Position [Right Arm] Pulse Oximetry 96 87 L Oxygen Delivery Method Room Air Room Air Oxygen Flow Rate Sepsis Recent Fever Within 48 Hours No Sepsis New/Unexplained Change in Mental Status N/A Sepsis Action Taken by Nursing No Action Required 05/25/25 19:29 05/25/25 21:05 Temperature Temperature Source Pulse Rate Pulse Rate [Apical] 71 71 Pulse Rhythm [Apical] Regular Regular Pulse Strength [Apical] Normal Normal Respiratory Rate 16 21 Respiratory Effort / Characteristics Non-Labored Non-Labored Respiratory Depth Normal Normal Respiratory Pattern Regular Regular Blood Pressure Blood Pressure [Right Arm] 121/60 127/88 Blood Pressure Mean Blood Pressure Mean [Right Arm] 80 101 Blood Pressure Position [Right Arm] Lying Sitting Pulse Oximetry 97 96 Oxygen Delivery Method Nasal Cannula Room Air Oxygen Flow Rate 2 Sepsis Recent Fever Within 48 Hours Sepsis New/Unexplained Change in Mental Status Sepsis Action Taken by Nursing CONSTITUTIONAL: Patient is a well-appearing 74-year-old male who is awake and alert and sitting upright on the gurney in no acute distress. He speaking in full sentences. Nursing staff had documented an oxygen saturation of 97%, so placed him on 2 L of nasal cannula oxygen. EYES: Pupils equal, round, reactive to light and accommodation. EOMs intact without nystagmus. Sclera are anicteric. ENT: Tympanic membranes intact, with normal landmarks. External canals are clear. Oral and nasopharynx are clear. Mucous membranes are moist, no lesions, tongue and gums appear normal. CARDIOVASCULAR: Regular rate and rhythm. Peripheral pulses easy to palpable. RESPIRATORY: Breath sounds markedly diminished bilaterally, few tight wheezes noted. Increased work of breathing noted. GI: Bowel sounds are present. Abdomen is soft, nontender, nondistended. No organomegaly. No pulsatile masses. No guarding or rebound. MUSCULOSKELETAL: Full range of motion of extremities x 4 with good strength. No cyanosis, edema, joint tenderness or swelling. No deformity. INTEGUMENTARY: No lesions or rash, normal skin turgor. Course Course The patient was seen and assessed as above. External medical records are reviewed. Critical pathways implemented prior to my assessment of the patient include COVID swab, chest x-ray, EKG, CBC with differential, coags, CMP, troponin. After patient was assessed, BNP was added. He was given Solu-Medrol 60 mg IV and a DuoNeb. He was requiring supplemental oxygen. Diagnostics, as interpreted by me: Laboratory studies: White count 7900. H&H 16 and 47, INR therapeutic at 2.3. No electrolyte imbalance requiring repletion. Creatinine mildly elevated at 1.53, consistent with CKD. Initial troponin and 2-hour troponin unchanged, 23.6, which is likely due to demand related ischemia. Nasal swab negative for COVID, influenza A and B and RSV. Upper respiratory BioFire positive for enterovirus/rhinovirus. BNP later added and was not indicative of severe CHF. ECG: Sinus rhythm with first-degree AV block, 70 bpm. T wave abnormality in the lateral leads improved compared to prior. Cardiac monitoring: An order was placed for continuous cardiac monitoring. The monitor shows a NSR at a rate of 71 per my interpretation. Medical decision rules: [none] Imaging studies: Chest x-ray clear, no focal consolidation. No pleural effusion. No findings concerning for failure. Patient history, physical exam and ED workup reviewed with attending physician, Dr. Coleman. All laboratory and diagnostic imaging studies were reviewed with the patient. He did report he felt improved with the nebulizer treatment and on exam did have some increased air movement but still wheezing. Presentation appears consistent with COPD exacerbation. Considered PE, but felt to be less likely and he is appropriately anticoagulated. CHF considered, but exam does not appear consistent with this, nor labs or chest x-ray. Diuretics and antibiotics held pending hospitalist evaluation. Given COPD exacerbation requiring oxygen, and inability to treat appropriately at home, I did discuss inpatient care and he was agreeable. operational risk consultant consult old, and patient reviewed with Dr. [place] with the [facility] hospitalist service. Chronic conditions affecting care: COPD, CHF, cardiomyopathy, diabetes, hypertension Differential diagnosis: acute myocardial infarction, acute coronary syndrome, myocarditis, pericarditis, pericardial effusions /tamponade, pulmonary embolism, pneumonia, pneumothorax, cardiomyopathy, congestive heart failure, anemia , COPD/asthma exacerbation, musculoskeletal, anxiety, costochondritis,. Administered Medications Doxycycline Hyclate 100 mg/ (Dextrose) 100 mls @ 50 mls/hr IV NOW STA Stop: 05/25/25 23:57 Last Admin: 05/25/25 22:49 Dose: 50 mls/hr Documented By: LONG Sodium Chloride (Nss) 500 mls @ 60 mls/hr IV .[id number] ONE Stop: 05/26/25 06:18 Last Admin: 05/25/25 22:49 Dose: 60 mls/hr Documented By: LONG Magnesium Sulfate/Dextrose (Magnesium Sulfate / D5w) 1 gm in 100 mls @ 50 mls/hr IV Q2H KENDRA Stop: 05/26/25 02:14 Last Admin: 05/25/25 22:49 Dose: 50 mls/hr Documented By: LONG Discontinued Medications Albuterol (Albut/Ipratrop 3mg/0.5mg Neb 3 Ml Vial) 3 ml NEB NOW STA; Protocol Stop: 05/25/25 20:09 Last Admin: 05/25/25 20:17 Dose: 3 ml Documented By: JOSE ALBERTO Methylprednisolone (Methylprednisolone 125 Mg/2 Ml Vial) 60 mg IV NOW STA Stop: 05/25/25 20:36 Last Admin: 05/25/25 20:42 Dose: 60 mg Documented By: JOSE ALBERTO Medical Decision Making Differential Diagnosis See ED course. Medical Records Attestation: I reviewed the patient's medical records. Home Medications Current Medication List: was personally reviewed by me Laboratory Data Attestation: I reviewed the patient's lab results. 05/25/25 17:33 05/25/25 17:33 Lab Results 05/25/25 05/25/25 05/25/25 Range/Units 17:33 19:20 20:20 WBC 7.96 (4.8-10.8) K/ul RBC 4.98 (4.70-6.10) M/uL Hgb 16.0 (14.0-18.0) g/dl Hct 47.2 (42.0-52.0) % MCV 94.8 (80.0-100.0) fL MCH 32.1 (25.0-34.0) pg MCHC 33.9 (32.0-36.0) g/dL RDW Std Deviation 49.7 H (36.4-46.3) fL RDW Coeff of Junie 14.5 (11.5-14.5) % Plt Count 205 (130-400) K/uL MPV 9.0 L (9.4-12.4) fL Immature Gran % (Auto) 0.3 % Neut % (Auto) 65.2 % Lymph % (Auto) 27.8 % Stoddard % (Auto) 6.2 % Eos % (Auto) 0.0 % Baso % (Auto) 0.5 % Neut # (Auto) 5.20 (1.40-6.50) K/uL Lymph # (Auto) 2.21 (1.20-3.40) K/uL Stoddard # (Auto) 0.49 (0.11-0.59) K/uL Eos # (Auto) 0.00 (0.00-0.50) K/uL Baso # (Auto) 0.04 (0.00-0.20) K/uL Immature Gran # (Auto) 0.02 (0.01-0.20) K/uL PT 23.0 H (9.0-12.0) Seconds INR 2.3 H (0.9-1.1) APTT 39 H (21-31) Seconds PTT Ratio 1.4 Sodium 143 (136-145) mmol/L Potassium 3.9 (3.5-5.1) mmol/L Chloride 103 (98-107) mmol/L Carbon Dioxide 31 (21-32) mmol/L Anion Gap 9 (3-11) BUN 34 H (6-23) mg/dl Creatinine 1.53 H (0.6-1.4) mg/dl Est Cr Clr Drug Dosing 41.1 ml/min eGFR 47.12 BUN/Creatinine Ratio 22.2 H (10-20) Glucose 138 H (70-99(Fasting)) mg/dl POC Glucose (70-99) mg/dl Calcium 9.3 (8.6-10.3) mg/dl Magnesium 1.6 L (1.7-2.4) mg/dl Total Bilirubin 0.7 (0.2-1.0) mg/dl AST 11 L (13-39) U/L ALT 15 (7-52) U/L Alkaline Phosphatase 68 (34-104) U/L Troponin I High Sens 23.6 H 23.6 H (0-20) pg/ml B-Natriuretic Peptide 69 (0-100) pg/ml Total Protein 6.6 (6.0-8.3) gm/dl Albumin 4.3 (3.4-5.0) gm/dl Globulin 2.3 L (2.5-4.0) gm/dl Albumin/Globulin Ratio 1.9 (0.9-2) Adenovirus (PCR) (NotDetected) B. pertussis DNA (PCR) (NotDetected) B.parapertussis DNA PCR (NotDetected) C. pneumoniae DNA (PCR) (NotDetected) Coronavirus OC43 (PCR) (NotDetected) Coronavirus HKU1 (PCR) (NotDetected) Coronavirus 229E (PCR) (NotDetected) SARS-CoV-2 (PCR) (Negative) Coronavirus NL63 (PCR) (NotDetected) Human Metapneumovir PCR (NotDetected) Influenza Type A (PCR) (Neg) Influenza Type B (PCR) (Neg) M. pneumoniae (PCR) (NotDetected) Parainfluenza 1 (PCR) (NotDetected) Parainfluenza 2 (PCR) (NotDetected) Parainfluenza 3 (PCR) (NotDetected) Parainfluenza 4 (PCR) (NotDetected) RSV (RT-PCR) (Neg) RSV (PCR) (NotDetected) Entero/Rhino (PCR) (NotDetected) 05/25/25 05/25/25 05/25/25 Range/Units 20:49 Unknown Unknown WBC (4.8-10.8) K/ul RBC (4.70-6.10) M/uL Hgb (14.0-18.0) g/dl Hct (42.0-52.0) % MCV (80.0-100.0) fL MCH (25.0-34.0) pg MCHC (32.0-36.0) g/dL RDW Std Deviation (36.4-46.3) fL RDW Coeff of Junie (11.5-14.5) % Plt Count (130-400) K/uL MPV (9.4-12.4) fL Immature Gran % (Auto) % Neut % (Auto) % Lymph % (Auto) % Stoddard % (Auto) % Eos % (Auto) % Baso % (Auto) % Neut # (Auto) (1.40-6.50) K/uL Lymph # (Auto) (1.20-3.40) K/uL Stoddard # (Auto) (0.11-0.59) K/uL Eos # (Auto) (0.00-0.50) K/uL Baso # (Auto) (0.00-0.20) K/uL Immature Gran # (Auto) (0.01-0.20) K/uL PT (9.0-12.0) Seconds INR (0.9-1.1) APTT (21-31) Seconds PTT Ratio Sodium (136-145) mmol/L Potassium (3.5-5.1) mmol/L Chloride (98-107) mmol/L Carbon Dioxide (21-32) mmol/L Anion Gap (3-11) BUN (6-23) mg/dl Creatinine (0.6-1.4) mg/dl Est Cr Clr Drug Dosing ml/min eGFR BUN/Creatinine Ratio (10-20) Glucose (70-99(Fasting)) mg/dl POC Glucose 124 H (70-99) mg/dl Calcium (8.6-10.3) mg/dl Magnesium (1.7-2.4) mg/dl Total Bilirubin (0.2-1.0) mg/dl AST (13-39) U/L ALT (7-52) U/L Alkaline Phosphatase (34-104) U/L Troponin I High Sens (0-20) pg/ml B-Natriuretic Peptide (0-100) pg/ml Total Protein (6.0-8.3) gm/dl Albumin (3.4-5.0) gm/dl Globulin (2.5-4.0) gm/dl Albumin/Globulin Ratio (0.9-2) Adenovirus (PCR) Not Detected (NotDetected) B. pertussis DNA (PCR) Not Detected (NotDetected) B.parapertussis DNA PCR Not Detected (NotDetected) C. pneumoniae DNA (PCR) Not Detected (NotDetected) Coronavirus OC43 (PCR) Not Detected (NotDetected) Coronavirus HKU1 (PCR) Not Detected (NotDetected) Coronavirus 229E (PCR) Not Detected (NotDetected) SARS-CoV-2 (PCR) NEGATIVE Not Detected (Negative) Coronavirus NL63 (PCR) Not Detected (NotDetected) Human Metapneumovir PCR Not Detected (NotDetected) Influenza Type A (PCR) Negative (Neg) Influenza Type B (PCR) (Neg) M. pneumoniae (PCR) (NotDetected) Parainfluenza 1 (PCR) (NotDetected) Parainfluenza 2 (PCR) (NotDetected) Parainfluenza 3 (PCR) (NotDetected) Parainfluenza 4 (PCR) (NotDetected) RSV (RT-PCR) (Neg) RSV (PCR) (NotDetected) Entero/Rhino (PCR) (NotDetected) 05/25/25 05/25/25 Range/Units Unknown Unknown WBC (4.8-10.8) K/ul RBC (4.70-6.10) M/uL Hgb (14.0-18.0) g/dl Hct (42.0-52.0) % MCV (80.0-100.0) fL MCH (25.0-34.0) pg MCHC (32.0-36.0) g/dL RDW Std Deviation (36.4-46.3) fL RDW Coeff of Junie (11.5-14.5) % Plt Count (130-400) K/uL MPV (9.4-12.4) fL Immature Gran % (Auto) % Neut % (Auto) % Lymph % (Auto) % Stoddard % (Auto) % Eos % (Auto) % Baso % (Auto) % Neut # (Auto) (1.40-6.50) K/uL Lymph # (Auto) (1.20-3.40) K/uL Stoddard # (Auto) (0.11-0.59) K/uL Eos # (Auto) (0.00-0.50) K/uL Baso # (Auto) (0.00-0.20) K/uL Immature Gran # (Auto) (0.01-0.20) K/uL PT (9.0-12.0) Seconds INR (0.9-1.1) APTT (21-31) Seconds PTT Ratio Sodium (136-145) mmol/L Potassium (3.5-5.1) mmol/L Chloride (98-107) mmol/L Carbon Dioxide (21-32) mmol/L Anion Gap (3-11) BUN (6-23) mg/dl Creatinine (0.6-1.4) mg/dl Est Cr Clr Drug Dosing ml/min eGFR BUN/Creatinine Ratio (10-20) Glucose (70-99(Fasting)) mg/dl POC Glucose (70-99) mg/dl Calcium (8.6-10.3) mg/dl Magnesium (1.7-2.4) mg/dl Total Bilirubin (0.2-1.0) mg/dl AST (13-39) U/L ALT (7-52) U/L Alkaline Phosphatase (34-104) U/L Troponin I High Sens (0-20) pg/ml B-Natriuretic Peptide (0-100) pg/ml Total Protein (6.0-8.3) gm/dl Albumin (3.4-5.0) gm/dl Globulin (2.5-4.0) gm/dl Albumin/Globulin Ratio (0.9-2) Adenovirus (PCR) (NotDetected) B. pertussis DNA (PCR) (NotDetected) B.parapertussis DNA PCR (NotDetected) C. pneumoniae DNA (PCR) (NotDetected) Coronavirus OC43 (PCR) (NotDetected) Coronavirus HKU1 (PCR) (NotDetected) Coronavirus 229E (PCR) (NotDetected) SARS-CoV-2 (PCR) (Negative) Coronavirus NL63 (PCR) (NotDetected) Human Metapneumovir PCR (NotDetected) Influenza Type A (PCR) Not Detected (Neg) Influenza Type B (PCR) Negative Not Detected (Neg) M. pneumoniae (PCR) Not Detected (NotDetected) Parainfluenza 1 (PCR) Not Detected (NotDetected) Parainfluenza 2 (PCR) Not Detected (NotDetected) Parainfluenza 3 (PCR) Not Detected (NotDetected) Parainfluenza 4 (PCR) Not Detected (NotDetected) RSV (RT-PCR) Negative (Neg) RSV (PCR) Not Detected (NotDetected) Entero/Rhino (PCR) DETECTED A (NotDetected) Imaging Data Attestation: I personally reviewed and interpreted this imaging study as follows: Radiologist's Impression: Chest X-Ray 05/25/25 17:15 Chest radiograph, one view History: Chest pain Comparison: 10/27/2024 Findings: Single AP view of the chest performed. No focal consolidation or pleural effusion. No pneumothorax. The cardiomediastinal silhouette is within normal limits. Normal pulmonary vascularity. No evidence for lymphadenopathy. Left chest wall single-lead AICD. Elevated left hemidiaphragm with subjacent atelectasis similar to prior. No visualized bony or soft tissue abnormality. Impression: No acute process Electronically signed by Bin Clancy 05-25-2025 5:48 PM MDM Narrative See ED course. Impression & Plan Hypoxic respiratory failure, Acute exacerbation of chronic obstructive pulmonary disease, Viral upper respiratory infection Discharge Plan Visit Data Chief Complaint: Shortness of Breath/Dyspnea Stated Complaint: SOB SINCE ~SAT ED Provider: Pita Coleman ED Midlevel Provider: Debbie Holloway Discharge Problem: Hypoxic respiratory failure, Acute exacerbation of chronic obstructive pulmonary disease, Viral upper respiratory infection Patient Disposition: Admitted As Inpatient Condition: Fair Discharge Instructions Interventions: ED Discharge Assessment Last Done: 05/25/25 23:00 Forms Stand Alone Forms: My [facility] Prescriptions Prescriptions: No Action Stiolto Respimat 2.5-2.5 mcg/actuation mist 2 puff inhalation DAILY Qty: 4 6RF oxybutynin chloride 5 mg tablet 5 mg PO TID Qty: 90 3RF (DME) Portable Oxygen Misc See Rx Instructions .MEDSUPPLY Qty: 1 0RF Rx Instructions: Oxygen 2 liters continuous via nasal cannula on exertion with portable concentrator. MICHAELA 99 atorvastatin 80 mg Tablet 80 mg PO HS clonazepam 0.5 mg Tablet 0.25 mg PO DAILY PRN (Reason: Anxiety) ferrous sulfate 325 mg (65 mg iron) Tablet 325 mg PO 3XWK Rx Instructions: tue//sun EVENINGS nitroglycerin 0.4 mg Tablet, Sublingual 1 dose Sublingual UD PRN (Reason: Angina) cholecalciferol (vitamin D3) [Vitamin D3] 1,000 unit Capsule 1,000 unit PO QPM ascorbic acid (vitamin C) 500 mg Capsule 1 cap PO 3XWK Rx Instructions: tue/thur/sat EVENINGS isosorbide mononitrate 60 mg Tablet Extended Release 24 Hr 90 mg PO QAM insulin aspart U-100 [Novolog U-100 Insulin aspart] 100 unit/mL Solution See Rx Instructions .ROUTE .COMPLEX Rx Instructions: 1 sliding scale dose subcutaneously ;18 UNITS AM, 14 UNITS NOON, 10 UNITS DINNER sertraline 50 mg Tablet 50 mg PO QAM insulin glargine [Lantus Solostar U-100 Insulin] 100 unit/mL (3 mL) Insulin Pen 32 unit SUBCUT QDD Creon 3,000-9,500- 15,000 unit Capsule,Delayed Release(Dr/Ec) 1 cap PO DAILY torsemide 20 mg tablet 60 mg PO BID zolpidem 5 mg tablet 5 mg PO HS cyanocobalamin (vitamin B-12) 500 mcg Tablet 500 mcg PO PM Slow-Mag 71.5 mg tablet,delayed release (DR/EC) 71.5 mg PO BID Ozempic 0.25 mg or 0.5 mg (2 mg/3 mL) Pen Injector 0.5 mg SUBCUT WK Rx Instructions: SUNDAYS clopidogrel 75 mg Tablet 75 mg PO QAM Qty: 30 0RF warfarin 2 mg tablet See Rx Instructions .ROUTE .COMPLEX Rx Instructions: TAKES 3 MG ON SUNDAYS ONLY, THEN TAKES 2 MG ALL OTHER DAYS metformin 500 mg Tablet 500 mg PO ACHS metoprolol succinate 50 mg Tablet Extended Release 24 Hr 25 mg PO QPM cranberry 500 mg Capsule 500 mg PO QDL Rx Instructions: administer with meals albuterol sulfate [Ventolin HFA] 90 mcg/actuation HFA aerosol inhaler 2 puff INHALATION QAM Referrals Referrals: Edelmira Scott PA-C [Primary Care Provider] -
--- NOTE | 2025-05-25 21:43 | History & Physical Report ---
Date of Service May 25, 2025 Assessment & Plan (1) Hypoxic respiratory failure: Plan: Assessment and plan below following discussion of case with ED provider and reviewing patient history/pertinent normal/abnormal diagnostic test results. Acute hypoxemic respiratory failure underlying pulmonary hypertension Secondary to COPD exacerbation secondary to complicated bronchitis No sepsis for now Troponin elevation secondary to illness in the setting of kidney dysfunction, second troponin level has plateaued chronic systolic heart failure status post ICD (EF 30%, TTE 2024), patient on the dry side hx valvular heart disease (moderate MR/mild AR/TR) CAD status post stent/PVD/CVA HTN, stable hyperlipidemia, on statin Rx LURDES on CPAP primary hyperparathyroidism status post surgery DM2 insulin requiring, well-controlled as of recent hemoglobin A1c of 5.29 July 2024 GERD, stable on PPI BPH status post surgery/suprapubic catheter past tobacco abuse Admit to medical telemetry Supplemental O2 Baseline VBG Doxycycline, Nebs RTC, prednisone course Pulmonology consult as per patient request. (Patient known to Dr. Dubon.) Based UA , monitor creatinine response to gentle IV hydration, hold home diuretic for now until creatinine back to baseline Basal bolus insulin, ISS BG goal 1 10-1 40, carb count coverage, updating hemoglobin DVT prophylaxis. Coumadin INR goal between 2 and 3 Text document was generated using [employer] voice recognition software. It may contain grammatical or spelling errors. Kindly contact undersigned for clarification of any documentation item in question. History of Present Illness Chief Complaint: Cough, worsening shortness of breath, low oxygen Primary Care Provider: Edelmira Scott PA-C History obtained from patient and records. Medical history significant for chronic systolic heart failure status post ICD (EF 30%, TTE 2024), valvular heart disease (moderate MR/mild AR/TR), CAD status post stent/PVD, HTN, hyperlipidemia, CVA, pulmonary hypertension, COPD, LURDES on CPAP, CRI (baseline creatinine 1.3), primary hyperparathyroidism status post surgery, DM2 insulin requiring, GERD, BPH status post surgery/suprapubic catheter, anxiety/mood disorder, history left toe osteomyelitis, past tobacco abuse. Last confinement September 2024 for multilobar pneumonia. 5 days history of cough symptoms productive of junky yellow sputum with worsening SOB. Denies chest pain, fluid retention, aspiration. 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 O2 sats 80s at home. Lowest O2 sats of 80s documented at the ER. Solu-Medrol and neb treatment administered at the ER. 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 [employer] Allergies Allergy/AdvReac Type Severity Reaction Status Date / Time azithromycin Allergy Intermediate Hives Verified 05/25/25 20:52 [From Zithromax Z-Konrad] Penicillins Allergy Intermediate rash Verified 05/25/25 20:52 phenylpropanolamine Allergy Intermediate RASH Verified 05/25/25 20:52 phenyltoloxamine Allergy Intermediate RASH Verified 05/25/25 20:52 venlafaxine Allergy Intermediate abnormal Verified 05/25/25 20:52 sexual function levofloxacin Allergy Unknown unknown Verified 05/25/25 20:52 mirtazapine AdvReac Severe dysphoria Verified 05/25/25 20:52 adhesive tape AdvReac Intermediate pulls off Verified 05/25/25 20:52 skin sinubid Allergy Intermediate Hives Uncoded 05/25/25 20:52 Home Medications Medication Instructions Recorded Confirmed Type ascorbic acid (vitamin C) 500 mg 1 cap PO 3XWK 08/15/18 05/25/25 History capsule atorvastatin 80 mg tablet 80 mg PO HS 08/15/18 05/25/25 History cholecalciferol (vitamin D3) 25 1,000 unit PO QPM 08/15/18 05/25/25 History mcg (1,000 unit) capsule (Vitamin D3) clonazepam 0.5 mg tablet 0.25 mg PO DAILY PRN Anxiety 08/15/18 05/25/25 History ferrous sulfate 325 mg (65 mg 325 mg PO 3XWK 08/15/18 05/25/25 History iron) tablet nitroglycerin 0.4 mg sublingual 1 dose sublingual UD PRN Angina 08/15/18 05/25/25 History tablet insulin aspart U-100 100 unit/mL See Rx Instructions .Route .COMPLEX 10/31/22 05/25/25 History subcutaneous solution (Novolog U-100 Insulin aspart) insulin glargine 100 unit/mL (3 32 unit subcut QDD 10/31/22 05/25/25 History mL) subcutaneous pen (Lantus Solostar U-100 Insulin) isosorbide mononitrate 60 mg 90 mg PO QAM 10/31/22 05/25/25 History tablet,extended release 24 hr fzfotl-ewwlqssu-mhalaxc (pork) 1 cap PO DAILY 10/31/22 05/25/25 History 3,000-9,500-15,000 unit capsule,del rel (Creon) sertraline 50 mg tablet 50 mg PO QAM 10/31/22 05/25/25 History torsemide 20 mg tablet 60 mg PO BID 12/24/22 05/25/25 History cyanocobalamin (vitamin B-12) 500 500 mcg PO PM 08/19/24 05/25/25 History mcg tablet magnesium chloride 71.5 mg 71.5 mg PO BID 08/19/24 05/25/25 History (magnesium chloride) tablet,delayed release (Slow-Mag) semaglutide 0.25 mg or 0.5 mg (2 0.5 mg subcut WK 08/19/24 05/25/25 History mg/3 mL) subcutaneous pen injector (Ozempic) zolpidem 5 mg tablet 5 mg PO HS Sleep 08/19/24 05/25/25 History clopidogrel 75 mg tablet 75 mg PO QAM #30 tabs 08/23/24 05/25/25 Rx warfarin 2 mg tablet See Rx Instructions .Route .COMPLEX 10/04/24 05/25/25 History Portable Oxygen #1 ea 12/24/24 12/24/24 Rx tiotropium 2.5 mcg-olodaterol 2.5 2 puff inhalation DAILY #4 grams 01/21/25 05/25/25 Rx mcg/actuation mist for inhalation (Stiolto Respimat) oxybutynin chloride 5 mg tablet 5 mg PO TID #90 tabs 02/11/25 05/25/25 Rx albuterol sulfate 90 mcg/actuation 2 puff inhalation QAM Shortness Of 05/25/25 05/25/25 History aerosol inhaler (Ventolin HFA) Breath cranberry 500 mg capsule 500 mg PO QDL 05/25/25 05/25/25 History metformin 500 mg tablet 500 mg PO ACHS 05/25/25 05/25/25 History metoprolol succinate 50 mg 25 mg PO QPM 05/25/25 05/25/25 History tablet,extended release 24 hr Past Med/Surg History Problem List (Updated 05/25/25 @ 23:34 by Juan Vasquez) Viral upper respiratory infection (Acute) Acute exacerbation of chronic obstructive pulmonary disease (Acute) Hypoxic respiratory failure (Acute) Hypoxic respiratory failure Pulmonary nodule Obesity Abnormal chest CT Pulmonary hypertension Hemoptysis Multifocal pneumonia COPD with emphysema Pleural effusion (Acute) Breath shortness (Acute) Subconjunctival hemorrhage of right eye Chronic heart failure with reduced ejection fraction (HFrEF, <= 40%) Demand ischemia of myocardium COPD exacerbation (Acute) Severe sepsis with acute organ dysfunction Influenza A with pneumonia DKA (diabetic ketoacidosis) (Acute) Hyperglycemia Hypomagnesemia Acute hypoxemic respiratory failure Ischemic cardiomyopathy Encounter for pre-operative examination Urinary incontinence BPH loc w/o ur obs/LUTS Recurrent UTI Bladder neck contracture Medical History CAD (coronary artery disease) HFrEF (heart failure with reduced ejection fraction) Posterior cerebral artery syndrome Carotid artery stenosis Hx MRSA infection 2014 unknown source-[facility] Hx of sepsis hospitalized 09/10/22 NIKITA Avalos- w/ kidney infection- multiple kidney infections in the past few months Christian catheter in place Pacemaker [employer] 2015- last checked 09/2022 GERD (gastroesophageal reflux disease) IBS (irritable bowel syndrome) Diabetes mellitus, type 2 On anticoagulant therapy on warfarin Anxiety Depression Stroke 08/28/21- right sided weakness and hip weakness 2012--short term memory loss, "left/right eye top right corner can not see out of"--d/t clot, reason for warfarin Hypertension Hyperlipidemia ICD (implantable cardioverter-defibrillator) in place 03/2016 meditronic @ [facility]---follows with Dr. Flory Avalos Myocardial Infarction 1994 and 2001 Sleep apnea cpap Chronic obstructive pulmonary disease Asthma inhalers daily and prn Surgical History History of prostate surgery laser procedure History of total left hip replacement History of colonoscopy History of esophagogastroduodenoscopy (EGD) History of cholecystectomy History of tooth extraction all teeth Hx of parathyroidectomy partial History of bilateral cataract extraction History of angioplasty 1994 @ [place] History of heart artery stent x4--10/2001, 11/2007, 04/2015; 2019 NIKITA Ríos History of cardiac cath 2001 @ [place]/2007 X 1 STENT @ [place]/[address] [facility] [place] Charan RÍOS X 2 Family History Aunt Family history of diabetes mellitus Other No family history of adverse response to anesthesia Social History Smoking Status: Former smoker Tobacco Type: Cigarettes Cigarettes Per Day: QUIT 01/1995; Second Hand Exposure: No; Do You Dip or Chew Tobacco: No; Hx Alcohol Use: No Hx Substance Use: No Preferred Language: Frisian Communication Ability: Effective Dish Up Person Required: No Beliefs That Will Affect Care: None Current Living Situation: Spouse Feels Safe at Home: Yes Assistive Devices: Cane, CPAP and Walker Review of Systems Review of Systems: As per HPI, all other systems reviewed and negative Physical Exam Physical Exam: GENERAL: Comfortable, pleasant, obese, no respiratory distress SKIN: Normal color, warm HEENT: Alopecia, pink palpebral conjunctivae, no ptosis, dry buccal mucosa, nasal cannula in place NECK : Supple, no tenderness CHEST : Decreased breath sounds, diffuse expiratory wheezes, no tenderness HEART : RRR, no obvious murmurs ABDOMEN: Some distention, nontender EXTREMITIES : No LE swelling/tenderness, palpable pulses, no other conspicuous deformities noted NEUROLOGIC : Coherent, no facial asymmetry, no other gross focality Results & Data Results & Data Vital Signs (Past 12 Hours) Vital Signs Temp Pulse Pulse Resp BP BP Pulse Ox 05/25/25 21:05 71 21 127/88 96 05/25/25 19:29 71 16 121/60 97 05/25/25 19:25 87 L 05/25/25 19:23 71 05/25/25 17:10 36.6 C 70 20 175/96 H 96 O2 Del Method O2 Flow Rate 05/25/25 21:05 Room Air 05/25/25 19:29 Nasal Cannula 2 05/25/25 19:25 Room Air 05/25/25 19:23 05/25/25 17:10 Room Air Laboratory Results Laboratory Results WBC 7.96 K/ul (4.8-10.8) 05/25/25 17:33 RBC 4.98 M/uL (4.70-6.10) 05/25/25 17: Hgb 16.0 g/dl (14.0-18.0) 05/25/25 17: Hct 47.2 % (42.0-52.0) 05/25/25 17: MCV 94.8 fL (80.0-100.0) 05/25/25 17: MCH 32.1 pg (25.0-34.0) 05/25/25 17: MCHC 33.9 g/dL (32.0-36.0) 05/25/25 17: RDW Std Deviation 49.7 fL (36.4-46.3) H 05/25/25: RDW Coeff of Junie 14.5 % (11.5-14.5) 05/25/25 17: Plt Count 205 K/uL (130-400) 05/25/25 17: MPV 9.0 fL (9.4-12.4) L 05/25/25 17: Immature Gran % (Auto) 0.3 % 05/25/25 17:33 Neut % (Auto) 65.2 % 05/25/25 17:33 Lymph % (Auto) 27.8 % 05/25/25 17:33 Beckham % (Auto) 6.2 % 05/25/25 17: Eos % (Auto) 0.0 % 05/25/25 17: Baso % (Auto) 0.5 % 05/25/25 17: Neut # (Auto) 5.20 K/uL (1.40-6.50) 05/25/25 17:33 Lymph # (Auto) 2.21 K/uL (1.20-3.40) 05/25/25 17:33 Beckham # (Auto) 0.49 K/uL (0.11-0.59) 05/25/25 17: Eos # (Auto) 0.00 K/uL (0.00-0.50) 05/25/25 17:33 Baso # (Auto) 0.04 K/uL (0.00-0.20) 05/25/25 17: Immature Gran # (Auto) 0.02 K/uL (0.01-0.20) 05/25/25 17:33 PT 23.0 Seconds (9.0-12.0) H 05/25/25 17:33 INR 2.3 (0.9-1.1) H 05/25/25 17:33 APTT 39 Seconds (21-31) H 05/25/25 17:33 PTT Ratio 1.4 05/25/25 17:33 Sodium 143 mmol/L (136-145) 05/25/25 17:33 Potassium 3.9 mmol/L (3.5-5.1) 05/25/25 17:33 Chloride 103 mmol/L (98-107) 05/25/25 17:33 Carbon Dioxide 31 mmol/L (21-32) 05/25/25 17:33 Anion Gap 9 (3-11) 05/25/25 17:33 BUN 34 mg/dl (6-23) H 05/25/25 17:33 Creatinine 1.53 mg/dl (0.6-1.4) H 05/25/25 17:33 Est Cr Clr Drug Dosing 41.1 ml/min 05/25/25 17:33 eGFR 47.12 05/25/25 17:33 BUN/Creatinine Ratio 22.2 (10-20) H 05/25/25 17:33 Glucose 138 mg/dl (70-99(Fasting)) H 05/25/25 17:33 POC Glucose 124 mg/dl (70-99) H 05/25/25 20:49 Calcium 9.3 mg/dl (8.6-10.3) 05/25/25 17:33 Total Bilirubin 0.7 mg/dl (0.2-1.0) 05/25/25 17:33 AST 11 U/L (13-39) L 05/25/25 17:33 ALT 15 U/L (7-52) 05/25/25 17:33 Alkaline Phosphatase 68 U/L (34-104) 05/25/25 17:33 Troponin I High Sens 23.6 pg/ml (0-20) H 05/25/25 19:20 B-Natriuretic Peptide 69 pg/ml (0-100) 05/25/25 20:20 Total Protein 6.6 gm/dl (6.0-8.3) 05/25/25 17:33 Albumin 4.3 gm/dl (3.4-5.0) 05/25/25 17:33 Globulin 2.3 gm/dl (2.5-4.0) L 05/25/25 17:33 Albumin/Globulin Ratio 1.9 (0.9-2) 05/25/25 17:33 SARS-CoV-2 (PCR) NEGATIVE (Negative) 05/25/25 Unknown Influenza Type A (PCR) Negative (Neg) 05/25/25 Unknown Influenza Type B (PCR) Negative (Neg) 05/25/25 Unknown RSV (RT-PCR) Negative (Neg) 05/25/25 Unknown Impressions Chest X-Ray 05/25/25 17:15 Chest radiograph, one view History: Chest pain Comparison: 10/27/2024 Findings: Single AP view of the chest performed. No focal consolidation or pleural effusion. No pneumothorax. The cardiomediastinal silhouette is within normal limits. Normal pulmonary vascularity. No evidence for lymphadenopathy. Left chest wall single-lead AICD. Elevated left hemidiaphragm with subjacent atelectasis similar to prior. No visualized bony or soft tissue abnormality. Impression: No acute process Electronically signed by Bin Clancy 05-25-2025 5:48 PM Diagnostic Findings EKG as per my interpretation :Rate 70, NSR, LAD, LAFB, 1 AVB, inferior and ante roseptal infarcts, T wave abnormalities lateral leads
[2025-05-25 21:56] LABS: Magnesium 1.6 mg/dl (1.7-2.4)
[2025-05-25 22:00] LABS: Chlamydia pneumoniae PCR Not Detected (NotDetected); Coronavirus 229E PCR Not Detected (NotDetected); Coronavirus CoV-2 (COVID19)PCR Not Detected (NotDetected); Coronavirus HKU1 PCR Not Detected (NotDetected); Coronavirus NL63 PCR Not Detected (NotDetected); Coronavirus OC43PCR Not Detected (NotDetected); Human Metapneumovirus PCR Not Detected (NotDetected); Parainfluenza Virus 1 PCR Not Detected (NotDetected); Parainfluenza Virus 2 PCR Not Detected (NotDetected); Parainfluenza Virus 3 PCR Not Detected (NotDetected); Parainfluenza Virus 4 PCR Not Detected (NotDetected); Respiratory Syncytial VirusPCR Not Detected (NotDetected); Rhinovirus/Enterovirus PCR DETECTED (NotDetected)
[2025-05-25] MEDS ORDERED: clonazePAM 0.5 MG TAB PO PRN (22:00)
[2025-05-25] MEDS ORDERED: DEXTROSE 50% 50 ML SYRINGE IV PRN ×2 (22:15→23:35)
[2025-05-25] MEDS ORDERED: CARBOHYDRATES FOR HYPOGLYCEMIA PO PRN ×2 (22:15→23:35)
[2025-05-25] MEDS ORDERED: GLUCOSE 10 TAB/TUBE PO PRN ×2 (22:15→23:35)
[2025-05-25] MEDS ORDERED: GLUCAGON FOR INJ 1 MG VIAL SQ PRN ×2 (22:15→23:35)
[2025-05-25] MEDS ORDERED: GLUCOSE 40% GEL 15 GM TUBE PO PRN ×2 (22:15→23:35)
[2025-05-25] MEDS: SODIUM CHLORIDE 0.9% 500 ML IV ONE (22:49)
[2025-05-25] MEDS: DOXYCYCLINE HYCLATE 100 MG in DEXTROSE 5% MINI-B 100 ML IV STA (22:49)
[2025-05-25] MEDS: MAGNESIUM SULFATE / D5W 1 GM/100 ML BAG IV SCH (22:49)
[2025-05-25 23:17] LABS: Base Excess VBG 4.1 mEq/L; HCO3 VBG 30 mmol/L; Oxygen Saturation VBG 69.6 %; PCO2 VBG 50 mmHg (38-50); PO2 VBG 35 mmHg; pH VBG 7.39 (7.36-7.41)
[2025-05-25] MEDS: FERROUS SULFATE 325 MG TAB PO SCH (23:38)
[2025-05-25] MEDS: ATORVASTATIN 40 MG TAB PO SCH (23:39)
[2025-05-25] MEDS: METOPROLOL SUCC 25MG EXT REL TAB PO SCH (23:39)
[2025-05-26] MEDS: INSULIN ASPART PER UNIT CHARGE SC SCH (00:29)
[2025-05-26] MEDS: ZOLPIDEM TARTRATE 5 MG TAB PO PRN (00:29)
[2025-05-26] MEDS ORDERED: IPRATROPIUM BROMIDE NEB SOLN 0.02% 0.5MG/2.5ML VIAL INH SCH (01:00)
[2025-05-26 01:03] LABS: Appearance Urine Clear (Clear); Bacteria Urine Automated 4+ (None Seen); Cast Urine Automated 0-2 /lpf (0-2); Epithelial Cell Urine Auto 0-2 /hpf (0-2); Glucose Urine UA 1+ (Negative); WBC Urine Automated 0-5 /hpf (0-5)
[2025-05-26] MEDS: ALBUT/IPRATROP 3MG/0.5MG NEB 3 ML VIAL NEB SCH (01:07)
--- NOTE | 2025-05-26 02:21 | Emergency Department Note ---
ED Visit Note I was consulted by the Advanced Practice Provider, Riana Holloway PA-C. I personally made/approved the management plan and take responsibility for the patient management. I performed a substantive portion of the visit. This includes the aspects of radiology review and medical decision making. Please see previous documentation for further details of the history, physical and visit. .
[2025-05-26 06:26] LABS: Hematocrit (blood only) 45.5 % (42.0-52.0); Hemoglobin 15.6 g/dl (14.0-18.0); Mean Corpuscular Hemoglobin 31.9 pg (25.0-34.0); Mean Corpuscular Volume 93.0 fL (80.0-100.0); Platelet Count 172 K/uL (130-400); RDW Standard Deviation 48.1 fL (36.4-46.3); Red Blood Count 4.89 M/uL (4.70-6.10); White Blood Count 5.62 K/ul (4.8-10.8)
[2025-05-26 06:49] LABS: Immature Granulocytes # (auto) 0.01 K/uL (0.01-0.20); Immature Granulocytes % (auto) 0.2 %
[2025-05-26 07:16] LABS: Magnesium 2.3 mg/dl (1.7-2.4); Potassium 4.4 mmol/L (3.5-5.1)
[2025-05-26 07:17] LABS: Blood Urea Nitrogen 35.0 mg/dl (6-23); Calcium 8.9 mg/dl (8.6-10.3); Carbon Dioxide 24.0 mmol/L (21-32); Chloride 106.0 mmol/L (98-107); Creatinine Clr Calc Pharmacy 44.6 ml/min; Glucose 263.0 mg/dl (70-99(Fasting))
[2025-05-26 07:19] LABS: INR 2.1 (0.9-1.1); Prothrombin Time 21.3 Seconds (9.0-12.0)
[2025-05-26 07:24] LABS: Anion Gap 8.0 (3-11); Sodium 138.0 mmol/L (136-145)
[2025-05-26] MEDS: ISOSORBIDE MONO EXTENDED REL 30 MG TABCR PO SCH (08:12)
[2025-05-26] MEDS: DOXYCYCLINE HYCLATE 100 MG CAP PO SCH (08:12)
[2025-05-26] MEDS: SERTRALINE HCL 50 MG TABLET PO SCH (08:12)
[2025-05-26] MEDS: predniSONE 20 MG TAB PO SCH (08:12)
[2025-05-26] MEDS: CLOPIDOGREL BISULFATE 75 MG TAB PO SCH (08:12)
[2025-05-26] MEDS: PANCREAZE (LIPASE 4,200U) CAP PO SCH (09:32)
[2025-05-26 09:54] LABS: Hemoglobin A1C 6.7 % (4.5-5.6)
[2025-05-26] MEDS: BUDESONIDE 0.5 MG/2 ML VIAL (PULMICORT) NEB SCH (11:06)
[2025-05-26] MEDS: FORMOTEROL 20 MCG/2 ML VIAL NEB SCH (11:07)
[2025-05-26] MEDS ORDERED: NON-FORMULARY MEDICATION (Cranberry 500 mg Capsule) PO SCH (11:30)
--- NOTE | 2025-05-26 11:40 | Hospitalist Progress Note ---
Date of Service May 26, 2025 Assessment & Plan (1) Hypoxic respiratory failure: Plan: Acute hypoxemic respiratory failure underlying pulmonary hypertension Secondary to COPD exacerbation secondary to complicated bronchitis Patient presented to the hospital with shortness of breath Respiratory viral panel positive for enterovirus Chest x-rayno acute finding Continued budesonide, formoterol nebs along with [id number] DuoNeb Continue on doxycycline and steroid Wean oxygen as tolerated Troponin elevation secondary to illness in the setting of kidney dysfunction, second troponin level has plateaued chronic systolic heart failure status post ICD (EF 30%, TTE 2024),- appears compensated hx valvular heart disease (moderate MR/mild AR/TR) CAD status post stent/PVD/CVA -continue plavix and lipitor HTN, - continue metoprolol, imdur hyperlipidemia, on statin Rx-continue LURDES on CPAP primary hyperparathyroidism status post surgery DM2 insulin requiring, well-controlled GERD, stable on PPI BPH status post surgery/suprapubic catheter past tobacco abuse Text document was generated using [employer] voice recognition software. It may contain grammatical or spelling errors. Kindly contact undersigned for clarification of any documentation item in question. Time spent evaluating patient, direct bedside care, chart review, placing orders, interpretation of diagnostic studies, discussion with consultants, patient, and family members, as well as other required patient management activities is 50 minutes Admission and Anticipated Discharge Date Admission Date: May 25, 2025 Subjective Patient seen and examined at bedside. Comfortable; not in distress. Reports that his shortness of breath has improved Review of Systems Review of Systems: All systems reviewed & are unremarkable except as noted in Subjective Physical Exam Physical Exam: GENERAL: Comfortable, pleasant, obese, no respiratory distress SKIN: Normal color, warm HEENT: Alopecia, pink palpebral conjunctivae, no ptosis, dry buccal mucosa, nasal cannula in place NECK : Supple, no tenderness CHEST : Occasional wheezes bilaterally HEART : RRR, no obvious murmurs ABDOMEN: Some distention, nontender EXTREMITIES : No LE swelling/tenderness, palpable pulses, no other conspicuous deformities noted NEUROLOGIC : Coherent, no facial asymmetry, no other gross focality Results & Data Results & Data Vital Signs (Past 12 Hours) Vital Signs Temp Pulse Pulse Resp BP Pulse Ox O2 Del Method 05/26/25 11:33 36.6 C 100 H 18 128/66 91 Nasal Cannula 05/26/25 08:26 Nasal Cannula 05/26/25 07:33 76 05/26/25 07:32 36.7 C 97 H 16 124/66 92 Nasal Cannula 05/26/25 07:01 91 H 18 91 Nasal Cannula 05/26/25 03:28 36.6 C 94 H 20 115/63 92 Nasal Cannula 05/26/25 01:07 80 18 91 Nasal Cannula 05/26/25 00:00 90 O2 Flow Rate 05/26/25 11:33 2 05/26/25 08:26 2 05/26/25 07:33 05/26/25 07:32 2 05/26/25 07:01 2 05/26/25 03:28 2 05/26/25 01:07 2 05/26/25 00:00
--- NOTE | 2025-05-26 12:36 | Electrocardiogram Report ---
Test Reason : Blood Pressure : */* mmHG Vent. Rate : 70 BPM Atrial Rate : 70 BPM P-R Int : 264 ms QRS Dur : 80 ms QT Int : 392 ms P-R-T Axes : -20 -17 135 degrees QTcB Int : 423 ms Sinus rhythm with 1st degree A-V block Low voltage QRS Inferior infarct (cited on or before 28-Sep-2015) Cannot rule out Anterior infarct (cited on or before 28-Sep-2015) T wave abnormality, consider lateral ischemia Abnormal ECG When compared with ECG of 25-Nov-2024 12:22, Premature ventricular complexes are no longer Present T wave inversion less evident in Lateral leads Confirmed by Quentin Zambrano ([id number]) on 05/26/2025 12:36:09 PM Referred By: Confirmed By: Quentin Zambrano
[2025-05-26] MEDS ORDERED: PHARMACY GLYCEMIC MGMT CONSULT PRN (13:37)
--- NOTE | 2025-05-26 13:37 | Pulmonary Consultation ---
Date of Consultation May 26, 2025 Assessment & Plan (1) Pulmonary nodule: (2) Acute exacerbation of chronic obstructive pulmonary disease: (3) Hypoxic respiratory failure: (4) Pulmonary hypertension: (5) Viral upper respiratory infection: (6) Breath shortness: (7) Sleep apnea: (8) Asthma: (9) Chronic obstructive pulmonary disease: Plan Kevyn Paredes is a 74-year-old male with past medical history of COPD, , HFrEF (EF 30-35%), GERD, IBS, DMII, anxiety, depression, HTN, HLD, GA, and LURDES; who presented to [facility] ED on 05/25/2025 with complaints of cough, SOB refractory to albuterol inhaler use, and increase in mucous production. Patient was admitted to the hospitalist service with pulmonary consulted for evaluation and management of acute COPD exacerbation. COPD; COPD Asthma overlap syndrome; Acute COPD exacerbation -Patient on Stiolto at home and appears to be compliant. -Would recommend changing Stiolto to triple therapy with ideally Trelegy 200. Patient noted to have 28% increase in FEV1 post bronchodilator. Eos count historically 0. -Okay to continue nebulized formoterol, budesonide, and duonebs. -Continue prednisone 40mg daily for total of 5 days course. -Continue doxycycline for 5 day course -Plan for follow up with Dr. Dubon in June with repeat PFT. Pulmonary Hypertension WHO group 2 and 3 -Last 2D echo 08/20/2024: EF 30-35%, RV normal in size and function, mild to moderate MR, PASP 43 mmHg. -Would maintain SpO2 > 90% -Currently on 2L NC -Hear failure management per cardiology Obstructive sleep apnea -Compliant on home CPAP -Would recommend CPAP while inpatient. Upper respiratory viral infection -Positive for entero/rhinovirus on admission -Cont supportive care Chronic hypoxic respiratory failure -Maintain SpO2 90-92% -On 2L NC upon eval today and was 92% at rest. -Patient should wear oxygen continuously as suspect SpO2 will be lower with exertion. Thank you for allowing us to participate in this patients care. Please feel free to reach out with questions or concerns. 58 minutes is the time spent reviewing the chart, obtaining history, performing the physical exam, and updating the bedside nurse and patient. History of Present Illness Reason for Consultation: COPD exacerabtion Attending Physician: Hilario Marrufo MD History of Present Illness Kevyn Paredes is a 74-year-old male with past medical history of COPD, , HFrEF (EF 30-35%), GERD, IBS, DMII, anxiety, depression, HTN, HLD, GA, and LURDES; who presented to [facility] ED on 05/25/2025 with complaints of cough, SOB refractory to albuterol inhaler use, and increase in mucous production. Patient had a CXR performed which showed no acute abnormalities or consolidations. There was noted to be elevated left hemidiaphragm and atelectasis. Patient given duonebs, started on prednisone, and doxycycline. Patient was admitted to the hospitalist service with pulmonary consulted for evaluation and management of acute COPD exacerbation. Of note patient follows with Dr. Dubon in the pulmonary clinic for his COPD and right lower lobe nodule. Patient has a estimated 50 pack year smoking history and states that he quit in 1994. 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 Patient is on Stiolto and PRN albuterol for his COPD. He does wear oxygen 2L NC per patient on an as needed basis. Though [facility] told him he needs to wear it continuously. Last PFT were on 12/24/2024 which showed severe obstructive lung dysfunction with significant bronchodilator response, air trapping, moderate decrease in DLCO FVC 2.04 L 65%, FEV1 1.04 L 46%, FEV1/FVC 51%, RV 157%, TLC 99%, RV/TLC 163%, DLCO 50%, DLCO/VA 81% Patient denies fevers, chills, night sweats, and hemoptysis. Patient has not had any unintentional weight loss. Patient is noted to have right lower lobe subpleural nodule. Plan for repeat CT in June with follow up with Dr. Dubon. Patient wears CPAP qhs and review of most recent CPAP compliance showed he used it 96% of nights with an average of 7hr 6 minutes. Last 2D echo 08/20/2024: EF 30-35%, RV normal in size and function, mild to moderate MR, PASP 43 mmHg Allergies Allergy/AdvReac Type Severity Reaction Status Date / Time azithromycin Allergy Intermediate Hives Verified 05/25/25 20:52 [From Zithromax Z-Konrad] Penicillins Allergy Intermediate rash Verified 05/25/25 20:52 phenylpropanolamine Allergy Intermediate RASH Verified 05/25/25 20:52 phenyltoloxamine Allergy Intermediate RASH Verified 05/25/25 20:52 venlafaxine Allergy Intermediate abnormal Verified 05/25/25 20:52 sexual function levofloxacin Allergy Unknown unknown Verified 05/25/25 20:52 mirtazapine AdvReac Severe dysphoria Verified 05/25/25 20:52 adhesive tape AdvReac Intermediate pulls off Verified 05/25/25 20:52 skin sinubid Allergy Intermediate Hives Uncoded 05/25/25 20:52 Home Medications Medication Instructions Recorded Confirmed Type ascorbic acid (vitamin C) 500 mg 1 cap PO 3XWK 08/15/18 05/25/25 History capsule atorvastatin 80 mg tablet 80 mg PO HS 08/15/18 05/25/25 History cholecalciferol (vitamin D3) 25 1,000 unit PO QPM 08/15/18 05/25/25 History mcg (1,000 unit) capsule (Vitamin D3) clonazepam 0.5 mg tablet 0.25 mg PO DAILY PRN Anxiety 08/15/18 05/25/25 History ferrous sulfate 325 mg (65 mg 325 mg PO 3XWK 08/15/18 05/25/25 History iron) tablet nitroglycerin 0.4 mg sublingual 1 dose sublingual UD PRN Angina 08/15/18 05/25/25 History tablet insulin aspart U-100 100 unit/mL See Rx Instructions .Route .COMPLEX 10/31/22 05/25/25 History subcutaneous solution (Novolog U-100 Insulin aspart) insulin glargine 100 unit/mL (3 32 unit subcut QDD 10/31/22 05/25/25 History mL) subcutaneous pen (Lantus Solostar U-100 Insulin) isosorbide mononitrate 60 mg 90 mg PO QAM 10/31/22 05/25/25 History tablet,extended release 24 hr upzmue-[id number]-zxibpsg (pork) 1 cap PO DAILY 10/31/22 05/25/25 History 3,000-9,500-15,000 unit capsule,del rel (Creon) sertraline 50 mg tablet 50 mg PO QAM 10/31/22 05/25/25 History torsemide 20 mg tablet 60 mg PO BID 12/24/22 05/25/25 History cyanocobalamin (vitamin B-12) 500 500 mcg PO PM 08/19/24 05/25/25 History mcg tablet magnesium chloride 71.5 mg 71.5 mg PO BID 08/19/24 05/25/25 History (magnesium chloride) tablet,delayed release (Slow-Mag) semaglutide 0.25 mg or 0.5 mg (2 0.5 mg subcut WK 08/19/24 05/25/25 History mg/3 mL) subcutaneous pen injector (Ozempic) zolpidem 5 mg tablet 5 mg PO HS Sleep 08/19/24 05/25/25 History clopidogrel 75 mg tablet 75 mg PO QAM #30 tabs 08/23/24 05/25/25 Rx warfarin 2 mg tablet See Rx Instructions .Route .COMPLEX 10/04/24 05/25/25 History Portable Oxygen #1 ea 12/24/24 12/24/24 Rx tiotropium 2.5 mcg-olodaterol 2.5 2 puff inhalation DAILY #4 grams 01/21/25 05/25/25 Rx mcg/actuation mist for inhalation (Stiolto Respimat) oxybutynin chloride 5 mg tablet 5 mg PO TID #90 tabs 02/11/25 05/25/25 Rx albuterol sulfate 90 mcg/actuation 2 puff inhalation QAM Shortness Of 05/25/25 05/25/25 History aerosol inhaler (Ventolin HFA) Breath cranberry 500 mg capsule 500 mg PO QDL 05/25/25 05/25/25 History metformin 500 mg tablet 500 mg PO ACHS 05/25/25 05/25/25 History metoprolol succinate 50 mg 25 mg PO QPM 05/25/25 05/25/25 History tablet,extended release 24 hr Patient History Medical History CAD (coronary artery disease) HFrEF (heart failure with reduced ejection fraction) Posterior cerebral artery syndrome Carotid artery stenosis Hx MRSA infection 2014 unknown source-[facility] Hx of sepsis hospitalized 09/10/22 [facility]- w/ kidney infection- multiple kidney infections in the past few months Christian catheter in place Pacemaker [employer] 2015- last checked 09/2022 GERD (gastroesophageal reflux disease) IBS (irritable bowel syndrome) Diabetes mellitus, type 2 On anticoagulant therapy on warfarin Anxiety Depression Stroke 08/28/21- right sided weakness and hip weakness 2012--short term memory loss, "left/right eye top right corner can not see out of"--d/t clot, reason for warfarin Hypertension Hyperlipidemia 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 Flory Avalos Myocardial Infarction 1994 and 2001 Sleep apnea cpap Chronic obstructive pulmonary disease Asthma inhalers daily and prn Surgical History History of prostate surgery laser procedure History of total left hip replacement History of colonoscopy History of esophagogastroduodenoscopy (EGD) History of cholecystectomy History of tooth extraction all teeth Hx of parathyroidectomy partial History of bilateral cataract extraction History of angioplasty 1994 @ [place] History of heart artery stent x4--10/2001, 11/2007, 04/2015; [address] [facility] [place] History of cardiac cath 2001 @ [facility]/2007 X 1 STENT @ [facility]/2014 [place] 1 [place] [facility] 2018 [facility] X 2 Family History Aunt Family history of diabetes mellitus Other No family history of adverse response to anesthesia Social History Smoking Status: Former smoker Tobacco Type: Cigarettes Cigarettes Per Day: QUIT 01/1995; Smoking End Date: 1994; Second Hand Exposure: No; Do You Dip or Chew Tobacco: No; Hx Alcohol Use: No Hx Substance Use: No Preferred Language: Sri Lankan Communication Ability: Effective 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 WEIGHT/BMI reviewed. GEN: Pleasant, well-developed, NAD. PSYCH: Good Judgment. AOx3. Normal memory, mood, and affect. HEENT -Head: NC/AT; -Eyes: PERRL, EOMI. No discharge or redn ess; -Ears: External ears are normal. -Nose: Normal nares. NECK: Supple, with no masses. CV: RRR, no m/r/g. LUNGS: CTAB, no w/r/c. ABD: N/A : N/A SKIN: Warm, well perfused. No skin rashes or abnormal lesions. MSK: No deformities, Normal gait. EXT: No clubbing, cyanosis, or edema. NEURO: Normal muscle strength and tone. No focal deficits. Results & Data Results & Data Vital Signs (Past 12 Hours) Vital Signs Temp Pulse Pulse Resp BP Pulse Ox O2 Del Method 05/26/25 13:11 90 18 94 Nasal Cannula 05/26/25 11:33 36.6 C 100 H 18 128/66 91 Nasal Cannula 05/26/25 08:26 Nasal Cannula 05/26/25 07:33 76 05/26/25 07:32 36.7 C 97 H 16 124/66 92 Nasal Cannula 05/26/25 07:01 91 H 18 91 Nasal Cannula 05/26/25 03:28 36.6 C 94 H 20 115/63 92 Nasal Cannula O2 Flow Rate 05/26/25 13:11 2 05/26/25 11:33 2 05/26/25 08:26 2 05/26/25 07:33 05/26/25 07:32 2 05/26/25 07:01 2 05/26/25 03:28 2 Laboratory Results 05/26/25 06:06 05/26/25 06:06 Abnormal Lab Results 05/25/25 05/25/25 05/25/25 19:20 22:47 Unknown WBC RBC Hgb Hct MCV MCH MCHC RDW Std Deviation RDW Coeff of Junie Plt Count MPV Immature Gran % (Auto) Neut % (Auto) Lymph % (Auto) Thomas % (Auto) Eos % (Auto) Baso % (Auto) Neut # (Auto) Lymph # (Auto) Thomas # (Auto) Eos # (Auto) Baso # (Auto) Immature Gran # (Auto) Echinocytes PT INR VBG pH 7.39 VBG pCO2 50 VBG pO2 35 VBG HCO3 30 VBG O2 Saturation 69.6 VBG Base Excess 4.1 Sodium Potassium Chloride Carbon Dioxide Anion Gap BUN Creatinine Est Cr Clr Drug Dosing eGFR BUN/Creatinine Ratio Glucose POC Glucose Estimat Average Glucose Hemoglobin A1c Calcium Magnesium 1.6 L Troponin I High Sens 23.6 H Urine Color Urine Appearance Urine pH Ur Specific Ramah Urine Protein Urine Glucose (UA) Urine Ketones Urine Blood Urine Nitrite Urine Bilirubin Urine Urobilinogen Ur Leukocyte Esterase Urine WBC (Auto) Urine RBC (Auto) U Hyaline Cast (Auto) U Epithel Cells (Auto) Urine Bacteria (Auto) Urine Comment Adenovirus (PCR) Not Detected B. pertussis DNA (PCR) Not Detected B.parapertussis DNA PCR Not Detected C. pneumoniae DNA (PCR) Not Detected Coronavirus OC43 (PCR) Not Detected Coronavirus HKU1 (PCR) Not Detected Coronavirus 229E (PCR) Not Detected SARS-CoV-2 (PCR) Not Detected Coronavirus NL63 (PCR) Not Detected Human Metapneumovir PCR Not Detected Influenza Type A (PCR) Not Detected Influenza Type B (PCR) Not Detected M. pneumoniae (PCR) Not Detected Parainfluenza 1 (PCR) Not Detected Parainfluenza 2 (PCR) Not Detected Parainfluenza 3 (PCR) Not Detected Parainfluenza 4 (PCR) Not Detected RSV (PCR) Not Detected Entero/Rhino (PCR) DETECTED A 05/26/25 05/26/25 05/26/25 00:00 00:04 00:35 WBC RBC Hgb Hct MCV MCH MCHC RDW Std Deviation RDW Coeff of Junie Plt Count MPV Immature Gran % (Auto) Neut % (Auto) Lymph % (Auto) Thomas % (Auto) Eos % (Auto) Baso % (Auto) Neut # (Auto) Lymph # (Auto) Thomas # (Auto) Eos # (Auto) Baso # (Auto) Immature Gran # (Auto) Echinocytes PT INR VBG pH VBG pCO2 VBG pO2 VBG HCO3 VBG O2 Saturation VBG Base Excess Sodium Potassium Chloride Carbon Dioxide Anion Gap BUN Creatinine Est Cr Clr Drug Dosing eGFR BUN/Creatinine Ratio Glucose POC Glucose 355 H* 322 H* Estimat Average Glucose Hemoglobin A1c Calcium Magnesium Troponin I High Sens Urine Color Yellow Urine Appearance Clear Urine pH >= 9.0 H Ur Specific Ramah 1.017 Urine Protein 1+ H Urine Glucose (UA) 1+ H Urine Ketones Negative Urine Blood 1+ H Urine Nitrite Positive A Urine Bilirubin Negative Urine Urobilinogen Negative Ur Leukocyte Esterase 3+ H Urine WBC (Auto) 0-5 Urine RBC (Auto) 3-5 H U Hyaline Cast (Auto) 0-2 U Epithel Cells (Auto) 0-2 Urine Bacteria (Auto) 4+ H Urine Comment Adenovirus (PCR) B. pertussis DNA (PCR) B.parapertussis DNA PCR C. pneumoniae DNA (PCR) Coronavirus OC43 (PCR) Coronavirus HKU1 (PCR) Coronavirus 229E (PCR) SARS-CoV-2 (PCR) Coronavirus NL63 (PCR) Human Metapneumovir PCR Influenza Type A (PCR) Influenza Type B (PCR) M. pneumoniae (PCR) Parainfluenza 1 (PCR) Parainfluenza 2 (PCR) Parainfluenza 3 (PCR) Parainfluenza 4 (PCR) RSV (PCR) Entero/Rhino (PCR) 05/26/25 05/26/25 05/26/25 06:06 07:19 11:04 WBC 5.62 RBC 4.89 Hgb 15.6 Hct 45.5 MCV 93.0 MCH 31.9 MCHC 34.3 RDW Std Deviation 48.1 H RDW Coeff of Junie 14.0 Plt Count 172 MPV 8.9 L Immature Gran % (Auto) 0.2 Neut % (Auto) 91.6 Lymph % (Auto) 7.5 Thomas % (Auto) 0.5 Eos % (Auto) 0.0 Baso % (Auto) 0.2 Neut # (Auto) 5.15 Lymph # (Auto) 0.42 L Thomas # (Auto) 0.03 L Eos # (Auto) 0.00 Baso # (Auto) 0.01 Immature Gran # (Auto) 0.01 Echinocytes 1+ PT 21.3 H INR 2.1 H VBG pH VBG pCO2 VBG pO2 VBG HCO3 VBG O2 Saturation VBG Base Excess Sodium 138 Potassium 4.4 Chloride 106 Carbon Dioxide 24 Anion Gap 8 BUN 35 H Creatinine 1.41 H Est Cr Clr Drug Dosing 44.6 eGFR 51.97 BUN/Creatinine Ratio 24.8 H Glucose 263 H POC Glucose 239 H 346 H* Estimat Average Glucose 146 Hemoglobin A1c 6.7 H Calcium 8.9 Magnesium 2.3 Troponin I High Sens Urine Color Urine Appearance Urine pH Ur Specific Ramah Urine Protein Urine Glucose (UA) Urine Ketones Urine Blood Urine Nitrite Urine Bilirubin Urine Urobilinogen Ur Leukocyte Esterase Urine WBC (Auto) Urine RBC (Auto) U Hyaline Cast (Auto) U Epithel Cells (Auto) Urine Bacteria (Auto) Urine Comment Adenovirus (PCR) B. pertussis DNA (PCR) B.parapertussis DNA PCR C. pneumoniae DNA (PCR) Coronavirus OC43 (PCR) Coronavirus HKU1 (PCR) Coronavirus 229E (PCR) SARS-CoV-2 (PCR) Coronavirus NL63 (PCR) Human Metapneumovir PCR Influenza Type A (PCR) Influenza Type B (PCR) M. pneumoniae (PCR) Parainfluenza 1 (PCR) Parainfluenza 2 (PCR) Parainfluenza 3 (PCR) Parainfluenza 4 (PCR) RSV (PCR) Entero/Rhino (PCR) 05/26/25 05/26/25 16:21 20:20 WBC RBC Hgb Hct MCV MCH MCHC RDW Std Deviation RDW Coeff of Junie Plt Count MPV Immature Gran % (Auto) Neut % (Auto) Lymph % (Auto) Thomas % (Auto) Eos % (Auto) Baso % (Auto) Neut # (Auto) Lymph # (Auto) Thomas # (Auto) Eos # (Auto) Baso # (Auto) Immature Gran # (Auto) Echinocytes PT INR VBG pH VBG pCO2 VBG pO2 VBG HCO3 VBG O2 Saturation VBG Base Excess Sodium Potassium Chloride Carbon Dioxide Anion Gap BUN Creatinine Est Cr Clr Drug Dosing eGFR BUN/Creatinine Ratio Glucose POC Glucose 348 H* 295 H Estimat Average Glucose Hemoglobin A1c Calcium Magnesium Troponin I High Sens Urine Color Urine Appearance Urine pH Ur Specific Ramah Urine Protein Urine Glucose (UA) Urine Ketones Urine Blood Urine Nitrite Urine Bilirubin Urine Urobilinogen Ur Leukocyte Esterase Urine WBC (Auto) Urine RBC (Auto) U Hyaline Cast (Auto) U Epithel Cells (Auto) Urine Bacteria (Auto) Urine Comment Adenovirus (PCR) B. pertussis DNA (PCR) B.parapertussis DNA PCR C. pneumoniae DNA (PCR) Coronavirus OC43 (PCR) Coronavirus HKU1 (PCR) Coronavirus 229E (PCR) SARS-CoV-2 (PCR) Coronavirus NL63 (PCR) Human Metapneumovir PCR Influenza Type A (PCR) Influenza Type B (PCR) M. pneumoniae (PCR) Parainfluenza 1 (PCR) Parainfluenza 2 (PCR) Parainfluenza 3 (PCR) Parainfluenza 4 (PCR) RSV (PCR) Entero/Rhino (PCR) Diagnostic Findings Chest X-Ray 05/25/25 17:15 Chest radiograph, one view History: Chest pain Comparison: 10/27/2024 Findings: Single AP view of the chest performed. No focal consolidation or pleural effusion. No pneumothorax. The cardiomediastinal silhouette is within normal limits. Normal pulmonary vascularity. No evidence for lymphadenopathy. Left chest wall single-lead AICD. Elevated left hemidiaphragm with subjacent atelectasis similar to prior. No visualized bony or soft tissue abnormality. Impression: No acute process Electronically signed by Bin Clancy 05-25-2025 5:48 PM PG Care Time/CCT Total # of Minutes Spent Total Time Spent with Patient: Total time spent is greater than 50% in coordination of care (as documented) at patient's floor/unit and/or counseling patient: Coding Level of Care Code 80141 INT INP/OBS CARE 2/55MIN Diagnoses Pulmonary nodule R91.1 Acute exacerbation of chronic obstructive pulmonary disease J44.1 Hypoxic respiratory failure J96.91 Pulmonary hypertension I27.20 Viral upper respiratory infection J06.9 Breath shortness R06.02 Sleep apnea G47.30 Asthma J45.909 Chronic obstructive pulmonary disease J44.9
--- NOTE | 2025-05-26 14:09 | Pharmacy Report ---
Pharmacy Glycemic Short Note 2 - Date of Service May 26, 2025 - Glycemic Short BSG Results (Last 24 hours): 05/25/25 05/25/25 05/26/25 17:33 20:49 00:00 Glucose 138 H POC Glucose 124 H 355 H* 05/26/25 05/26/25 05/26/25 00:04 06:06 07:19 Glucose 263 H POC Glucose 322 H* 239 H 05/26/25 11:04 Glucose POC Glucose 346 H* OUTPATIENT ANTIDIABETIC REGIMEN: * Insulin glargine 32 units daily at 1630 * Insulin aspart 18 units with breakfast, 14 units with lunch, and 10 units with dinner * Metformin 500mg ACHS * Semaglutide 0.5mg SQ weekly * HbA1c: 6.7% (05/26/2025) ASSESSMENT: * Kevyn is a 74 year old male with T2DM who presents to the hospital with hypoxic respiratory failure * Placed on methylprednisolone 60mg x1 then prednisone 40mg daily for COPD exacerbation * Glucose values 120-130 before steroids * After steroid administration, glucose values 240-350 * Given that steroids will continue for a few days, increased his glargine dose to 40 units and tightened his sliding scale insulin to CF 20, CR 7 * These parameters are estimated based on his home insulin needs and also around a stress level of 3 per insulin calculator * Added sliding scale glucose checks 05/27 0000 and 0400 to further manage hyperglycemia * If unable to get the glucose under 250 with SQ insulin, will consider using insulin drip to calculate requirements and achieve quicker control * T2DM diet * Stressors: infection, steroids PLAN FOR INPATIENT GLYCEMIC CONTROL: * Hold outpatient oral diabetes medications * Basal insulin * Lantus 40 units SQ QDD * Bolus insulin * NovoLog per scale ACHS or Q6hrs while NPO * Goal Range: Low 110 mg/dL - High 140 mg/dL * Correction Factor: 20 mg/dL/unit * Nutritional / Prandial insulin per carb ratio of 1 unit per 7 grams CHO consumed
[2025-05-26] MEDS ORDERED: LANTUS PER UNIT CHARGE SQ SCH (16:30)
[2025-05-26] MEDS: LANTUS PER UNIT CHARGE SQ SCH (17:44)
[2025-05-26] MEDS: CHOLECALCIFEROL 25 MCG (1000 UNITS) TAB PO SCH (20:46)
[2025-05-26] MEDS: CYANOCOBALAMIN (B-12) 500 MCG TABLET PO SCH (20:47)
[2025-05-27] MEDS: INSULIN ASPART PER UNIT CHARGE SC SCH (00:42)
[2025-05-27 03:49] VITALS: TEMP 97.9
[2025-05-27 06:02] LABS: Hematocrit (blood only) 41.0 % (42.0-52.0); Hemoglobin 14.5 g/dl (14.0-18.0); Immature Granulocytes # (auto) 0.02 K/uL (0.01-0.20); Immature Granulocytes % (auto) 0.2 %; Mean Corpuscular Hemoglobin 32.7 pg (25.0-34.0); Mean Corpuscular Volume 92.3 fL (80.0-100.0); Platelet Count 201 K/uL (130-400); RDW Standard Deviation 47.5 fL (36.4-46.3); Red Blood Count 4.44 M/uL (4.70-6.10); White Blood Count 9.89 K/ul (4.8-10.8)
[2025-05-27 06:22] LABS: Anion Gap 8.0 (3-11); Blood Urea Nitrogen 46.0 mg/dl (6-23); Calcium 8.7 mg/dl (8.6-10.3); Carbon Dioxide 25.0 mmol/L (21-32); Chloride 106.0 mmol/L (98-107); Creatinine Clr Calc Pharmacy 41.7 ml/min; Glucose 166.0 mg/dl (70-99(Fasting)); Potassium 4.2 mmol/L (3.5-5.1); Sodium 139.0 mmol/L (136-145)
[2025-05-27 07:56] VITALS: BP 106/50; RESP 18; O2SAT 93
[2025-05-27 10:05] VITALS: PULSE 81
--- NOTE | 2025-05-27 11:51 | Discharge Summary ---
Date of Service May 27, 2025 Admission HPI Per Admitting Provider History obtained from patient and records. Medical history significant for chronic systolic heart failure status post ICD (EF 30%, TTE 2024), valvular heart disease (moderate MR/mild AR/TR), CAD status post stent/PVD, HTN, hyperlipidemia, CVA, pulmonary hypertension, COPD, LURDES on CPAP, CRI (baseline creatinine 1.3), primary hyperparathyroidism status post surgery, DM2 insulin requiring, GERD, BPH status post surgery/suprapubic catheter, anxiety/mood disorder, history left toe osteomyelitis, past tobacco abuse. Last confinement September 2024 for multilobar pneumonia. 5 days history of cough symptoms productive of junky yellow sputum with worsening SOB. Denies chest pain, fluid retention, aspiration. 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 O2 sats 80s at home. Lowest O2 sats of 80s documented at the ER. Solu-Medrol and neb treatment administered at the ER. 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 [employer] Admission Exam Per Admitting Provider GENERAL: Comfortable, pleasant, obese, no respiratory distress SKIN: Normal color, warm HEENT: Alopecia, pink palpebral conjunctivae, no ptosis, dry buccal mucosa, nasal cannula in place NECK : Supple, no tenderness CHEST : Decreased breath sounds, diffuse expiratory wheezes, no tenderness HEART : RRR, no obvious murmurs ABDOMEN: Some distention, nontender EXTREMITIES : No LE swelling/tenderness, palpable pulses, no other conspicuous deformities noted NEUROLOGIC : Coherent, no facial asymmetry, no other gross focality Principal Diagnosis Acute hypoxemic respiratory failure underlying pulmonary hypertension Secondary to COPD exacerbation secondary to complicated bronchitis Discharge Exam GENERAL: Comfortable, pleasant, obese, no respiratory distress SKIN: Normal color, warm HEENT: Alopecia, pink palpebral conjunctivae, no ptosis, dry buccal mucosa, nasal cannula in place NECK : Supple, no tenderness CHEST : Occasional wheezes bilaterally HEART : RRR, no obvious murmurs ABDOMEN: Some distention, nontender EXTREMITIES : No LE swelling/tenderness, palpable pulses, no other conspicuous deformities noted NEUROLOGIC : Coherent, no facial asymmetry, no other gross focality Discharge Data Allergies Allergy/AdvReac Type Severity Reaction Status Date / Time azithromycin Allergy Intermediate Hives Verified 05/25/25 20:52 [From Zithromax Z-Konrad] Penicillins Allergy Intermediate rash Verified 05/25/25 20:52 phenylpropanolamine Allergy Intermediate RASH Verified 05/25/25 20:52 phenyltoloxamine Allergy Intermediate RASH Verified 05/25/25 20:52 venlafaxine Allergy Intermediate abnormal Verified 05/25/25 20:52 sexual function levofloxacin Allergy Unknown unknown Verified 05/25/25 20:52 mirtazapine AdvReac Severe dysphoria Verified 05/25/25 20:52 adhesive tape AdvReac Intermediate pulls off Verified 05/25/25 20:52 skin sinubid Allergy Intermediate Hives Uncoded 05/25/25 20:52 Consultations 05/25/25 21:27 ED Decision to Admit Stat Hospital Course (1) Acute exacerbation of chronic obstructive pulmonary disease: Plan Patient presented to the hospital with shortness of breath Respiratory viral panel positive for Rhinovirus Chest x-rayno acute finding Patient was admitted to medical floor; was started on [id number] breathing treatment, steroids, antibiotics, budesonide and formoterol nebs. Patient reported improvement in the symptoms. Patient was prescribed trelegy, overall antibiotic and prednisone at the time of the discharge. Patient to follow-up PCP and pulmonology after discharge. Two-step oxygen evaluation at the time of the discharge; was similar to patient's baseline. Please note the above document was generated using voice recognition software. It may contain grammatical, syntax or spelling errors. Any formal questions or concerns about the content, text or information contained within the body of this dictation should be directly addressed to the provider for clarification Total Time Total Time Spent Total Time Spent (In Minutes): 45 Total Time Includes: Examination of the Patient, Discharge Planning, Medication Reconciliation, Communication With Other Providers and Other Discharge Plan Discharge Items Patient Disposition: Home - Self-Care Reason For Visit: RESP FAILURE Discharge Diagnosis: COPD excerebation Condition on Discharge: Fair Activity: Resume your previous activity Non-emergency contact: Primary Care Provider Call non-emergency contact if: you have any medication questions and your symptoms worsen Follow-up/Referrals: Leigh Dubon MD, FCCP [Physician] - 11/11/25 3:30 pm (Hospital follow up appointment on June 01, at 3:30 pm.) Edelmira Scott PA-C [Primary Care Provider] - (Date & Time 06/01/2025 9:00 AM Provider: Edelmira Scott PA-C [facility], [place] ) Diet: Regular Addtl Attending Provider Instructions: You were admitted to the hospital due to COPD flareup. The cause for the COPD flareup is common cold/rhinovirus. You are evaluated by pulmonology during the hospitalization. Your inhaler Stiolto is changed to Trelegy Ellipta. If the new inhaler is not covered by the insurance; please continue to use Stiolto. You are prescribed following medication as well; Take prednisone 40 mg once a day for 2 days Take doxycycline 100 mg twice a day for 4 days Use the ipratropium bromide-albuterol solution in the nebulizer machine, and use it as needed every 8 hours. Please follow-up with your PCP and pulmonology. Pending Studies at Discharge: No Stand-Alone Forms: My [facility], Smoking Cessation Medications and DC Order Prescriptions: New doxycycline hyclate 100 mg Capsule 100 mg PO BID 4 Days Qty: 8 0RF prednisone 20 mg Tablet 40 mg PO DAILY 2 Days Qty: 4 0RF Trelegy Ellipta 200-62.5-25 mcg blister with device 1 inh inhalation DAILY Qty: 60 0RF ipratropium-albuterol 0.5 mg-3 mg(2.5 mg base)/3 mL solution for nebulization 3 ml inhalation Q8H PRN (Reason: wheezing) Qty: 90 0RF Continued oxybutynin chloride 5 mg tablet 5 mg PO TID Qty: 90 3RF (DME) Portable Oxygen Misc See Rx Instructions .MEDSUPPLY Qty: 1 0RF Rx Instructions: Oxygen 2 liters continuous via nasal cannula on exertion with portable concentrator. MICHAELA 99 atorvastatin 80 mg Tablet 80 mg PO HS clonazepam 0.5 mg Tablet 0.25 mg PO DAILY PRN (Reason: Anxiety) ferrous sulfate 325 mg (65 mg iron) Tablet 325 mg PO 3XWK Rx Instructions: sat//sun EVENINGS nitroglycerin 0.4 mg Tablet, Sublingual 1 dose Sublingual UD PRN (Reason: Angina) cholecalciferol (vitamin D3) [Vitamin D3] 1,000 unit Capsule 1,000 unit PO QPM ascorbic acid (vitamin C) 500 mg Capsule 1 cap PO 3XWK Rx Instructions: tue/ur/sat EVENINGS isosorbide mononitrate 60 mg Tablet Extended Release 24 Hr 90 mg PO QAM insulin aspart U-100 [Novolog U-100 Insulin aspart] 100 unit/mL Solution See Rx Instructions .ROUTE .COMPLEX Rx Instructions: 1 sliding scale dose subcutaneously ;18 UNITS AM, 14 UNITS NOON, 10 UNITS DINNER sertraline 50 mg Tablet 50 mg PO QAM insulin glargine [Lantus Solostar U-100 Insulin] 100 unit/mL (3 mL) Insulin Pen 32 unit SUBCUT QDD Creon 3,000-9,500- 15,000 unit Capsule,Delayed Release(Dr/Ec) 1 cap PO DAILY torsemide 20 mg tablet 60 mg PO BID zolpidem 5 mg tablet 5 mg PO HS cyanocobalamin (vitamin B-12) 500 mcg Tablet 500 mcg PO PM Slow-Mag 71.5 mg tablet,delayed release (DR/EC) 71.5 mg PO BID Ozempic 0.25 mg or 0.5 mg (2 mg/3 mL) Pen Injector 0.5 mg SUBCUT WK Rx Instructions: SUNDAYS clopidogrel 75 mg Tablet 75 mg PO QAM Qty: 30 0RF warfarin 2 mg tablet See Rx Instructions .ROUTE .COMPLEX Rx Instructions: TAKES 3 MG ON SUNDAYS ONLY, THEN TAKES 2 MG ALL OTHER DAYS metformin 500 mg Tablet 500 mg PO ACHS metoprolol succinate 50 mg Tablet Extended Release 24 Hr 25 mg PO QPM cranberry 500 mg Capsule 500 mg PO QDL Rx Instructions: administer with meals albuterol sulfate [Ventolin HFA] 90 mcg/actuation HFA aerosol inhaler 2 puff INHALATION QAM Discontinued Stiolto Respimat 2.5-2.5 mcg/actuation mist 2 puff inhalation DAILY Qty: 4 6RF Discharge Orders: Discharge Order (Routine); Ordered 05/27/25 Ordered By: Hilario Knott/Other Patient Handouts: Managing Type 2 Diabetes Admission Data Admit Date/Time: 05/25/25 21:44 Attending Provider: Hilario Marrufo Admit Provider: Harvey Lagunas Primary Care Provider: Edelmira Scott Other Providers: Harvey Lagunas Other Interventions: Discharge Summary Assessment (RN) Last Done: 05/27/25 10:01
== END 2025-05-27 11:00 | disposition home or self-care (01) | DRG 189 ==
LOC: ED 16:58 → 2E 21:44